=== PATIENT | male | born 1960 | race American Indian/Alaskan Native ===

== ENCOUNTER 2019-11-22 20:45 | Inpatient (IN) | payer OTHER ==
--- NOTE | 2019-11-22 21:10 | Consultation ---
History of Present Illness Consult date: 11/22/19 Chief complaint: [facility] [facility] Services Date of Service: 11/22/2019 20:29:18 Impression: Left Hemispheric Infarct MCA Distribution Infarct Comments/Sign-Out: Right sided deficit, left MCA ischemic signs on CT. NO information, unknown LKN, reports stroke "yesterday", medications unknown. No tPA due to lack of information and early ischemic signs on CT. CTA pending, if [facility] transfer for CRIS. Metrics: Last Known Well: Unknown [employer] Notification Time: 11/22/2019 20:28:54 Arrival Time: 11/22/2019 20:45:28 Stamp Time: 11/22/2019 20:29:18 Time First Login Attempt: 11/22/2019 20:31:05 Video Start Time: 11/22/2019 20:31:05 Symptoms: altered NIHSS Start Assessment Time: 11/22/2019 20:47:00 Patient is not a candidate for tPA. Patient was not deemed candidate for tPA thrombolytics because of Unknown history, time of onset, meds. Core infarct on CT. Video End Time: 11/22/2019 21:05:02 CT head was reviewed and results were: early anterior left MCA ischemic signs. ASPECT 7 Clinical Presentation is Suggestive of Large Vessel Occlusive Disease, Recommendations are as Follows CTA Head and Neck. Advanced Imaging to be Reviewed by ED Provider and CRIS. ED Physician notified of diagnostic impression and management plan on 11/22/2019 21:04:40 Our recommendations are outlined below. Recommendations: Activate Stroke Protocol Admission/Order Set Stroke/Telemetry Floor Neuro Checks Bedside Swallow Eval DVT Prophylaxis IV Fluids, Normal Saline Head of Bed 30 Degrees Euglycemia and Avoid Hyperthermia (PRN Acetaminophen) Rectal ASA Routine Consultation with Inhouse Neurology for Follow up Care Sign Out: Discussed with Emergency Department Provider History of Present Illness: Patient is a 59 year old Male. Handedness unknown. 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 Patient can not give any history, no family available. Medications unknown. Prior stroke unknown type or when. Patient states he had a stroke "yesterday". he is not a reliable historian. For EMS glucose 111, BP 110/69, 99% saturation on room air, pulse 88. Last seen normal was within 4.5 hours. There is no history of hemorrhagic complications or intracranial hemorrhage. There is no history of Recent Anticoagulants. There is no history of recent major surgery. There is no history of recent stroke. Examination: BP(EMS 110/69, 108/89), Blood Glucose(111) 1A: Level of Consciousness - Alert; keenly responsive + 0 1B: Ask Month and Age - Could Not Answer Either Question Correctly + 2 1C: Blink Eyes & Squeeze Hands - Performs 1 Task + 1 2: Test Horizontal Extraocular Movements - Normal + 0 3: Test Visual Owusu - No Visual Loss + 0 4: Test Facial Palsy (Use Grimace if Obtunded) - Minor paralysis (flat nasolabial fold, smile asymmetry) + 1 5A: Test Left Arm Motor Drift - No Drift for 10 Seconds + 0 5B: Test Right Arm Motor Drift - Drift, but doesn't hit bed + 1 6A: Test Left Leg Motor Drift - No Drift for 5 Seconds + 0 6B: Test Right Leg Motor Drift - Drift, but doesn't hit bed + 1 7: Test Limb Ataxia (FNF/Heel-Solomon) - No Ataxia + 0 8: Test Sensation - Normal; No sensory loss + 0 9: Test Language/Aphasia - Severe Aphasia: Fragmentary Expression, Inference Needed, Cannot Identify Materials + 2 10: Test Dysarthria - Mild-Moderate Dysarthria: Slurring but can be understood + 1 11: Test Extinction/Inattention - No abnormality + 0 NIHSS Score: 9 Due to the immediate potential for life-threatening deterioration due to underlying acute neurologic illness, I spent 35 minutes providing critical care. This time includes time for face to face visit via telemedicine, review of medical records, imaging studies and discussion of findings with providers, the patient and/or family. Dr Yolanda Edwards [facility] Case [id number] Medications and Allergies Allergies Allergy/AdvReac Type Severity Reaction Status Date / Time Unable to Assess Allergy Unverified 11/22/19 20:49
--- NOTE | 2019-11-22 21:24 | Emergency Department Report ---
HPI - General Time Seen by Provider: 11/22/19 20:54 - HPI HPI: Room 18 The patient is a 59-year-old male present with a chief complaint of expressive aphasia and right-sided weakness. The patient is unable to provide a history and mostly replies "yes" regardless of the question asked of him. The patient reportedly from EMS had altered mental status and right-sided weakness with bystanders but states the symptoms may have began at approximately 18: 00 however this is unable to be corroborated. ED Past Medical Hx - Family History Family history: no significant - Social History Smoking Status: Unknown if ever smoked ED Review of Systems ROS: Stated complaint: CODE STROKE Other details as noted in HPI Comment: Unobtainable due to pts medical conditions Physical Exam - Physical Exam Physical Exam: GENERAL: The patient is well-developed well-nourished male lying on stretcher not appearing to be in acute distress. [] HEENT: Normocephalic. Atraumatic. Extraocular motions are intact. Patient has moist mucous membranes. NECK: Supple. Trachea midline CHEST/LUNGS: Clear to auscultation. There is no respiratory distress noted. HEART/CARDIOVASCULAR: Regular. There is no tachycardia. There is no gallop rub or murmur. ABDOMEN: Abdomen is soft, nontender. Patient has normal bowel sounds. There is no abdominal distention. SKIN: There is no rash. There is no edema. There is no diaphoresis. NEURO: The patient is awake and alert. The patient answers "yes" to most questions regardless of what is asked of him. The patient has a right-sided facial droop but otherwise cranial nerves II through XII grossly intact. Patient exhibits weakness raising right upper extremity and right lower extremity when compared to the left. MUSCULOSKELETAL: There is no evidence of acute injury. ED Course - Consultations Consultation #1: 11/22/19 22:17 Tele-neurology paged 11/22/19 22:32 CTA discussed with telemetry neurologist. Recommends patient be transferred to a higher level care where neurology and neurosurgery is present as they are concerned this could evolve into malignant MCA syndrome Consultation #2: 11/22/19 22:32 [facility] transfer line called 11/22/19 22:56 Case discussed with [facility] physician bell clerk Dr. Travis- no beds available Consultation #3: 11/22/19 22:37 [place] transfer line called 11/22/19 23:05 Case discussed with [facility] physician -states he has reviewed the CT scan and there is no acute intervention necessary at this time. He states it is reasonable to keep the patient admitted at this hospital and administer aspirin and Plavix and obtain an MRI. He states that the swelling is in a smaller branch and unlikely to develop into malignant MCA syndrome requiring craniotomy 11/22/19 23:16 Case discussed with [facility] physician- agrees with Dr. Ortega ED Medical Decision Making - Lab Data Result diagrams: 11/22/19 21:19 11/22/19 21:19 Laboratory Tests 11/22/19 11/22/19 11/22/19 21:19 21:19 21:19 WBC 8.9 RBC 4.07 Hgb 13.3 Hct 38.7 MCV 95 H MCH 33 H MCHC 35 H RDW 13.9 Plt Count 299 Lymph % (Auto) 32.6 Mills % (Auto) 10.1 H Eos % (Auto) 0.6 Baso % (Auto) 0.7 Lymph # 2.9 Mills # 0.9 H Eos # 0.0 Baso # 0.1 Seg Neutrophils % 56.0 Seg Neutrophils # 5.0 PT 13.7 INR 1.04 APTT 25.6 Thrombin Time Sodium 134 L Potassium 4.6 Chloride 100.4 Carbon Dioxide 24 Anion Gap 14 BUN 13 Creatinine 1.2 Estimated GFR > 60 BUN/Creatinine Ratio 11 Glucose 108 H Calcium 9.0 Troponin T < 0.010 11/22/19 21:19 WBC RBC Hgb Hct MCV MCH MCHC RDW Plt Count Lymph % (Auto) Mills % (Auto) Eos % (Auto) Baso % (Auto) Lymph # Mills # Eos # Baso # Seg Neutrophils % Seg Neutrophils # PT INR APTT Thrombin Time 16.5 Sodium Potassium Chloride Carbon Dioxide Anion Gap BUN Creatinine Estimated GFR BUN/Creatinine Ratio Glucose Calcium Troponin T - EKG Data -: EKG Interpreted by In EKG shows normal: sinus rhythm Rate: normal - EKG Data When compared to previous EKG there are: previous EKG unavailable Interpretation: other (No ischemic changes seen) - Radiology Data Radiology results: report reviewed (CT head, CTA neck, CTA head), image reviewed (CT head, CTA neck, CTA head) Findings [facility] [address] [place] [address] Cat Scan Report Signed Patient: AMY DELGADILLO MR#: [id number] : 1960 Acct:[id number] Age/Sex: 59 / M ADM Date: 11/22/19 Loc: ED Attending Dr: Ordering Physician: CARLOS A ROBERTS MD Date of Service: 11/22/19 Procedure(s): CT head/brain wo con Accession Number(s): [id number] cc: CARLOS A ROBERTS MD CT head/brain wo con INDICATION / CLINICAL INFORMATION: 59 years Male; neuro deficits <6hrs or sx present upon awakening. TECHNIQUE: Routine CT head without contrast. All CT scans at this location are performed using CT dose reduction for ALARA by means of automated exposure control. COMPARISON: None. FINDINGS: BRAIN / INTRACRANIAL CONTENTS: The motion degrades image quality. However, there is slight decrease attenuation involving the left frontal lobe including the operculum as well as along the left insula indicative of developing acute infarct at. There is associated mild mass effect and sulcal effacement. There is no clear CT evidence of acute intracranial hemorrhage. The ventricular system is appropriate in size and configuration. ORBITS: No significant abnormality of visualized orbits. SINUSES / MASTOIDS: There is near complete opacification of the visualized right maxillary sinus. There is scattered opacification within the right ethmoid air cells. CRANIOCERVICAL JUNCTION: No significant abnormality. ADDITIONAL FINDINGS: None. IMPRESSION: 1. There is mild edema involving left frontal lobe and insula as detailed above indicative of evolving acute infarct. The study was specified as code stroke and called to Dr. Roberts in the ER at 8:28 PM Central standard time. Signer Name: Dillan Dimas MD Signed: 11/22/2019 9:31 PM Workstation Name: [id number] Transcribed By: MR Dictated By: Dillan Dimas MD Electronically Authenticated By: Dillan Dimas MD Signed Date/Time: 11/22/192130 DD/ 24 TD/TT: Findings [facility] [address] [place] [address] Cat Scan Report Signed Patient: AMY DELGADILLO MR#: [id number] : 1960 Acct:[id number] Age/Sex: 59 / M ADM Date: 11/22/19 Loc: ED Attending Dr: Ordering Physician: CARLOS A ROBERTS MD Date of Service: 11/22/19 Procedure(s): CT angio neck Accession Number(s): [id number] cc: CARLOS A ROBERTS MD CT angio neck INDICA TION / CLINICAL INFORMATION: 59 years Male; Altered mental status, right facial droop. TECHNIQUE: Thin cut axial images obtained through the head during IV bolus contrast administration. Sagittal, coronal, and 3 plane MIP reconstructions performed by the technologist. NASCET type criteria used evalu ate stenoses. All CT scans at this location are performed using CT dose reduction for ALARA by means of automated exposure control. COMPARISON: None available. FINDINGS: CAROTID ARTERIES: There is mild calcified plaque involving left carotid bifurcation and proximal left ICA without significant stenosis by NASCET criteria. The left carotid arteries are otherwise unremarkable. There is also mild calcified plaque involving right carotid bifurcation and proximal right ICA without significant stenosis by NASCET criteria. VERTEBRAL ARTERIES: There is calcification at the origin of the right vertebral artery with mild stenosis at. The right vertebral artery is dominant. There is developmental hypo plasia of the left vertebral artery without significant focal narrowing. ARCH: There is developmental common origin of the brachiocephalic and left common carotid arteries. There are small foci of calcification near the origin of the left subclavian artery without significant stenosis. ADDITIONAL FINDINGS: There are scattered cervical lymph nodes particularly along the jugular chains which are nonspecific and correlation would be needed at. The largest nodes approaching [address] short axis diameter. There is also prominence of the base of tongue soft tissues indicative of lymphoid hypertrophy. IMPRESSION: There is mild calcification involving the proximal internal carotid arteries bi laterally without significant stenosis by NASCET criteria. There is calcification at the origin of the right vertebral artery with mild stenosis. Signer Name: Dillan Dimas MD Signed: 11/22/2019 9:58 PM Workstation Name: [id number] Transcribed By: MR Dictated By: Dillan Dimas MD Electronically A uthenticated By: Dillan Dimas MD Signed Date/Time: 11/22/192157 DD/ 50 TD/TT: Findings [facility] [address] [place] [address] Cat Scan Report Signed Patient: AMY DELGADILLO MR#: [id number] : 1960 Acct:[id number] Age/Sex: 59 / M ADM Date: 11/22/19 Loc: ED Attending Dr: Reji lam Physician: CARLOS A ROBERTS MD Date of Service: 11/22/19 Procedure(s): CT angio head Accession Number(s): [id number] cc: CARLOS A ROBERTS MD CT angio head INDICATION / CLINICAL INFORMATION: 59 years Male; Altered mental status, right facial droop. TECHNIQUE: Thin cut axial images obtained through the head during IV bolus contrast administration. Sagittal, coronal, and 3 plane MIP reconstructions performed by the technologist. NASCET type criteria used evaluate stenoses. Automated exposure control utilized for radiation reduction purposes. COMPARISON: None available. FINDINGS: INTERNAL CAROTID ARTERIES: There is no significant focal stenosis involving the distal internal carotid arteries by NASCET criteria. VERTEBROBASILAR SYSTEM: There is developmental hypoplasia the distal left vertebral artery. There is no significant focal stenosis involving mildly hypoplastic basilar artery. CEREBRAL ARTERIES: There is relative proximal bifurcation left MCA which represents a developmental variant. However, there is significant focal stenosis of the anterior branch with notable paucity of branches at within the left frontal region. Additionally, edema was seen at within the left frontal lobe including the operculum and insular region compatible with evolving infarct at. There is no significant foc al stenosis involving anterior cerebral or right middle cerebral arteries. 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 ANEURYSM: None identified. ADDITIONAL FINDINGS: There is near complete opacification of the right maxillary sinus. The dural venous sinuses opacify with contrast. IMPRESSION: There is marked focal stenosis involving the anterior branch of the left MCA bifurcation with decreased opacification of the left frontal branches as detailed above. There is edema within the left frontal operculum and insular region which correlates with the earlier CT and compatible with evolving infarct. Signer Name: Dillan Dimas MD Signed: 11/22/2019 10:08 PM Workstation Name: [id number] Transcribed By: MR Dictated By: Dillan Dimas MD Electronically Authenticated By: Dillan Dimas MD Signed Date/Time: 11/22/192207 DD/ 57 TD/TT: - Differential Diagnosis CVA Critical care attestation.: If time is entered above; I have spent that time in minutes in the direct care of this critically ill patient, excluding procedure time. ED Disposition Clinical Impression: CVA (cerebral vascular accident) Disposition: DC-[id number] OP ADMIT IP TO THIS HOSP Is pt being admited?: Yes Does the pt Need Aspirin: Yes Condition: Fair Time of Disposition: 23:17 (Hospitalist paged (Dr Gonzalez))
[2019-11-22 21:26] LABS: Basophils # (Auto) 0.1 K/mm3 (0.0-0.1); Basophils % (Auto) 0.7 % (0.0-1.8); Eosinophils % (Auto) 0.6 % (0.0-4.3); Hematocrit 38.7 % (35.5-45.6); Hemoglobin 13.3 gm/dl (11.8-15.2); Lymphocytes # (Auto) 2.9 K/mm3 (1.2-5.4); Lymphocytes % (Auto) 32.6 % (13.4-35.0); Mean Corpuscular HGB Conc 35 % (32-34); Mean Corpuscular Volume 95 fl (84-94); Monocytes # (Auto) 0.9 K/mm3 (0.0-0.8); Monocytes % (Auto) 10.1 % (0.0-7.3); Platelet Count 299 K/mm3 (140-440); Red Blood Count 4.07 M/mm3 (3.65-5.03); Red Cell Distribution Width 13.9 % (13.2-15.2)
--- NOTE | 2019-11-22 21:36 | Cat Scan Report ---
CT head/brain wo con INDICATION / CLINICAL INFORMATION: 59 years Male; neuro deficits <6hrs or sx present upon awakening. TECHNIQUE: Routine CT head without contrast. All CT scans at this location are performed using CT dos e reduction for ALARA by means of automated exposure control. COMPARISON: None. FINDINGS: BRAIN / INTRACRANIAL CONTENTS: The motion degrades image quality. However, there is slight decrease a ttenuation involving the left frontal lobe including the operculum as well as along the left insula i ndicative of developing acute infarct at. There is associated mild mass effect and sulcal effacement. There is no clear CT evidence of acute intracranial hemorrhage. The ventricular system is appropriat e in size and configuration. ORBITS: No significant abnormality of visualized orbits. SINUSES / MASTOIDS: There is near complete opacification of the visualized right maxillary sinus. The re is scattered opacification within the right ethmoid air cells. CRANIOCERVICAL JUNCTION: No significant abnormality. ADDITIONAL FINDINGS: None. IMPRESSION: 1. There is mild edema involving left frontal lobe and insula as detailed above indicative of evolvin g acute infarct. The study was specified as code stroke and called to Dr. Peraza in the ER at 8:28 PM Central standard t amarjit. Signer Name: Dillan Dimas MD Signed: 11/22/2019 9:31 PM Workstation Name: [id number]
[2019-11-22 21:39] LABS: INR 1.04 (0.87-1.13)
[2019-11-22 21:40] LABS: Partial Thromboplastin Time 25.6 Sec. (24.2-36.6)
[2019-11-22 21:49] LABS: BUN/Creatinine Ratio 11; Blood Urea Nitrogen 13 mg/dL (9-20); Hemolysis Index 15
--- NOTE | 2019-11-22 22:02 | Cat Scan Report ---
CT angio neck INDICATION / CLINICAL INFORMATION: 59 years Male; Altered mental status, right facial droop. TECHNIQUE: Thin cut axial images obtained through the head during IV bolus contrast administration. S agittal, coronal, and 3 plane MIP reconstructions performed by the technologist. NASCET type criteria used evaluate stenoses. All CT scans at this location are performed using CT dose reduction for ALAR A by means of automated exposure control. COMPARISON: None available. FINDINGS: CAROTID ARTERIES: There is mild calcified plaque involving left carotid bifurcation and proximal left ICA without significant stenosis by NASCET criteria. The left carotid arteries are otherwise unremar kable. There is also mild calcified plaque involving right carotid bifurcation and proximal right ICA withou t significant stenosis by NASCET criteria. VERTEBRAL ARTERIES: There is calcification at the origin of the right vertebral artery with mild sten osis at. The right vertebral artery is dominant. There is developmental hypoplasia of the left verteb ral artery without significant focal narrowing. ARCH: There is developmental common origin of the brachiocephalic and left common carotid arteries. T here are small foci of calcification near the origin of the left subclavian artery without significan t stenosis. ADDITIONAL FINDINGS: There are scattered cervical lymph nodes particularly along the jugular chains w hich are nonspecific and correlation would be needed at. The largest nodes approaching [address] short axis diameter. There is also prominence of the base of tongue soft tissues indicative of lym phoid hypertrophy. IMPRESSION: There is mild calcification involving the proximal internal carotid arteries bilaterally without sign ificant stenosis by NASCET criteria. There is calcification at the origin of the right vertebral artery with mild stenosis. Signer Name: Dillan Dimas MD Signed: 11/22/2019 9:58 PM Workstation Name: [id number]
--- NOTE | 2019-11-22 22:12 | Cat Scan Report ---
CT angio head INDICATION / CLINICAL INFORMATION: 59 years Male; Altered mental status, right facial droop. TECHNIQUE: Thin cut axial images obtained through the head during IV bolus contrast administration. S agittal, coronal, and 3 plane MIP reconstructions performed by the technologist. NASCET type criteria used evaluate stenoses. Automated exposure control utilized for radiation reduction purposes. COMPARISON: None available. FINDINGS: INTERNAL CAROTID ARTERIES: There is no significant focal stenosis involving the distal internal carot id arteries by NASCET criteria. VERTEBROBASILAR SYSTEM: There is developmental hypoplasia the distal left vertebral artery. There is no significant focal stenosis involving mildly hypoplastic basilar artery. CEREBRAL ARTERIES: There is relative proximal bifurcation left MCA which represents a developmental v ariant. However, there is significant focal stenosis of the anterior branch with notable paucity of b ranches at within the left frontal region. Additionally, edema was seen at within the left frontal lo be including the operculum and insular region compatible with evolving infarct at. There is no significant focal stenosis involving anterior cerebral or right middle cerebral arteries. 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 ANEURYSM: None identified. ADDITIONAL FINDINGS: There is near complete opacification of the right maxillary sinus. The dural jareth ous sinuses opacify with contrast. IMPRESSION: There is marked focal stenosis involving the anterior branch of the left MCA bifurcation with decreas ed opacification of the left frontal branches as detailed above. There is edema within the left front al operculum and insular region which correlates with the earlier CT and compatible with evolving inf arct. Signer Name: Dillan Dimas MD Signed: 11/22/2019 10:08 PM Workstation Name: [id number]
[2019-11-22] MEDS ORDERED: ASPIRIN 325 MG TAB PO ONE (22:19)
[2019-11-22] MEDS ORDERED: CLOPIDOGREL 300 MG TAB PO ONE (23:06)
[2019-11-23] MEDS ORDERED: MORPHINE 2 MG/1 ML INJ IV PRN (01:28)
[2019-11-23] MEDS ORDERED: ONDANSETRON 4 MG/2 ML INJ IV PRN (01:28)
[2019-11-23] MEDS ORDERED: PROMETHAZINE 25 MG RECT SUPP PR PRN (01:28)
[2019-11-23] MEDS ORDERED: ACETAMINOPHEN 325 MG TAB PO PRN (01:28)
[2019-11-23] MEDS ORDERED: METOCLOPRAMIDE 10 MG TAB PO PRN (01:28)
[2019-11-23] MEDS ORDERED: MAGNESIUM HYDROXIDE (MOM) ORAL LIQD UDC PO PRN (01:28)
--- NOTE | 2019-11-23 01:44 | History and Physical Report ---
History of Present Illness Date of examination: 11/23/19 Date of admission: 11/22/19 23:29 Chief complaint: Right sided weakness History of present illness: [id number]--[place] male presenting to the emergency room today with a complaint of expressive aphasia and right-sided weakness. Patient was brought into the emergency room by EMS. He was said to have had a change in mental status and right-sided weakness witnessed by bystanders who indicated that symptoms may have started about 1800 today. Patient unable to give a very good history corresponds by nodding his head when asked questions. CT scan of the head was compatible with CVA.Tele neurologist was consulted. Initial recommendation was to transfer to another facility however final decisi on as taken by the neurologists and neurosurgeons was to monitor patient in this facility as patient does not need any urgent intervention. Past History Past Medical History: other (Unknown) Past Surgical History: Other ( unknown) Social history: other ( unknown) Family history: other ( unknown) Medications and Allergies Allergies Allergy/AdvReac Type Severity Reaction Status Date / Time Unable to Assess Allergy Verified 11/23/19 00:04 Active Meds: Active Medications Acetaminophen (Tylenol) 650 mg PO Q4H PRN PRN Reason: Pain, Mild (1-3) Atorvastatin Calcium (Lipitor) 80 mg PO ONCE ONE Stop: 11/23/19 22:53 Bisacodyl (Dulcolax) 10 mg [place] QDAY PRN PRN Reason: Constipation Magnesium Hydroxide (Milk Of Magnesia) 30 ml PO Q4H PRN PRN Reason: Constipation Sodium Chloride (Sodium Chloride Flush Syringe 10 Ml) 10 ml INJ PRN PRN PRN Reason: LINE FLUSH Review of Systems ROS unobtainable: due to mental status Exam - Constitutional Vitals: Temp Pulse Resp BP Pulse Ox 98.5 F 58 L 18 112/61 94 11/22/19 21:39 11/23/19 01:00 11/22/19 21:05 11/23/19 01:00 11/23/19 01:00 General appearance: Present: no acute distress, well-nourished - EENT Eyes: Present: PERRL, EOM intact. Absent: scleral icterus ENT: hearing intact, clear oral mucosa, dentition normal - Neck Neck: Present: supple, normal ROM - Respiratory Respiratory effort: normal Respiratory: bilateral: CTA - Cardiovascular Rhythm: regular Heart Sounds: Present: S1 & S2. Absent: gallop, systolic murmur, diastolic murmur, rub - Extremities Extremities: no ischemia, pulses intact, pulses symmetrical, No edema, Full ROM Peripheral Pulses: within normal limits - Abdominal General gastrointestinal: Present: soft, non-tender, normal bowel sounds. Absent: mass - Integumentary Integumentary: Present: clear, warm, dry. Absent: rash - Musculoskeletal Musculoskeletal: right sided weakness - Psychiatric Psychiatric: appropriate mood/affect, intact judgment & insight, memory intact, cooperative - Neurologic Neurologic: CNII-XII intact, focal deficits (Right-sided weakness), moves all extremities HEART Score - HEART Score Troponin: Troponin T < 0.010 ng/mL (0.00-0.029) 11/22/19 21:19 Results - Labs CBC & Chem 7: 11/22/19 21:19 11/22/19 21:19 Labs: Abnormal lab results 11/22/19 11/22/19 Range/Units 21:19 21:19 MCV 95 H (84-94) fl MCH 33 H (28-32) pg MCHC 35 H (32-34) % [place] % (Auto) 10.1 H (0.0-7.3) % [place] # 0.9 H (0.0-0.8) K/mm3 Sodium 134 L (137-145) mmol/L Glucose 108 H (75-100) mg/dL Assessment and Plan - Patient Problems (1) CVA (cerebral vascular accident) Current Visit: Yes Status: Acute Plan to address problem: Patient admitted and placed on daily aspirin. We will schedule for carotid Doppler and MRI of the brain. We will place a consult to neurology for further evaluation and recommendation. (2) DVT prophylaxis Current Visit: Yes Status: Acute Plan to address problem: Patient placed on subcutaneous heparin. (3) Full code status Current Visit: Yes Status: Acute
[2019-11-23] MEDS: HEPARIN 5,000 UNIT/1 ML VIAL SUB-Q SCH ×3 (08:00→23:59)
[2019-11-23] MEDS ORDERED: HEPARIN 5,000 UNIT/1 ML VIAL ONE ×2 (08:02→14:38)
--- NOTE | 2019-11-23 11:59 | Vascular Lab Report ---
"DUPLEX DOPPLER ULTRASOUND CAROTID, BILATERAL INDICATION: stroke. COMPARISON: None available. FINDINGS: RIGHT CAROTID: No significant atherosclerotic plaque. CCA velocity: 123 cm/sec. ICA peak systolic velocity: 93 cm/sec. ICA/CCA PSV Ratio: Less than 1. Right Vertebral Artery: Antegrade flow. LEFT CAROTID: No significant atherosclerotic plaque. CCA velocity: 126 cm/sec. ICA peak systolic velocity: 94 cm/sec. ICA/CCA PSV Ratio: Less than 1. Left Vertebral Artery: Antegrade flow. IMPRESSION: 1. Right Internal Carotid Artery: Less than 50% diameter stenosis. 2. Left Internal Carotid Artery: Less than 50% diameter stenosis. 3. There is mild intimal thickening in both internal carotids. Velocity criteria are extrapolated from diameter data as defined by the Society of Radiologists in Ul trasound Consensus Conference, Radiology 2003; 229;340-346. Degree of || ICA PSV || Plaque || ICA/CCA Stenosis (%) || (cm/sec) || estimate (%) || PSV Ratio - Normal...............<125..............None.................<2.0 - <50....................<125..............<50....................<2.0 - 50-69................125-230.........>50....................2.0-4.0 - >70 but <100....>230..............>50....................>4.0 - Near...................High, low, .....visible................variable occlusion or none - Total...................None.............visible;................N/A occlusion no lumen Signer Name: Deven Lopez MD Signed: 11/23/2019 11:55 AM Workstation Name: [id number]"
[2019-11-23] MEDS: ASPIRIN 300 MG RECT SUPP PR SCH (14:24)
--- NOTE | 2019-11-23 17:39 | Consultation ---
History of Present Illness Chief complaint: right sided weakness History of present illness: This is the Tele Neurology consultation. [id number]--[place] male presenting to the emergency room today with a complaint of expressive aphasia and right-sided weakness. Patient was brought into the emergency room by EMS. He was said to have had a change in mental status and right-sided weakness witnessed by bystanders who indicated that symptoms may have started about 1800 today. Patient unable to give a very good history corresponds by nodding his head when asked questions. CT scan of the head was compatible with CVA.Tele neurologist was consulted. Initial recommendation was to transfer to another facility however final decision as taken by the neurologists and neurosurgeons was to monitor patient in this facility as patient does not need any urgent intervention. Past History Past Medical History: other (Unknown) Past Surgical History: Other ( unknown) Social history: other ( unknown) Family history: other ( unknown) Medications and Allergies Allergies Allergy/AdvReac Type Severity Reaction Status Date / Time Unable to Assess Allergy Verified 11/23/19 00:04 Active Meds: Active Medications Acetaminophen (Tylenol) 650 mg PO Q4H PRN PRN Reason: Pain, Mild (1-3) Atorvastatin Calcium (Lipitor) 80 mg PO ONCE ONE Stop: 11/23/19 22:53 Bisacodyl (Dulcolax) 10 mg [place] QDAY PRN PRN Reason: Constipation Magnesium Hydroxide (Milk Of Magnesia) 30 ml PO Q4H PRN PRN Reason: Constipation Sodium Chloride (Sodium Chloride Flush Syringe 10 Ml) 10 ml INJ PRN PRN PRN Reason: LINE FLUSH Review of Systems ROS unobtainable: due to mental status Past History Past Medical History: other (Unknown) Past Surgical History: Other ( unknown) Social history: other ( unknown) Family history: other ( unknown) Medications and Allergies Allergies Allergy/AdvReac Type Severity Reaction Status Date / Time Unable to Assess Allergy Verified 11/23/19 00:04 Active Meds: Active Medications Acetaminophen (Tylenol) 650 mg PO Q4H PRN PRN Reason: Pain, Mild (1-3) Aspirin (Aspirin) 300 mg KS QDAY YELENA Last Admin: 11/23/19 14:24 Dose: Not Given Documented by: Atorvastatin Calcium (Lipitor) 40 mg PO QHS YELENA Bisacodyl (Dulcolax) 10 mg [place] QDAY PRN PRN Reason: Constipation Heparin Sodium (Porcine) (Heparin) 5,000 unit SUB-Q Q8HR [facility] Last Admin: 11/23/19 14:58 Dose: 5,000 unit Documented by: Magnesium Hydroxide (Milk Of Magnesia) 30 ml PO Q4H PRN PRN Reason: Constipation Metoclopramide HCl (Reglan) 10 mg PO Q6H PRN PRN Reason: Nausea And Vomiting Morphine Sulfate (Morphine) 2 mg IV Q4H PRN PRN Reason: Pain, Moderate (4-6) Ondansetron HCl (Zofran) 4 mg IV Q8H PRN PRN Reason: Nausea And Vomiting Promethazine HCl (Phenergan) 25 mg [place] Q6H PRN PRN Reason: Nausea And Vomiting Sodium Chloride (Sodium Chloride Flush Syringe 10 Ml) 10 ml IV BID [facility] Last Admin: 11/23/19 13:00 Dose: 10 ml Documented by: Sodium Chloride (Sodium Chloride Flush Syringe 10 Ml) 10 ml IV PRN PRN PRN Reason: LINE FLUSH Physical Examination - Vital Signs Vital Signs: Vital Signs Pulse Resp Pulse Ox 66 18 98 11/22/19 21:05 11/22/19 21:05 11/22/19 21:05 - Physical Exam Narrative exam: Neurology examination: MS- alert awake. he czn tell his name. lang- naming impaired- also repetition somewhat impaired. cn- eomi- possible right central facial paresis. m- right arm drift and also right leg drift. Laboratory Results - last 72 hr 11/22/19 11/22/19 11/22/19 21:19 21:19 21:19 WBC 8.9 RBC 4.07 Hgb 13.3 Hct 38.7 MCV 95 H MCH 33 H MCHC 35 H RDW 13.9 Plt Count 299 Lymph % (Auto) 32.6 [place] % (Auto) 10.1 H Eos % (Auto) 0.6 Baso % (Auto) 0.7 Lymph # 2.9 [place] # 0.9 H Eos # 0.0 Baso # 0.1 Seg Neutrophils % 56.0 Seg Neutrophils # 5.0 PT 13.7 INR 1.04 APTT 25.6 Thrombin Time Sodium 134 L Potassium 4.6 Chloride 100.4 Carbon Dioxide 24 Anion Gap 14 BUN 13 Creatinine 1.2 Estimated GFR > 60 BUN/Creatinine Ratio 11 Glucose 108 H Calcium 9.0 Troponin T < 0.010 11/22/19 21:19 WBC RBC Hgb Hct MCV MCH MCHC RDW Plt Count Lymph % (Auto) [place] % (Auto) Eos % (Auto) Baso % (Auto) Lymph # [place] # Eos # Baso # Seg Neutrophils % Seg Neutrophils # PT INR APTT Thrombin Time 16.5 Sodium Potassium Chloride Carbon Dioxide Anion Gap BUN Creatinine Estimated GFR BUN/Creatinine Ratio Glucose Calcium Troponin T - Constitutional General appearance: comfortable Results - Laboratory Findings CBC and BMP: 11/22/19 21:19 11/22/19 21:19 Abnormal Lab Findings: Abnormal Labs 11/22/19 11/22/19 21:19 21:19 MCV 95 H MCH 33 H MCHC 35 H [place] % (Auto) 10.1 H [place] # 0.9 H Sodium 134 L Glucose 108 H Assessment and Plan rule out left frontal stroke. unkown risk factor. cta- left mca high grade stenosis. pt. was seen by tele neuro in ED. time of onset unknown. cta- neck- unremarkable. eho- left ventricle dilated- ef- 25-30%. plan- cont. asa 325 mg q day and lipitor 80 mg q hs. 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 thanks.
--- NOTE | 2019-11-23 19:53 | Event Note ---
Date: 11/23/19 59-year-old male presented to the ED with expressive aphasia right-sided hemiparesis and mental status changes. Patient remains aphasic but alert. Can speak with a nod of head. Found to have acute CVA. CT scan initially show high-grade stenosis however repeat scan showed 50% stenosis right ICA and left ICA. Echocardiogram complete ejection fraction 25 to 30%. Patient blood pressure 117/80 with pulse of 56 allowing permissive hypertension. Patient has no evidence of failure on physical exam. Clear. Evaluate continue evaluation tomorrow physical therapy speech PT to evaluate discharge planning. Most likely will need inpatient rehab.
[2019-11-24 05:05] LABS: Basophils # (Auto) 0.1 K/mm3 (0.0-0.1); Basophils % (Auto) 1.2 % (0.0-1.8); Eosinophils # (Auto) 0.1 K/mm3 (0.0-0.4); Eosinophils % (Auto) 0.9 % (0.0-4.3); Hematocrit 41.9 % (35.5-45.6); Hemoglobin 14.5 gm/dl (11.8-15.2); Lymphocytes # (Auto) 2.8 K/mm3 (1.2-5.4); Mean Corpuscular HGB Conc 35 % (32-34); Mean Corpuscular Volume 93 fl (84-94); Monocytes # (Auto) 0.6 K/mm3 (0.0-0.8); Platelet Count 323 K/mm3 (140-440); Red Blood Count 4.52 M/mm3 (3.65-5.03); Red Cell Distribution Width 13.9 % (13.2-15.2)
[2019-11-24 05:16] LABS: INR 0.97 (0.87-1.13)
[2019-11-24 05:21] LABS: BUN/Creatinine Ratio 12; Blood Urea Nitrogen 13 mg/dL (9-20); Calcium 9.1 mg/dL (8.4-10.2); Hemolysis Index 17
[2019-11-24 06:17] LABS: Chol/HDL Ratio 4.12 %; HDL Cholesterol 40 mg/dL (40-59); LDL Cholesterol,Direct 115 mg/dL (50-130)
[2019-11-24] MEDS: HEPARIN 5,000 UNIT/1 ML VIAL SUB-Q SCH ×3 (07:00→22:40)
[2019-11-24] MEDS: ASPIRIN 300 MG RECT SUPP PR SCH (11:30)
--- NOTE | 2019-11-24 15:27 | Progress Note ---
Assessment and Plan - Patient Problems (1) CVA (cerebral vascular accident) Current Visit: Yes Status: Acute Plan to address problem: Patient with CVA. On physical exam and CT scan head. Only 50% stenosis bilateral carotids. Patient will most likely need inpatient therapy if at all possible. Will level to confirm stroke findings on MRI to determine the extent of anticoagulation at this time. Patient did have adequate bedside swallowing. I think patient can eat will get speech therapy but will allow patient a meal and see how he responds to eating. Mechanical soft. Continue physical therapy evaluation. Continue antiplatelet anti-lipid. (2) DVT prophylaxis Current Visit: Yes Status: Acute (3) Full code status Current Visit: Yes Status: Acute Subjective Date of service: 11/24/19 Principal diagnosis: Stroke Interval history: Patient was not able to get MRI. Still cannot get in touch with family. I tri ed. Case management is tried. Multiple attempts. Patient now will only answer questions yes or no. Patient does not know where he lives. Only knows his name. Does not know who he lives with does not know if he is or not. Objective - Constitutional Vitals: Vital Signs - 12hr 11/24/19 11/24/19 11/24/19 08:14 12:43 13:29 Temperature 98.1 F 98.5 F Pulse Rate 62 65 Respiratory 18 18 Rate Blood Pressure 100/64 108/64 O2 Sat by Pulse 96 98 99 Oximetry General appearance: Present: no acute distress, well-nourished, other (Able to tell me he is not weak.) - EENT Eyes: PERRL, EOM intact ENT: hearing intact, clear oral mucosa Ears: bilateral: normal - Neck Neck: supple, normal ROM - Respiratory Respiratory effort: normal Respiratory: bilateral: CTA - Breasts Breasts: normal - Cardiovascular Rhythm: regular Heart Sounds: Present: S1 & S2. Absent: gallop, rub Extremities: pulses intact, No edema, normal color, Full ROM - Gastrointestinal General gastrointestinal: Present: soft, non-tender, non-distended, normal bowel sounds - Genitourinary Male genitourinary: normal - Integumentary Integumentary: clear, warm, dry - Musculoskeletal Musculoskeletal: strength equal bilaterally, generalized weakness - Neurologic Neurologic: focal deficits, moves all extremities, other (Extremely poor cognition.) - Psychiatric Psychiatric: no appropriate mood/affect, no intact judgment & insight, no memory intact, other (Flat mood.) - Labs CBC & Chem 7: 11/24/19 04:51 11/24/19 04:51 Labs: Abnormal lab results 11/24/19 Range/Units 04:51 MCHC 35 H (32-34) % Lymph % (Auto) 44.0 H (13.4-35.0) % [place] % (Auto) 10.0 H (0.0-7.3) % HEART Score - HEART Score Troponin: Troponin T < 0.010 ng/mL (0.00-0.029) 11/22/19 21:19
[2019-11-25] MEDS: HEPARIN 5,000 UNIT/1 ML VIAL SUB-Q SCH ×3 (05:40→21:03)
[2019-11-25] MEDS: ASPIRIN 300 MG RECT SUPP PR SCH (10:09)
--- NOTE | 2019-11-25 19:07 | Progress Note ---
Assessment and Plan - Patient Problems (1) CVA (cerebral vascular accident) Current Visit: Yes Status: Acute Plan to address problem: Patient with CVA. On physical exam and CT scan head. Only 50% stenosis bilateral carotids. Patient will most likely need inpatient therapy if at all possible. Will level to confirm stroke findings on MRI to determine the extent of anticoagulation at this time. Patient is eating well. Still awaiting MRI. Case management call police to track down family. Mechanical soft. Continue physical therapy evaluation. Continue antiplatelet anti-lipid. (2) DVT prophylaxis Current Visit: Yes Status: Acute Plan to address problem: Continue current prophylaxis low gross Lovenox. (3) Full code status Current Visit: Yes Status: Acute Subjective Date of service: 11/25/19 Principal diagnosis: Stroke Interval history: Still unable to get in touch with family. MRI incomplete. Patient able to communicate today. He is eating at the bedside with advance diet. Objective - Constitutional Vitals: Vital Signs - 12hr 11/25/19 11/25/19 11/25/19 08:37 10:00 16:00 Temperature 98.7 F 99.7 F H Pulse Rate 64 74 63 Pulse Rate [ 67 From Monitor] Respiratory 18 16 16 Rate Blood Pressure 94/57 94/60 O2 Sat by Pulse 98 97 100 Oximetry General appearance: Present: no acute distress, well-nourished - EENT Eyes: PERRL, EOM intact ENT: hearing intact, clear oral mucosa Ears: bilateral: normal - Neck Neck: supple, normal ROM - Respiratory Respiratory effort: normal Respiratory: bilateral: CTA - Breasts Breasts: normal - Cardiovascular Rhythm: regular Heart Sounds: Present: S1 & S2. Absent: gallop, rub Extremities: pulses intact, No edema, normal color, Full ROM Extremity abnormal: other (Right-sided weakness aphasia has improved.) - Gastrointestinal General gastrointestinal: Present: soft, non-tender, non-distended, normal bowel sounds - Genitourinary Male genitourinary: normal - Integumentary Integumentary: clear, warm, dry - Musculoskeletal Musculoskeletal: 1, strength equal bilaterally - Neurologic Neurologic: moves all extremities - Psychiatric Psychiatric: other (Slow to respond but overall judgment intact. Flat mood. Patient does have problems with cognition.) - Labs CBC & Chem 7: 11/24/19 04:51 11/24/19 04:51 Labs: Abnormal lab results 11/24/19 11/25/19 11/25/19 Range/Units 20:20 08:49 13:21 POC Glucose 129 H 123 H 111 H (70-105) HEART Score - HEART Score Troponin: Troponin T < 0.010 ng/mL (0.00-0.029) 11/22/19 21:19
[2019-11-26] MEDS: HEPARIN 5,000 UNIT/1 ML VIAL SUB-Q SCH ×3 (05:19→22:02)
[2019-11-26] MEDS: ASPIRIN 300 MG RECT SUPP PR SCH (10:51)
--- NOTE | 2019-11-26 11:02 | Progress Note ---
Assessment and Plan Assessment and plan: Left MCA CVA. Carotid ultrasound reveals 50% stenosis bilaterally. Await MRI and MARTIN. Dilated cardiomyopathy. Echocardiogram revealed left ventricular size moderate to severely dilated. Mild to moderate concentric left ventricular hypertrophy. Global left ventricular systolic function severely decreased with EF of 25%. Consider cardiology consultation. MARTIN ordered. History Interval history: No new issues overnight. Hospitalist Physical - Constitutional Vitals: Temp Pulse Resp BP Pulse Ox 98.5 F 64 20 96/65 96 11/26/19 08:52 11/26/19 08:52 11/26/19 08:52 11/26/19 08:52 11/26/19 08:52 General appearance: Present: no acute distress, well-nourished - EENT Eyes: Present: PERRL, EOM intact ENT: hearing intact, clear oral mucosa, dentition normal - Neck Neck: Present: supple, normal ROM - Respiratory Respiratory effort: normal Respiratory: bilateral: CTA - Cardiovascular Rhythm: regular Heart Sounds: Present: S1 & S2. Absent: gallop, rub - Extremities Extremities: no ischemia, No edema, Full ROM - Abdominal General gastrointestinal: soft, non-tender, non-distended, normal bowel sounds - Integumentary Integumentary: Present: clear, warm, dry - Neurologic Neurologic: CNII-XII intact, moves all extremities HEART Score - HEART Score Troponin: Troponin T < 0.010 ng/mL (0.00-0.029) 11/22/19 21:19 Results - Labs CBC & Chem 7: 11/24/19 04:51 11/24/19 04:51 Labs: Laboratory Last Values WBC 6.3 K/mm3 (4.5-11.0) 11/24/19 04:51 RBC 4.52 M/mm3 (3.65-5.03) 11/24/19 04:51 Hgb 14.5 gm/dl (11.8-15.2) 11/24/19 04:51 Hct 41.9 % (35.5-45.6) 11/24/19 04:51 MCV 93 fl (84-94) 11/24/19 04:51 MCH 32 pg (28-32) 11/24/19 04:51 MCHC 35 % (32-34) H 11/24/19 04:51 RDW 13.9 % (13.2-15.2) 11/24/19 04:51 Plt Count 323 K/mm3 (140-440) 11/24/19 04:51 Lymph % (Auto) 44.0 % (13.4-35.0) H 11/24/19 04:51 Josephine % (Auto) 10.0 % (0.0-7.3) H 11/24/19 04:51 Eos % (Auto) 0.9 % (0.0-4.3) 11/24/19 04:51 Baso % (Auto) 1.2 % (0.0-1.8) 11/24/19 04:51 Lymph # 2.8 K/mm3 (1.2-5.4) 11/24/19 04:51 Josephine # 0.6 K/mm3 (0.0-0.8) 11/24/19 04:51 Eos # 0.1 K/mm3 (0.0-0.4) 11/24/19 04:51 Baso # 0.1 K/mm3 (0.0-0.1) 11/24/19 04:51 Seg Neutrophils % 43.9 % (40.0-70.0) 11/24/19 04:51 Seg Neutrophils # 2.8 K/mm3 (1.8-7.7) 11/24/19 04:51 PT 13.0 Sec. (12.2-14.9) 11/24/19 04:51 INR 0.97 (0.87-1.13) 11/24/19 04:51 APTT 25.6 Sec. (24.2-36.6) 11/22/19 21:19 Thrombin Time 16.5 Sec. (15.1-19.6) 11/22/19 21:19 Sodium 139 mmol/L (137-145) 11/24/19 04:51 Potassium 3.9 mmol/L (3.6-5.0) 11/24/19 04:51 Chloride 99.1 mmol/L (98-107) 11/24/19 04:51 Carbon Dioxide 26 mmol/L (22-30) 11/24/19 04:51 Anion Gap 18 mmol/L 11/24/19 04:51 BUN 13 mg/dL (9-20) 11/24/19 04:51 Creatinine 1.1 mg/dL (0.8-1.3) 11/24/19 04:51 Estimated GFR > 60 ml/min 11/24/19 04:51 BUN/Creatinine Ratio 12 % 11/24/19 04:51 Glucose 83 mg/dL (75-100) 11/24/19 04:51 POC Glucose 107 (70-105) H 11/26/19 07:49 Calcium 9.1 mg/dL (8.4-10.2) 11/24/19 04:51 Troponin T < 0.010 ng/mL (0.00-0.029) 11/22/19 21:19 Triglycerides 112 mg/dL (2-149) 11/24/19 04:51 Cholesterol 165 mg/dL (50-199) 11/24/19 04:51 LDL Cholesterol Direct 115 mg/dL (50-130) 11/24/19 04:51 HDL Cholesterol 40 mg/dL (40-59) 11/24/19 04:51 Cholesterol/HDL Ratio 4.12 % 11/24/19 04:51 - Diagnostic Impressions Diagnostic Impressions: Echocardiogram 11/23/19 01:33 Transthoracic Echocardiogram Indication: Stroke BP: 117/80 HR: 59 Conclusions *The left ventricular size is moderate to severely dilated. *Mild to moderate concentric left ventricular hypertrophy is observed. *Global left ventricular systolic function is severely decreased. *The estimated ejection fraction is 25-30%. *The left atrium is mildly dilated. *There is mild mitral regurgitation. *There is trace tricuspid regurgitation. *A patent foramen ovale is not demonstrated by agitated saline contrast. Findings Left Ventricle: The left ventricular size is moderate to severely dilated. Mild to moderate concentric left ventricular hypertrophy is observed. Global left ventricular systolic function is severely decreased. The estimated ejection fraction is 25-30%. Left Atrium: The left atrium is mildly dilated. Right Ventricle: The right ventricular cavity size is normal. Right Atrium: The right atrial cavity size is normal. A patent foramen ovale is not demonstrated by agitated saline contrast. Aortic Valve: The aortic valve is trileaflet. The aortic valve leaflets are moderately thickened. There is no evidence of aortic regurgitation. There is no evidence of aortic stenosis. Mitral Valve: The mitral valve leaflets are mildly thickened. There is mild mitral regurgitation. There is no evidence of mitral stenosis. Tricuspid Valve: There is trace tricuspid regurgitation. No pulmonary hypertension is noted. Pulmonic Valve: There is trace pulmonic regurgitation. Pericardium: There is no pericardial effusion. Aorta: There is no dilatation of the ascending aorta. There is no dilatation of the aortic root. Venous: The inferior vena cava appears normal in size. Contrast: Intravenous agitated saline contrast was used to assess intracardiac shunting. Measurements Chambers 2D Name Value Normal Range IVSd (2D) 0.84 cm (0.6 - 1.1) LVPWd (2D) 0.72 cm (0.6 - 1.1) LVIDd (2D) 5.18 cm (3.7 - 5.6) LVIDs (2D) 4.28 cm (2 - 3.8) LV FS (2D) 17.42 % - EF Teichholz (2D) 36.07 % - Ao root diameter (2D) 3 cm (2 - 3.7) Volumes/Mass Name Value Normal Range LA ESV SP 4CH (A/L) 40.41 ml - LA ESV SP 2CH (A/L) 49.7 ml - LA ESV BP (A/L) 46.36 ml - LA ESV BP (A/L) index 21.77 ml/m2 - LA ESV SP 4CH (MOD) 37.38 ml - LA ESV SP 2CH (MOD) 46.48 ml - LA ESV BP (MOD) 43.09 ml - LA ESV BP (MOD) index 20.23 ml/m2 - LV EDV SP 4CH (MOD) 165.74 ml - LV ESV SP 4CH (MOD) 106.68 ml - EF SP 4CH (MOD) 35.63 % - LV EDV SP 2CH (MOD) 175.78 ml - LV ESV SP 2CH (MOD) 119.93 ml - EF SP 2CH (MOD) 31.77 % - LV EDV BP 174.71 ml - LV ESV BP 114.64 ml - BP EF (MOD) 34.38 % - Diastolic/Systolic Function Name Value Normal Range MV E-wave Vmax 0.5 m/sec - MV deceleration time 236.5 msec - MV A-wave Vmax 0.69 m/sec - MV E:A ratio 0.72 ratio - Aortic Valve Name Value Normal Range AV Vmax 0.81 m/sec - AV VTI 15.84 cm - AV peak gradient 2.61 mmHg - AV mean gradient 1.42 mmHg - LVOT diameter 2.14 cm - LVOT Vmax 0.71 m/sec - LVOT VTI 14.04 cm - LVOT peak gradient 2 mmHg - LVOT mean gradient 1.12 mmHg - SV LVOT 50.55 ml - ISAIAS (continuity Vmax) 3.15 cm2 - ISAIAS (continuity VTI) 3.19 cm2 - Ascending Ao 2.98 cm - Mitral Valve Name Value Normal Range MV Vmax 0.6 m/sec - MV VTI 19.86 cm - MV peak gradient 1.46 mmHg - MV mean gradient 0.56 mmHg - MV PHT 58.46 msec - MR Vmax 3.91 m/sec - MVA (PHT) 3.76 cm2 - MVA (continuity VTI) 2.54 cm2 - Tricuspid Valve Name Value Normal Range TR Vmax 2.07 m/sec - TR peak gradient 17 mmHg - RAP 3 mmHg - RVSP 20 mmHg - IVC diameter 0.98 cm (1.2 - 2.3) Pulmonic Valve/Qp:Qs Name Value Normal Range PV Vmax 0.73 m/sec - PV VTI 13.32 cm - PV peak gradient 2.15 mmHg - PV mean gradient 1.2 mmHg - RVOT Vmax 0.66 m/sec - RVOT VTI 11.66 cm - RVOT peak gradient 1.77 mmHg - Mejia/IV: Voiding Method Urinal IV Catheter Type [Right INT / Saline Lock Forearm] IV Catheter Type [Left Peripheral IV Antecubital] Active Medications - Current Medications Current Medications: Generic Name Dose Route Start Last Admin Trade Name Freq PRN Reason Stop Dose Admin Acetaminophen 650 mg 11/23/19 01:28 Tylenol PO Q4H PRN Pain, Mild (1-3) Aspirin 300 mg 11/23/19 10:00 11/26/19 10:51 Aspirin LA 300 mg QDAY YELENA Administration Atorvastatin Calcium 40 mg 11/23/19 22:00 11/25/19 21:03 Lipitor PO 40 mg QHS YELENA Administration Bisacodyl 10 mg 11/23/19 01:28 Dulcolax LA QDAY PRN Constipation Heparin Sodium (Porcine) 5,000 unit 11/23/19 08:00 11/26/19 05:19 Heparin SUB-Q 5,000 unit Q8HR YELENA Administration Magnesium Hydroxide 30 ml 11/23/19 01:28 Milk Of Magnesia PO Q4H PRN Constipation Metoclopramide HCl 10 mg 11/23/19 01:28 Reglan PO Q6H PRN Nausea And Vomiting Morphine Sulfate 2 mg 11/23/19 01:28 Morphine IV Q4H PRN Pain, Moderate (4-6) Ondansetron HCl 4 mg 11/23/19 01:28 Zofran IV Q8H PRN Nausea And Vomiting Promethazine HCl 25 mg 11/23/19 01:28 Phenergan LA Q6H PRN Nausea And Vomiting Sodium Chloride 10 ml 11/23/19 10:00 11/26/19 10:51 Sodium Chloride Flush Syringe 10 Ml IV 10 ml BID YELENA Administration Sodium Chloride 10 ml 11/23/19 01:28 Sodium Chloride Flush Syringe 10 Ml IV PRN PRN LINE FLUSH Nutrition/Malnutrition Assess - Dietary Evaluation Nutrition/Malnutrition Findings: Nutrition Notes Start: 11/23/19 09:15 Freq: Status: Active Protocol: Document 11/25/19 16:11 MALIK (Rec: 11/25/19 16:17 [email or web address]) Nutrition Notes Initial or Follow up Brief Note Other Pertinent Diagnosis CVA Current Diet Mech soft with chopped meats with nectar-thick liquids Labs/Tests reviewed Pertinent Medications reviewed Height 6 ft Weight 90.7 kg [place] Body Weight (kg) 80.90 BMI 27.1 Weight Status Overweight Subjective/Other Information Diet advanced last pm. Pt not appropriate for diet education at this time. Per RN, pt is alert and oriented x 1. BP has been <140/90 since admission; BG has been <150. He consumed 75% dinner last pm. Burn Absent Trauma Absent Current % PO Good (75-100%) Minimum of two criteria No Is patient on ventilator? No Is Patient Ambulatory and/or Out of Bed No REE-([facility]-confined to bed) 0805.168 Calculation Used for Recommendations [facility] Additional Notes Pro needs 0.8-1g/k-91g/ day Fluid needs 1ml/kcal Nutrition Intervention Anticipated Discharge Needs: None identified at this time Follow-Up By: 11/30/19 Additional Comments F/U: intakes
--- NOTE | 2019-11-26 11:21 | Consultation ---
History of Present Illness Consult date: 11/26/19 Consult reason: other (Cardiomyopathy) History of present illness: This is a 59-year old M who presented with expressive aphasia, right side weak ness, admitted with acute CVA. Further workup with an echocardiogram revealed a moderate to severe left ventricular dysfunction, ejection fraction 25-30%. Bubble study is negative. Neurology ordered patient to undergo a MARTIN for rule out cardioembolic source but we were unable to obtain consent therefore was canceled. A cardiac consultation has been requested for findings of dilated cardiomyopathy on his echo. The duration of this cardiomyopathy is uncertain. Patient is alert however confusion is present and he is unable to provide prior medical history. can worker has been unable to locate next of kin. No distress noted. No reports of shortness of breath or chest pain. Right side weakness has resolved. His presenting ECG is sinus rhythm with LVH. Past History Past Medical History: other (Unknown) Past Surgical History: Other ( unknown) Social history: other ( unknown) Family history: other ( unknown) Medications and Allergies Allergies Allergy/AdvReac Type Severity Reaction Status Date / Time Unable to Assess Allergy Verified 11/23/19 00:04 Home Medications Medication Instructions Recorded Confirmed Last Taken Type Unobtainable 11/26/19 11/26/19 Unknown History Active Meds: Active Medications Acetaminophen (Tylenol) 650 mg PO Q4H PRN PRN Reason: Pain, Mild (1-3) Aspirin (Aspirin) 300 mg [place] QDAY [facility] Last Admin: 11/26/19 10:51 Dose: 300 mg Documented by: Atorvastatin Calcium (Lipitor) 40 mg PO QHS [facility] Last Admin: 11/25/19 21:03 Dose: 40 mg Documented by: Bisacodyl (Dulcolax) 10 mg [place] QDAY PRN PRN Reason: Constipation Heparin Sodium (Porcine) (Heparin) 5,000 unit SUB-Q Q8HR [facility] Last Admin: 11/26/19 05:19 Dose: 5,000 unit Documented by: Magnesium Hydroxide (Milk Of Magnesia) 30 ml PO Q4H PRN PRN Reason: Constipation Metoclopramide HCl (Reglan) 10 mg PO Q6H PRN PRN Reason: Nausea And Vomiting Morphine Sulfate (Morphine) 2 mg IV Q4H PRN PRN Reason: Pain, Moderate (4-6) Ondansetron HCl (Zofran) 4 mg IV Q8H PRN PRN Reason: Nausea And Vomiting Promethazine HCl (Phenergan) 25 mg [place] Q6H PRN PRN Reason: Nausea And Vomiting Sodium Chloride (Sodium Chloride Flush Syringe 10 Ml) 10 ml IV BID YELENA Last Admin: 11/26/19 10:51 Dose: 10 ml Documented by: Sodium Chloride (Sodium Chloride Flush Syringe 10 Ml) 10 ml IV PRN PRN PRN Reason: LINE FLUSH Physical Examination Vital Signs Pulse Resp Pulse Ox 66 18 98 11/22/19 21:05 11/22/19 21:05 11/22/19 21:05 General appearance: no acute distress HEENT: Positive: PERRL Neck: Positive: trachea midline Cardiac: Positive: Reg Rate and Rhythm Lungs: Positive: Normal Breath Sounds Results 11/24/19 04:51 11/24/19 04:51 Assessment and Plan Dilated Cardiomyopathy, uncertain duration pt unable to provide hx due to confusion Acute CVA Recommendations: Optimal medical therapy for dilated cardiomyopathy as tolerated. We will follow conservatively.
--- NOTE | 2019-11-26 15:45 | Progress Note ---
Assessment and Plan rule out left frontal stroke. unkown risk factor. cta- left mca high grade stenosis. pt. was seen by tele neuro in ED. time of onset unknown. cta- neck- unremarkable. eho- left ventricle dilated- ef- 25-30%. plan- cont. asa 325 mg q day and lipitor 80 mg q hs. 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 thanks. Subjective Principal diagnosis: Stroke Objective - Vital Signs Vital signs: Vital Signs - 12hr 11/26/19 11/26/19 08:52 10:00 Temperature 98.5 F Pulse Rate 64 Respiratory 20 16 Rate Blood Pressure 96/65 O2 Sat by Pulse 96 96 Oximetry - Lab 11/24/19 04:51 11/24/19 04:51 Most recent lab results Calcium 9.1 mg/dL (8.4-10.2) 11/24/19 04:51 Medications & Allergies - Medications Allergies/Adverse Reactions: Allergies Unable to Assess Allergy (Verified 11/23/19 00:04) . Home Medications: Home Medications Medication Instructions Recorded Confirmed Last Taken Type Unobtainable 11/26/19 11/26/19 Unknown History Active Medications: Generic Name Dose Route Start Last Admin Trade Name Freq PRN Reason Stop Dose Admin Acetaminophen 650 mg 11/23/19 01:28 Tylenol PO Q4H PRN Pain, Mild (1-3) Aspirin 300 mg 11/23/19 10:00 11/26/19 10:51 Aspirin [place] 300 mg QDAY YELENA Administration Atorvastatin Calcium 40 mg 11/23/19 22:00 11/25/19 21:03 Lipitor PO 40 mg QHS YELENA Administration Bisacodyl 10 mg 11/23/19 01:28 Dulcolax [place] QDAY PRN Constipation Carvedilol 3.125 mg 11/26/19 22:00 Coreg PO BID YELENA Heparin Sodium (Porcine) 5,000 unit 11/23/19 08:00 11/26/19 14:25 Heparin SUB-Q 5,000 unit Q8HR YELENA Administration Lisinopril 2.5 mg 11/27/19 10:00 Zestril PO QDAY YELENA Magnesium Hydroxide 30 ml 11/23/19 01:28 Milk Of Magnesia PO Q4H PRN Constipation Metoclopramide HCl 10 mg 11/23/19 01:28 Reglan PO Q6H PRN Nausea And Vomiting Morphine Sulfate 2 mg 11/23/19 01:28 Morphine IV Q4H PRN Pain, Moderate (4-6) Ondansetron HCl 4 mg 11/23/19 01:28 Zofran IV Q8H PRN Nausea And Vomiting Promethazine HCl 25 mg 11/23/19 01:28 Phenergan [place] Q6H PRN Nausea And Vomiting Sodium Chloride 10 ml 11/23/19 10:00 11/26/19 10:51 Sodium Chloride Flush Syringe 10 Ml IV 10 ml BID YELENA Administration Sodium Chloride 10 ml 11/23/19 01:28 Sodium Chloride Flush Syringe 10 Ml IV PRN PRN LINE FLUSH
--- NOTE | 2019-11-26 18:30 | Progress Note ---
Assessment and Plan rule out left frontal stroke. unkown risk factor. cta- left mca high grade stenosis. pt. was seen by tele neuro in ED. time of onset unknown. cta- neck- unremarkable. eho- left ventricle dilated- ef- 25-30%. plan- cont. asa 325 mg q day and lipitor 80 mg q hs. 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 thanks. Subjective Principal diagnosis: Stroke Interval history: alert today. better. Objective - Exam Narrative Exam: Neurology examination: MS- alert awake. he can tell his name. lang- naming impaired- also repetition much better today. cn- eomi- possible right central facial paresis. m- no right arm drift today and also right leg drift. Laboratory Results - last 72 hr 11/22/19 11/22/19 11/22/19 21:19 21:19 21:19 WBC 8.9 RBC 4.07 Hgb 13.3 Hct 38.7 MCV 95 H MCH 33 H MCHC 35 H RDW 13.9 Plt Count 299 Lymph % (Auto) 32.6 Falls % (Auto) 10.1 H Eos % (Auto) 0.6 Baso % (Auto) 0.7 Lymph # 2.9 Falls # 0.9 H Eos # 0.0 Baso # 0.1 Seg Neutrophils % 56.0 Seg Neutrophils # 5.0 PT 13.7 INR 1.04 APTT 25.6 Thrombin Time Sodium 134 L Potassium 4.6 Chloride 100.4 Carbon Dioxide 24 Anion Gap 14 BUN 13 Creatinine 1.2 Estimated GFR > 60 BUN/Creatinine Ratio 11 Glucose 108 H Calcium 9.0 Troponin T < 0.010 11/22/19 21:19 WBC RBC Hgb Hct MCV MCH MCHC RDW Plt Count Lymph % (Auto) Falls % (Auto) Eos % (Auto) Baso % (Auto) Lymph # Falls # Eos # Baso # Seg Neutrophils % Seg Neutrophils # PT INR APTT Thrombin Time 16.5 Sodium Potassium Chloride Carbon Dioxide Anion Gap BUN Creatinine Estimated GFR BUN/Creatinine Ratio Glucose Calcium Troponin T - Vital Sign Vital Signs - 12hr 11/26/19 11/26/19 11/26/19 08:52 10:00 16:02 Temperature 98.5 F 98.7 F Pulse Rate 64 63 62 Respiratory 20 16 18 Rate Blood Pressure 96/65 102/63 O2 Sat by Pulse 96 96 97 Oximetry 11/26/19 17:53 Temperature Pulse Rate Respiratory Rate Blood Pressure O2 Sat by Pulse 97 Oximetry - Laboratory Findings CBC and BMP: 11/24/19 04:51 11/24/19 04:51 Abnormal Lab Findings: Abnormal Labs 11/22/19 11/22/19 11/24/19 21:19 21:19 04:51 MCV 95 H MCH 33 H MCHC 35 H 35 H Lymph % (Auto) 44.0 H Falls % (Auto) 10.1 H 10.0 H Falls # 0.9 H Sodium 134 L Glucose 108 H POC Glucose 11/24/19 11/25/19 11/25/19 20:20 08:49 13:21 MCV MCH MCHC Lymph % (Auto) Falls % (Auto) Falls # Sodium Glucose POC Glucose 129 H 123 H 111 H 11/26/19 11/26/19 07:49 11:50 MCV MCH MCHC Lymph % (Auto) Falls % (Auto) Falls # Sodium Glucose POC Glucose 107 H 133 H
[2019-11-26] MEDS: carvediloL 3.125 MG TAB PO SCH (22:02)
[2019-11-27] MEDS: HEPARIN 5,000 UNIT/1 ML VIAL SUB-Q SCH ×3 (05:07→21:44)
[2019-11-27] MEDS: LISINOPRIL 5 MG TAB PO SCH (09:54)
[2019-11-27] MEDS: ASPIRIN 300 MG RECT SUPP PR SCH (09:55)
[2019-11-27] MEDS: carvediloL 3.125 MG TAB PO SCH ×2 (09:55→21:43)
--- NOTE | 2019-11-27 10:56 | Progress Note ---
Assessment and Plan - Patient Problems (1) Cardiomyopathy Current Visit: Yes Status: Acute Subjective Date of service: 11/27/19 Principal diagnosis: Stroke Interval history: NO C/O Objective Vital Signs Temp Pulse Pulse Resp BP BP Pulse Ox 11/27/19 09:59 97.8 F 65 18 101/67 98 11/27/19 09:55 67 101/65 11/27/19 09:54 67 101/65 11/27/19 03:56 98.3 F 65 18 96/58 98 11/26/19 22:02 66 100/63 11/26/19 22:01 61 98 11/26/19 22:00 64 66 18 97 11/26/19 17:53 97 11/26/19 16:02 98.7 F 62 18 102/63 97 - Physical Examination General: Other (CONFUSED) HEENT: Positive: PERRL Neck: Positive: trachea midline Cardiac: Positive: Reg Rate and Rhythm Lungs: Positive: clear to auscultation
--- NOTE | 2019-11-27 11:08 | Progress Note ---
Assessment and Plan Assessment and plan: Left MCA CVA. Carotid ultrasound reveals 50% stenosis bilaterally. Await MRI and MARTIN. Dilated cardiomyopathy. Echocardiogram revealed left ventricular size moderate to severely dilated. Mild to moderate concentric left ventricular hypertrophy. Global left ventricular systolic function severely decreased with EF of 25%. Cardiology following; continue Toprol-XL and low-dose lisinopril. Consider MARTIN for Friday per cardiology recommendations. History Interval history: No new issues overnight. Hospitalist Physical - Constitutional Vitals: Temp Pulse Resp BP Pulse Ox 97.8 F 65 18 101/67 98 11/27/19 09:59 11/27/19 09:59 11/27/19 09:59 11/27/19 09:59 11/27/19 09:59 General appearance: Present: no acute distress - EENT Eyes: Present: PERRL, EOM intact ENT: hearing intact, clear oral mucosa, dentition normal - Neck Neck: Present: supple, normal ROM - Respiratory Respiratory effort: normal Respiratory: bilateral: CTA - Cardiovascular Rhythm: regular Heart Sounds: Present: S1 & S2. Absent: gallop, rub - Extremities Extremities: no ischemia, No edema, Full ROM - Abdominal General gastrointestinal: soft, non-tender, non-distended, normal bowel sounds - Integumentary Integumentary: Present: clear, warm, dry - Neurologic Neurologic: CNII-XII intact, moves all extremities HEART Score - HEART Score Troponin: Troponin T < 0.010 ng/mL (0.00-0.029) 11/22/19 21:19 Results - Labs CBC & Chem 7: 11/24/19 04:51 11/24/19 04:51 Labs: Laboratory Last Values WBC 6.3 K/mm3 (4.5-11.0) 11/24/19 04:51 RBC 4.52 M/mm3 (3.65-5.03) 11/24/19 04:51 Hgb 14.5 gm/dl (11.8-15.2) 11/24/19 04:51 Hct 41.9 % (35.5-45.6) 11/24/19 04:51 MCV 93 fl (84-94) 11/24/19 04:51 MCH 32 pg (28-32) 11/24/19 04:51 MCHC 35 % (32-34) H 11/24/19 04:51 RDW 13.9 % (13.2-15.2) 11/24/19 04:51 Plt Count 323 K/mm3 (140-440) 11/24/19 04:51 Lymph % (Auto) 44.0 % (13.4-35.0) H 11/24/19 04:51 [place] % (Auto) 10.0 % (0.0-7.3) H 11/24/19 04:51 Eos % (Auto) 0.9 % (0.0-4.3) 11/24/19 04:51 Baso % (Auto) 1.2 % (0.0-1.8) 11/24/19 04:51 Lymph # 2.8 K/mm3 (1.2-5.4) 11/24/19 04:51 [place] # 0.6 K/mm3 (0.0-0.8) 11/24/19 04:51 Eos # 0.1 K/mm3 (0.0-0.4) 11/24/19 04:51 Baso # 0.1 K/mm3 (0.0-0.1) 11/24/19 04:51 Seg Neutrophils % 43.9 % (40.0-70.0) 11/24/19 04:51 Seg Neutrophils # 2.8 K/mm3 (1.8-7.7) 11/24/19 04:51 PT 13.0 Sec. (12.2-14.9) 11/24/19 04:51 INR 0.97 (0.87-1.13) 11/24/19 04:51 APTT 25.6 Sec. (24.2-36.6) 11/22/19 21:19 Thrombin Time 16.5 Sec. (15.1-19.6) 11/22/19 21:19 Sodium 139 mmol/L (137-145) 11/24/19 04:51 Potassium 3.9 mmol/L (3.6-5.0) 11/24/19 04:51 Chloride 99.1 mmol/L (98-107) 11/24/19 04:51 Carbon Dioxide 26 mmol/L (22-30) 11/24/19 04:51 Anion Gap 18 mmol/L 11/24/19 04:51 BUN 13 mg/dL (9-20) 11/24/19 04:51 Creatinine 1.1 mg/dL (0.8-1.3) 11/24/19 04:51 Estimated GFR > 60 ml/min 11/24/19 04:51 BUN/Creatinine Ratio 12 % 11/24/19 04:51 Glucose 83 mg/dL (75-100) 11/24/19 04:51 POC Glucose 98 (70-105) 11/26/19 16:25 Calcium 9.1 mg/dL (8.4-10.2) 11/24/19 04:51 Troponin T < 0.010 ng/mL (0.00-0.029) 11/22/19 21:19 Triglycerides 112 mg/dL (2-149) 11/24/19 04:51 Cholesterol 165 mg/dL (50-199) 11/24/19 04:51 LDL Cholesterol Direct 115 mg/dL (50-130) 11/24/19 04:51 HDL Cholesterol 40 mg/dL (40-59) 11/24/19 04:51 Cholesterol/HDL Ratio 4.12 % 11/24/19 04:51 - Diagnostic Impressions Diagnostic Impressions: Echocardiogram 11/23/19 01:33 Transthoracic Echocardiogram Indication: Stroke BP: 117/80 HR: 59 Conclusions *The left ventricular size is moderate to severely dilated. *Mild to moderate concentric left ventricular hypertrophy is observed. *Global left ventricular systolic function is severely decreased. *The estimated ejection fraction is 25-30%. *The left atrium is mildly dilated. *There is mild mitral regurgitation. *There is trace tricuspid regurgitation. *A patent foramen ovale is not demonstrated by agitated saline contrast. Findings Left Ventricle: The left ventricular size is moderate to severely dilated. Mild to moderate concentric left ventricular hypertrophy is observed. Global left ventricular systolic function is severely decreased. The estimated ejection fraction is 25-30%. Left Atrium: The left atrium is mildly dilated. Right Ventricle: The right ventricular cavity size is normal. Right Atrium: The right atrial cavity size is normal. A patent foramen ovale is not demonstrated by agitated saline contrast. Aortic Valve: The aortic valve is trileaflet. The aortic valve leaflets are moderately thickened. There is no evidence of aortic regurgitation. There is no evidence of aortic stenosis. Mitral Valve: The mitral valve leaflets are mildly thickened. There is mild mitral regurgitation. There is no evidence of mitral stenosis. Tricuspid Valve: There is trace tricuspid regurgitation. No pulmonary hypertension is noted. Pulmonic Valve: There is trace pulmonic regurgitation. Pericardium: There is no pericardial effusion. Aorta: There is no dilatation of the ascending aorta. There is no dilatation of the aortic root. Venous: The inferior vena cava appears normal in size. Contrast: Intravenous agitated saline contrast was used to assess intracardiac shunting. Measurements Chambers 2D Name Value Normal Range IVSd (2D) 0.84 cm (0.6 - 1.1) LVPWd (2D) 0.72 cm (0.6 - 1.1) LVIDd (2D) 5.18 cm (3.7 - 5.6) LVIDs (2D) 4.28 cm (2 - 3.8) LV FS (2D) 17.42 % - EF Teichholz (2D) 36.07 % - Ao root diameter (2D) 3 cm (2 - 3.7) Volumes/Mass Name Value Normal Range LA ESV SP 4CH (A/L) 40.41 ml - LA ESV SP 2CH (A/L) 49.7 ml - LA ESV BP (A/L) 46.36 ml - LA ESV BP (A/L) index 21.77 ml/m2 - LA ESV SP 4CH (MOD) 37.38 ml - LA ESV SP 2CH (MOD) 46.48 ml - LA ESV BP (MOD) 43.09 ml - LA ESV BP (MOD) index 20.23 ml/m2 - LV EDV SP 4CH (MOD) 165.74 ml - LV ESV SP 4CH (MOD) 106.68 ml - EF SP 4CH (MOD) 35.63 % - LV EDV SP 2CH (MOD) 175.78 ml - LV ESV SP 2CH (MOD) 119.93 ml - EF SP 2CH (MOD) 31.77 % - LV EDV BP 174.71 ml - LV ESV BP 114.64 ml - BP EF (MOD) 34.38 % - Diastolic/Systolic Function Name Value Normal Range MV E-wave Vmax 0.5 m/sec - MV deceleration time 236.5 msec - MV A-wave Vmax 0.69 m/sec - MV E:A ratio 0.72 ratio - Aortic Valve Name Value Normal Range AV Vmax 0.81 m/sec - AV VTI 15.84 cm - AV peak gradient 2.61 mmHg - AV mean gradient 1.42 mmHg - LVOT diameter 2.14 cm - LVOT Vmax 0.71 m/sec - LVOT VTI 14.04 cm - LVOT peak gradient 2 mmHg - LVOT mean gradient 1.12 mmHg - SV LVOT 50.55 ml - ISAIAS (continuity Vmax) 3.15 cm2 - ISAIAS (continuity VTI) 3.19 cm2 - Ascending Ao 2.98 cm - Mitral Valve Name Value Normal Range MV Vmax 0.6 m/sec - MV VTI 19.86 cm - MV peak gradient 1.46 mmHg - MV mean gradient 0.56 mmHg - MV PHT 58.46 msec - MR Vmax 3.91 m/sec - MVA (PHT) 3.76 cm2 - MVA (continuity VTI) 2.54 cm2 - Tricuspid Valve Name Value Normal Range TR Vmax 2.07 m/sec - TR peak gradient 17 mmHg - RAP 3 mmHg - RVSP 20 mmHg - IVC diameter 0.98 cm (1.2 - 2.3) Pulmonic Valve/Qp:Qs Name Value Normal Range PV Vmax 0.73 m/sec - PV VTI 13.32 cm - PV peak gradient 2.15 mmHg - PV mean gradient 1.2 mmHg - RVOT Vmax 0.66 m/sec - RVOT VTI 11.66 cm - RVOT peak gradient 1.77 mmHg - Mejia/IV: Voiding Method Urinal IV Catheter Type [Right INT / Saline Lock Forearm] IV Catheter Type [Left Peripheral IV Antecubital] Active Medications - Current Medications Current Medications: Generic Name Dose Route Start Last Admin Trade Name Freq PRN Reason Stop Dose Admin Acetaminophen 650 mg 11/23/19 01:28 Tylenol PO Q4H PRN Pain, Mild (1-3) Aspirin 300 mg 11/23/19 10:00 11/27/19 09:55 Aspirin SD 300 mg QDAY YELENA Administration Atorvastatin Calcium 40 mg 11/23/19 22:00 11/26/19 22:02 Lipitor PO 40 mg QHS YELENA Administration Bisacodyl 10 mg 11/23/19 01:28 Dulcolax SD QDAY PRN Constipation Carvedilol 3.125 mg 11/26/19 22:00 11/27/19 09:55 Coreg PO 3.125 mg BID YELENA Administration Heparin Sodium (Porcine) 5,000 unit 11/23/19 08:00 11/27/19 05:07 Heparin SUB-Q 5,000 unit Q8HR YELENA Administration Lisinopril 2.5 mg 11/27/19 10:00 11/27/19 09:54 Zestril PO 2.5 mg QDAY YELENA Administration Magnesium Hydroxide 30 ml 11/23/19 01:28 Milk Of Magnesia PO Q4H PRN Constipation Metoclopramide HCl 10 mg 11/23/19 01:28 Reglan PO Q6H PRN Nausea And Vomiting Morphine Sulfate 2 mg 11/23/19 01:28 Morphine IV Q4H PRN Pain, Moderate (4-6) Ondansetron HCl 4 mg 11/23/19 01:28 Zofran IV Q8H PRN Nausea And Vomiting Promethazine HCl 25 mg 11/23/19 01:28 Phenergan SD Q6H PRN Nausea And Vomiting Sodium Chloride 10 ml 11/23/19 10:00 11/27/19 09:54 Sodium Chloride Flush Syringe 10 Ml IV 10 ml BID YELENA Administration Sodium Chloride 10 ml 11/23/19 01:28 Sodium Chloride Flush Syringe 10 Ml IV PRN PRN LINE FLUSH Nutrition/Malnutrition Assess - Dietary Evaluation Nutrition/Malnutrition Findings: Nutrition Notes Start: 11/23/19 09:15 Freq: Status: Active Protocol: Document 11/25/19 16:11 [facility] (Rec: 11/25/19 16:17 [facility] [email or web address]) Nutrition Notes Initial or Follow up Brief Note Other Pertinent Diagnosis CVA Current Diet [facility] soft with chopped meats with nectar-thick liquids Labs/Tests reviewed Pertinent Medications reviewed Height 6 ft Weight 90.7 kg [place] Body Weight (kg) 80.90 BMI 27.1 Weight Status Overweight Subjective/Other Information Diet advanced last pm. Pt not appropriate for diet education at this time. Per RN, pt is alert and oriented x 1. BP has been <140/90 since admission; BG has been <150. He consumed 75% dinner last pm. Burn Absent Trauma Absent Current % PO Good (75-100%) Minimum of two criteria No Is patient on ventilator? No Is Patient Ambulatory and/or Out of Bed No REE-([facility]-confined to bed) 9572.476 Calculation Used for Recommendations [facility] Additional Notes Pro needs 0.8-1g/k-91g/ day Fluid needs 1ml/kcal Nutrition Intervention Anticipated Discharge Needs: None identified at this time Follow-Up By: 11/30/19 Additional Comments F/U: intakes
[2019-11-28] MEDS: HEPARIN 5,000 UNIT/1 ML VIAL SUB-Q SCH ×3 (05:51→21:03)
--- NOTE | 2019-11-28 09:42 | Progress Note ---
Assessment and Plan Assessment and plan: Left MCA CVA. Carotid ultrasound reveals 50% stenosis bilaterally. Await MRI and MARTIN. Dilated cardiomyopathy. Echocardiogram revealed left ventricular size moderate to severely dilated. Mild to moderate concentric left ventricular hypertrophy. Global left ventricular systolic function severely decreased with EF of 25%. Cardiology following; continue Toprol-XL and low-dose lisinopril. Consider MARTIN for Friday per cardiology recommendations. 11/28/2019. Await MRI and MARTIN. Continue Toprol and lisinopril. Awaiting placement. History Interval history: No new issues overnight. Hospitalist Physical - Constitutional Vitals: Temp Pulse Resp BP Pulse Ox 98.2 F 57 L 18 94/54 96 11/28/19 05:04 11/28/19 05:04 11/28/19 05:04 11/28/19 05:04 11/28/19 04:50 General appearance: Present: no acute distress - EENT Eyes: Present: PERRL, EOM intact ENT: hearing intact, clear oral mucosa, dentition normal - Neck Neck: Present: supple, normal ROM - Respiratory Respiratory effort: normal Respiratory: bilateral: CTA - Cardiovascular Rhythm: regular Heart Sounds: Present: S1 & S2. Absent: gallop, rub - Extremities Extremities: no ischemia, No edema, Full ROM - Abdominal General gastrointestinal: soft, non-tender, non-distended, normal bowel sounds - Integumentary Integumentary: Present: clear, warm, dry - Neurologic Neurologic: CNII-XII intact, moves all extremities HEART Score - HEART Score Troponin: Troponin T < 0.010 ng/mL (0.00-0.029) 11/22/19 21:19 Results - Labs CBC & Chem 7: 11/24/19 04:51 11/24/19 04:51 Labs: Laboratory Last Values WBC 6.3 K/mm3 (4.5-11.0) 11/24/19 04:51 RBC 4.52 M/mm3 (3.65-5.03) 11/24/19 04:51 Hgb 14.5 gm/dl (11.8-15.2) 11/24/19 04:51 Hct 41.9 % (35.5-45.6) 11/24/19 04:51 MCV 93 fl (84-94) 11/24/19 04:51 MCH 32 pg (28-32) 11/24/19 04:51 MCHC 35 % (32-34) H 11/24/19 04:51 RDW 13.9 % (13.2-15.2) 11/24/19 04:51 Plt Count 323 K/mm3 (140-440) 11/24/19 04:51 Lymph % (Auto) 44.0 % (13.4-35.0) H 11/24/19 04:51 [place] % (Auto) 10.0 % (0.0-7.3) H 11/24/19 04:51 Eos % (Auto) 0.9 % (0.0-4.3) 11/24/19 04:51 Baso % (Auto) 1.2 % (0.0-1.8) 11/24/19 04:51 Lymph # 2.8 K/mm3 (1.2-5.4) 11/24/19 04:51 [place] # 0.6 K/mm3 (0.0-0.8) 11/24/19 04:51 Eos # 0.1 K/mm3 (0.0-0.4) 11/24/19 04:51 Baso # 0.1 K/mm3 (0.0-0.1) 11/24/19 04:51 Seg Neutrophils % 43.9 % (40.0-70.0) 11/24/19 04:51 Seg Neutrophils # 2.8 K/mm3 (1.8-7.7) 11/24/19 04:51 PT 13.0 Sec. (12.2-14.9) 11/24/19 04:51 INR 0.97 (0.87-1.13) 11/24/19 04:51 APTT 25.6 Sec. (24.2-36.6) 11/22/19 21:19 Thrombin Time 16.5 Sec. (15.1-19.6) 11/22/19 21:19 Sodium 139 mmol/L (137-145) 11/24/19 04:51 Potassium 3.9 mmol/L (3.6-5.0) 11/24/19 04:51 Chloride 99.1 mmol/L (98-107) 11/24/19 04:51 Carbon Dioxide 26 mmol/L (22-30) 11/24/19 04:51 Anion Gap 18 mmol/L 11/24/19 04:51 BUN 13 mg/dL (9-20) 11/24/19 04:51 Creatinine 1.1 mg/dL (0.8-1.3) 11/24/19 04:51 Estimated GFR > 60 ml/min 11/24/19 04:51 BUN/Creatinine Ratio 12 % 11/24/19 04:51 Glucose 83 mg/dL (75-100) 11/24/19 04:51 POC Glucose 98 (70-105) 11/26/19 16:25 Calcium 9.1 mg/dL (8.4-10.2) 11/24/19 04:51 Troponin T < 0.010 ng/mL (0.00-0.029) 11/22/19 21:19 Triglycerides 112 mg/dL (2-149) 11/24/19 04:51 Cholesterol 165 mg/dL (50-199) 11/24/19 04:51 LDL Cholesterol Direct 115 mg/dL (50-130) 11/24/19 04:51 HDL Cholesterol 40 mg/dL (40-59) 11/24/19 04:51 Cholesterol/HDL Ratio 4.12 % 11/24/19 04:51 - Diagnostic Impressions Diagnostic Impressions: Echocardiogram 11/23/19 01:33 Transthoracic Echocardiogram Indication: Stroke BP: 117/80 HR: 59 Conclusions *The left ventricular size is moderate to severely dilated. *Mild to moderate concentric left ventricular hypertrophy is observed. *Global left ventricular systolic function is severely decreased. *The estimated ejection fraction is 25-30%. *The left atrium is mildly dilated. *There is mild mitral regurgitation. *There is trace tricuspid regurgitation. *A patent foramen ovale is not demonstrated by agitated saline contrast. Findings Left Ventricle: The left ventricular size is moderate to severely dilated. Mild to moderate concentric left ventricular hypertrophy is observed. Global left ventricular systolic function is severely decreased. The estimated ejection fraction is 25-30%. Left Atrium: The left atrium is mildly dilated. Right Ventricle: The right ventricular cavity size is normal. Right Atrium: The right atrial cavity size is normal. A patent foramen ovale is not demonstrated by agitated saline contrast. Aortic Valve: The aortic valve is trileaflet. The aortic valve leaflets are moderately thickened. There is no evidence of aortic regurgitation. There is no evidence of aortic stenosis. Mitral Valve: The mitral valve leaflets are mildly thickened. There is mild mitral regurgitation. There is no evidence of mitral stenosis. Tricuspid Valve: There is trace tricuspid regurgitation. No pulmonary hypertension is noted. Pulmonic Valve: There is trace pulmonic regurgitation. Pericardium: There is no pericardial effusion. Aorta: There is no dilatation of the ascending aorta. There is no dilatation of the aortic root. Venous: The inferior vena cava appears normal in size. Contrast: Intravenous agitated saline contrast was used to assess intracardiac shunting. Measurements Chambers 2D Name Value Normal Range IVSd (2D) 0.84 cm (0.6 - 1.1) LVPWd (2D) 0.72 cm (0.6 - 1.1) LVIDd (2D) 5.18 cm (3.7 - 5.6) LVIDs (2D) 4.28 cm (2 - 3.8) LV FS (2D) 17.42 % - EF Teichholz (2D) 36.07 % - Ao root diameter (2D) 3 cm (2 - 3.7) Volumes/Mass Name Value Normal Range LA ESV SP 4CH (A/L) 40.41 ml - LA ESV SP 2CH (A/L) 49.7 ml - LA ESV BP (A/L) 46.36 ml - LA ESV BP (A/L) index 21.77 ml/m2 - LA ESV SP 4CH (MOD) 37.38 ml - LA ESV SP 2CH (MOD) 46.48 ml - LA ESV BP (MOD) 43.09 ml - LA ESV BP (MOD) index 20.23 ml/m2 - LV EDV SP 4CH (MOD) 165.74 ml - LV ESV SP 4CH (MOD) 106.68 ml - EF SP 4CH (MOD) 35.63 % - LV EDV SP 2CH (MOD) 175.78 ml - LV ESV SP 2CH (MOD) 119.93 ml - EF SP 2CH (MOD) 31.77 % - LV EDV BP 174.71 ml - LV ESV BP 114.64 ml - BP EF (MOD) 34.38 % - Diastolic/Systolic Function Name Value Normal Range MV E-wave Vmax 0.5 m/sec - MV deceleration time 236.5 msec - MV A-wave Vmax 0.69 m/sec - MV E:A ratio 0.72 ratio - Aortic Valve Name Value Normal Range AV Vmax 0.81 m/sec - AV VTI 15.84 cm - AV peak gradient 2.61 mmHg - AV mean gradient 1.42 mmHg - LVOT diameter 2.14 cm - LVOT Vmax 0.71 m/sec - LVOT VTI 14.04 cm - LVOT peak gradient 2 mmHg - LVOT mean gradient 1.12 mmHg - SV LVOT 50.55 ml - ISAIAS (continuity Vmax) 3.15 cm2 - ISAIAS (continuity VTI) 3.19 cm2 - Ascending Ao 2.98 cm - Mitral Valve Name Value Normal Range MV Vmax 0.6 m/sec - MV VTI 19.86 cm - MV peak gradient 1.46 mmHg - MV mean gradient 0.56 mmHg - MV PHT 58.46 msec - MR Vmax 3.91 m/sec - MVA (PHT) 3.76 cm2 - MVA (continuity VTI) 2.54 cm2 - Tricuspid Valve Name Value Normal Range TR Vmax 2.07 m/sec - TR peak gradient 17 mmHg - RAP 3 mmHg - RVSP 20 mmHg - IVC diameter 0.98 cm (1.2 - 2.3) Pulmonic Valve/Qp:Qs Name Value Normal Range PV Vmax 0.73 m/sec - PV VTI 13.32 cm - PV peak gradient 2.15 mmHg - PV mean gradient 1.2 mmHg - RVOT Vmax 0.66 m/sec - RVOT VTI 11.66 cm - RVOT peak gradient 1.77 mmHg - Mejia/IV: Voiding Method Urinal IV Catheter Type [Right INT / Saline Lock Forearm] IV Catheter Type [Left Peripheral IV Antecubital] Active Medications - Current Medications Current Medications: Generic Name Dose Route Start Last Admin Trade Name Freq PRN Reason Stop Dose Admin Acetaminophen 650 mg 11/23/19 01:28 Tylenol PO Q4H PRN Pain, Mild (1-3) Aspirin 300 mg 11/23/19 10:00 11/27/19 09:[address] 300 mg QDAY YELENA Administration Atorvastatin Calcium 40 mg 11/23/19 22:00 11/27/19 21:43 Lipitor PO 40 mg QHS YELENA Administration Bisacodyl 10 mg 11/23/19 01:[address] QDAY PRN Constipation Carvedilol 3.125 mg 11/26/19 22:00 11/27/19 21:43 Coreg PO 3.125 mg BID YELENA Administration Heparin Sodium (Porcine) 5,000 unit 11/23/19 08:00 11/28/19 05:51 Heparin SUB-Q 5,000 unit Q8HR YELENA Administration Lisinopril 2.5 mg 11/27/19 10:00 11/27/19 09:54 Zestril PO 2.5 mg QDAY YELENA Administration Magnesium Hydroxide 30 ml 11/23/19 01:28 Milk Of Magnesia PO Q4H PRN Constipation Metoclopramide HCl 10 mg 11/23/19 01:28 Reglan PO Q6H PRN Nausea And Vomiting Morphine Sulfate 2 mg 11/23/19 01:28 Morphine IV Q4H PRN Pain, Moderate (4-6) Ondansetron HCl 4 mg 11/23/19 01:28 Zofran IV Q8H PRN Nausea And Vomiting Promethazine HCl 25 mg 11/23/19 01:[address] Q6H PRN Nausea And Vomiting Sodium Chloride 10 ml 11/23/19 10:00 11/27/19 21:44 Sodium Chloride Flush Syringe 10 Ml IV 10 ml BID YELENA Administration Sodium Chloride 10 ml 11/23/19 01:28 Sodium Chloride Flush Syringe 10 Ml IV PRN PRN LINE FLUSH Nutrition/Malnutrition Assess - Dietary Evaluation Nutrition/Malnutrition Findings: Nutrition Notes Start: 11/23/19 09:15 Freq: Status: Active Protocol: Document 11/25/19 16:11 [facility] (Rec: 11/25/19 16:17 [facility] [id number] [email or web address]) Nutrition Notes Initial or Follow up Brief Note Other Pertinent Diagnosis CVA Current Diet [facility] soft with chopped meats with nectar-thick liquids Labs/Tests reviewed Pertinent Medications reviewed Height 6 ft Weight 90.7 kg [place] Body Weight (kg) 80.90 BMI 27.1 Weight Status Overweight Subjective/Other Information Diet advanced last pm. Pt not appropriate for diet education at this time. Per RN, pt is alert and oriented x 1. BP has been <140/90 since admission; BG has been <150. He consumed 75% dinner last pm. Burn Absent Trauma Absent Current % PO Good (75-100%) Minimum of two criteria No Is patient on ventilator? No Is Patient Ambulatory and/or Out of Bed No REE-([facility]-confined to bed) 9013.166 Calculation Used for Recommendations [facility] Additional Notes Pro needs 0.8-1g/k-91g/ day Fluid needs 1ml/kcal Nutrition Intervention Anticipated Discharge Needs: None identified at this time Follow-Up By: 11/30/19 Additional Comments F/U: intakes
[2019-11-28] MEDS: carvediloL 3.125 MG TAB PO SCH ×2 (10:28→21:03)
[2019-11-28] MEDS: ASPIRIN 300 MG RECT SUPP PR SCH (10:28)
[2019-11-28] MEDS: LISINOPRIL 5 MG TAB PO SCH (10:29)
--- NOTE | 2019-11-28 10:46 | Progress Note ---
Assessment and Plan - Patient Problems (1) Cardiomyopathy Current Visit: Yes Status: Acute Subjective Date of service: 11/28/19 Principal diagnosis: Stroke Interval history: NO C/O Objective Vital Signs Temp Pulse Pulse Resp BP BP Pulse Ox 11/28/19 10:29 63 90/49 11/28/19 10:28 63 90/49 11/28/19 05:04 98.2 F 57 L 18 94/54 11/28/19 04:50 59 L 96 11/28/19 00:07 63 20 88/51 97 11/27/19 22:00 63 70 20 98 11/27/19 21:43 66 103/62 11/27/19 20:00 99.0 F 64 20 103/62 98 - Physical Examination General: Other (CONFUSED) HEENT: Positive: PERRL Neck: Positive: trachea midline Extremities: Present: edema (NO)
[2019-11-29] MEDS: HEPARIN 5,000 UNIT/1 ML VIAL SUB-Q SCH ×3 (04:59→21:35)
[2019-11-29] MEDS: LISINOPRIL 5 MG TAB PO SCH (09:43)
[2019-11-29] MEDS: carvediloL 3.125 MG TAB PO SCH ×2 (09:43→21:34)
[2019-11-29] MEDS: ASPIRIN 300 MG RECT SUPP PR SCH (09:44)
--- NOTE | 2019-11-29 09:50 | Progress Note ---
Assessment and Plan Assessment and plan: Left MCA CVA. Carotid ultrasound reveals 50% stenosis bilaterally. Await MRI and MARTIN. Dilated cardiomyopathy. Echocardiogram revealed left ventricular size moderate to severely dilated. Mild to moderate concentric left ventricular hypertrophy. Global left ventricular systolic function severely decreased with EF of 25%. Cardiology following; continue Toprol-XL and low-dose lisinopril. Consider MARTIN for Friday per cardiology recommendations. 11/28/2019. Await MRI and MARTIN. Continue Toprol and lisinopril. Awaiting placement. 11/29/2019. Await MRI and MARTIN. Will discuss with case management obtaining consent for MRI. Apparently, patient was unable to give consent when attempted on Friday. MARTIN per cardiology recommendations. Placement per PT recommendations. History Interval history: No new issues overnight. Hospitalist Physical - Constitutional Vitals: Temp Pulse Resp BP Pulse Ox 98.5 F 63 17 99/65 99 11/29/19 08:06 11/29/19 09:43 11/29/19 08:06 11/29/19 09:43 11/29/19 08:06 General appearance: Present: no acute distress - EENT Eyes: Present: PERRL, EOM intact ENT: hearing intact, clear oral mucosa, dentition normal - Neck Neck: Present: supple, normal ROM - Respiratory Respiratory effort: normal Respiratory: bilateral: CTA - Cardiovascular Rhythm: regular Heart Sounds: Present: S1 & S2. Absent: gallop, rub - Extremities Extremities: no ischemia, No edema, Full ROM - Abdominal General gastrointestinal: soft, non-tender, non-distended, normal bowel sounds - Integumentary Integumentary: Present: clear, warm, dry - Neurologic Neurologic: CNII-XII intact, moves all extremities HEART Score - HEART Score Troponin: Troponin T < 0.010 ng/mL (0.00-0.029) 11/22/19 21:19 Results - Labs CBC & Chem 7: 11/24/19 04:51 11/24/19 04:51 Labs: Laboratory Last Values WBC 6.3 K/mm3 (4.5-11.0) 11/24/19 04:51 RBC 4.52 M/mm3 (3.65-5.03) 11/24/19 04:51 Hgb 14.5 gm/dl (11.8-15.2) 11/24/19 04:51 Hct 41.9 % (35.5-45.6) 11/24/19 04:51 MCV 93 fl (84-94) 11/24/19 04:51 MCH 32 pg (28-32) 11/24/19 04:51 MCHC 35 % (32-34) H 11/24/19 04:51 RDW 13.9 % (13.2-15.2) 11/24/19 04:51 Plt Count 323 K/mm3 (140-440) 11/24/19 04:51 Lymph % (Auto) 44.0 % (13.4-35.0) H 11/24/19 04:51 [place] % (Auto) 10.0 % (0.0-7.3) H 11/24/19 04:51 Eos % (Auto) 0.9 % (0.0-4.3) 11/24/19 04:51 Baso % (Auto) 1.2 % (0.0-1.8) 11/24/19 04:51 Lymph # 2.8 K/mm3 (1.2-5.4) 11/24/19 04:51 [place] # 0.6 K/mm3 (0.0-0.8) 11/24/19 04:51 Eos # 0.1 K/mm3 (0.0-0.4) 11/24/19 04:51 Baso # 0.1 K/mm3 (0.0-0.1) 11/24/19 04:51 Seg Neutrophils % 43.9 % (40.0-70.0) 11/24/19 04:51 Seg Neutrophils # 2.8 K/mm3 (1.8-7.7) 11/24/19 04:51 PT 13.0 Sec. (12.2-14.9) 11/24/19 04:51 INR 0.97 (0.87-1.13) 11/24/19 04:51 APTT 25.6 Sec. (24.2-36.6) 11/22/19 21:19 Thrombin Time 16.5 Sec. (15.1-19.6) 11/22/19 21:19 Sodium 139 mmol/L (137-145) 11/24/19 04:51 Potassium 3.9 mmol/L (3.6-5.0) 11/24/19 04:51 Chloride 99.1 mmol/L (98-107) 11/24/19 04:51 Carbon Dioxide 26 mmol/L (22-30) 11/24/19 04:51 Anion Gap 18 mmol/L 11/24/19 04:51 BUN 13 mg/dL (9-20) 11/24/19 04:51 Creatinine 1.1 mg/dL (0.8-1.3) 11/24/19 04:51 Estimated GFR > 60 ml/min 11/24/19 04:51 BUN/Creatinine Ratio 12 % 11/24/19 04:51 Glucose 83 mg/dL (75-100) 11/24/19 04:51 POC Glucose 98 (70-105) 11/26/19 16:25 Calcium 9.1 mg/dL (8.4-10.2) 11/24/19 04:51 Troponin T < 0.010 ng/mL (0.00-0.029) 11/22/19 21:19 Triglycerides 112 mg/dL (2-149) 11/24/19 04:51 Cholesterol 165 mg/dL (50-199) 11/24/19 04:51 LDL Cholesterol Direct 115 mg/dL (50-130) 11/24/19 04:51 HDL Cholesterol 40 mg/dL (40-59) 11/24/19 04:51 Cholesterol/HDL Ratio 4.12 % 11/24/19 04:51 - Diagnostic Impressions Diagnostic Impressions: Echocardiogram 11/23/19 01:33 Transthoracic Echocardiogram Indication: Stroke BP: 117/80 HR: 59 Conclusions *The left ventricular size is moderate to severely dilated. *Mild to moderate concentric left ventricular hypertrophy is observed. *Global left ventricular systolic function is severely decreased. *The estimated ejection fraction is 25-30%. *The left atrium is mildly dilated. *There is mild mitral regurgitation. *There is trace tricuspid regurgitation. *A patent foramen ovale is not demonstrated by agitated saline contrast. Findings Left Ventricle: The left ventricular size is moderate to severely dilated. Mild to moderate concentric left ventricular hypertrophy is observed. Global left ventricular systolic function is severely decreased. The estimated ejection fraction is 25-30%. Left Atrium: The left atrium is mildly dilated. Right Ventricle: The right ventricular cavity size is normal. Right Atrium: The right atrial cavity size is normal. A patent foramen ovale is not demonstrated by agitated saline contrast. Aortic Valve: The aortic valve is trileaflet. The aortic valve leaflets are moderately thickened. There is no evidence of aortic regurgitation. There is no evidence of aortic stenosis. Mitral Valve: The mitral valve leaflets are mildly thickened. There is mild mitral regurgitation. There is no evidence of mitral stenosis. Tricuspid Valve: There is trace tricuspid regurgitation. No pulmonary hypertension is noted. Pulmonic Valve: There is trace pulmonic regurgitation. Pericardium: There is no pericardial effusion. Aorta: There is no dilatation of the ascending aorta. There is no dilatation of the aortic root. Venous: The inferior vena cava appears normal in size. Contrast: Intravenous agitated saline contrast was used to assess intracardiac shunting. Measurements Chambers 2D Name Value Normal Range IVSd (2D) 0.84 cm (0.6 - 1.1) LVPWd (2D) 0.72 cm (0.6 - 1.1) LVIDd (2D) 5.18 cm (3.7 - 5.6) LVIDs (2D) 4.28 cm (2 - 3.8) LV FS (2D) 17.42 % - EF Teichholz (2D) 36.07 % - Ao root diameter (2D) 3 cm (2 - 3.7) Volumes/Mass Name Value Normal Range LA ESV SP 4CH (A/L) 40.41 ml - LA ESV SP 2CH (A/L) 49.7 ml - LA ESV BP (A/L) 46.36 ml - LA ESV BP (A/L) index 21.77 ml/m2 - LA ESV SP 4CH (MOD) 37.38 ml - LA ESV SP 2CH (MOD) 46.48 ml - LA ESV BP (MOD) 43.09 ml - LA ESV BP (MOD) index 20.23 ml/m2 - LV EDV SP 4CH (MOD) 165.74 ml - LV ESV SP 4CH (MOD) 106.68 ml - EF SP 4CH (MOD) 35.63 % - LV EDV SP 2CH (MOD) 175.78 ml - LV ESV SP 2CH (MOD) 119.93 ml - EF SP 2CH (MOD) 31.77 % - LV EDV BP 174.71 ml - LV ESV BP 114.64 ml - BP EF (MOD) 34.38 % - Diastolic/Systolic Function Name Value Normal Range MV E-wave Vmax 0.5 m/sec - MV deceleration time 236.5 msec - MV A-wave Vmax 0.69 m/sec - MV E:A ratio 0.72 ratio - Aortic Valve Name Value Normal Range AV Vmax 0.81 m/sec - AV VTI 15.84 cm - AV peak gradient 2.61 mmHg - AV mean gradient 1.42 mmHg - LVOT diameter 2.14 cm - LVOT Vmax 0.71 m/sec - LVOT VTI 14.04 cm - LVOT peak gradient 2 mmHg - LVOT mean gradient 1.12 mmHg - SV LVOT 50.55 ml - ISAIAS (continuity Vmax) 3.15 cm2 - ISAIAS (continuity VTI) 3.19 cm2 - Ascending Ao 2.98 cm - Mitral Valve Name Value Normal Range MV Vmax 0.6 m/sec - MV VTI 19.86 cm - MV peak gradient 1.46 mmHg - MV mean gradient 0.56 mmHg - MV PHT 58.46 msec - MR Vmax 3.91 m/sec - MVA (PHT) 3.76 cm2 - MVA (continuity VTI) 2.54 cm2 - Tricuspid Valve Name Value Normal Range TR Vmax 2.07 m/sec - TR peak gradient 17 mmHg - RAP 3 mmHg - RVSP 20 mmHg - IVC diameter 0.98 cm (1.2 - 2.3) Pulmonic Valve/Qp:Qs Name Value Normal Range PV Vmax 0.73 m/sec - PV VTI 13.32 cm - PV peak gradient 2.15 mmHg - PV mean gradient 1.2 mmHg - RVOT Vmax 0.66 m/sec - RVOT VTI 11.66 cm - RVOT peak gradient 1.77 mmHg - Mejia/IV: Voiding Method Urinal IV Catheter Type [Right INT / Saline Lock Forearm] IV Catheter Type [Left Peripheral IV Antecubital] Active Medications - Current Medications Current Medications: Generic Name Dose Route Start Last Admin Trade Name Freq PRN Reason Stop Dose Admin Acetaminophen 650 mg 11/23/19 01:28 Tylenol PO Q4H PRN Pain, Mild (1-3) Aspirin 300 mg 11/23/19 10:00 11/29/19 09:44 Aspirin NM 300 mg QDAY YELENA Administration Atorvastatin Calcium 40 mg 11/23/19 22:00 11/28/19 21:03 Lipitor PO 40 mg QHS YELENA Administration Bisacodyl 10 mg 11/23/19 01:28 Dulcolax NM QDAY PRN Constipation Carvedilol 3.125 mg 11/26/19 22:00 11/29/19 09:43 Coreg PO Not Given BID [facility] Heparin Sodium (Porcine) 5,000 unit 11/23/19 08:00 11/29/19 04:59 Heparin SUB-Q 5,000 unit Q8HR YELENA Administration Lisinopril 2.5 mg 11/27/19 10:00 11/29/19 09:43 Zestril PO Not Given QDAY YELENA Magnesium Hydroxide 30 ml 11/23/19 01:28 Milk Of Magnesia PO Q4H PRN Constipation Metoclopramide HCl 10 mg 11/23/19 01:28 Reglan PO Q6H PRN Nausea And Vomiting Morphine Sulfate 2 mg 11/23/19 01:28 Morphine IV Q4H PRN Pain, Moderate (4-6) Ondansetron HCl 4 mg 11/23/19 01:28 Zofran IV Q8H PRN Nausea And Vomiting Promethazine HCl 25 mg 11/23/19 01:28 Phenergan NM Q6H PRN Nausea And Vomiting Sodium Chloride 10 ml 11/23/19 10:00 11/29/19 09:42 Sodium Chloride Flush Syringe 10 Ml IV 10 ml BID YELENA Administration Sodium Chloride 10 ml 11/23/19 01:28 Sodium Chloride Flush Syringe 10 Ml IV PRN PRN LINE FLUSH Nutrition/Malnutrition Assess - Dietary Evaluation Nutrition/Malnutrition Findings: Nutrition Notes Start: 11/23/19 09:15 Freq: Status: Active Protocol: Document 11/25/19 16:11 [facility] (Rec: 11/25/19 16:17 [facility] [id number]) Nutrition Notes Initial or Follow up Brief Note Other Pertinent Diagnosis CVA Current Diet Mech soft with chopped meats with nectar-thick liquids Labs/Tests reviewed Pertinent Medications reviewed Height 6 ft Weight 90.7 kg [place] Body Weight (kg) 80.90 BMI 27.1 Weight Status Overweight Subjective/Other Information Diet advanced last pm. Pt not appropriate for diet education at this time. Per RN, pt is alert and oriented x 1. BP has been <140/90 since admission; BG has been <150. He consumed 75% dinner last pm. Burn Absent Trauma Absent Current % PO Good (75-100%) Minimum of two criteria No Is patient on ventilator? No Is Patient Ambulatory and/or Out of Bed No REE-([facility]-confined to bed) 9.324 Calculation Used for Recommendations [facility] Additional Notes Pro needs 0.8-1g/k-91g/ day Fluid needs 1ml/kcal Nutrition Intervention Anticipated Discharge Needs: None identified at this time Follow-Up By: 11/30/19 Additional Comments F/U: intakes
--- NOTE | 2019-11-29 10:59 | Progress Note ---
Assessment and Plan Dilated Cardiomyopathy, uncertain duration Echo: LVEF 25-30%. Bubble study is negative. pt unable to provide hx due to confusion Acute CVA unable to obtain consent for MARTIN Aletered Mental status Recommendations: Optimal medical therapy for dilated cardiomyopathy as tolerated. Conservative cardiac management. Subjective Date of service: 11/29/19 Principal diagnosis: Stroke Interval history: Patient is resting in bed comfortably. Alert with confusion. Unable to obtain consent for MARTIN. Objective Vital Signs Temp Pulse Resp BP Pulse Ox 11/29/19 09:43 63 99/65 11/29/19 08:06 98.5 F 65 17 93/58 99 11/29/19 04:00 56 L 11/29/19 03:45 98.3 F 55 L 16 99/63 98 11/28/19 23:08 98.5 F 78 16 103/56 95 11/28/19 19:21 99.5 F 68 18 113/75 98 11/28/19 16:42 70 101/64 97 11/28/19 12:00 65 - Physical Examination General: Other (CONFUSED) HEENT: Positive: PERRL Neck: Positive: trachea midline Extremities: Present: edema (NO)
--- NOTE | 2019-11-29 17:31 | Progress Note ---
Assessment and Plan rule out left frontal stroke. unkown risk factor. cta- left mca high grade stenosis. pt. was seen by tele neuro in ED. time of onset unknown. cta- neck- unremarkable. eho- left ventricle dilated- ef- 25-30%. plan- cont. asa 325 mg q day and lipitor 80 mg q hs. 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 MRI brain still not done. -mental health evaluation for cognition and decision abilties. permissive hypertension for now. thanks. Subjective Principal diagnosis: Stroke Interval history: alert today. better. Objective - Exam Narrative Exam: Neurology examination: MS- alert awake. he can tell his name. lang- naming impaired- also repetition much better today. cn- eomi- possible right central facial paresis. m- no right arm drift today and also right leg drift. Laboratory Results - last 72 hr 11/22/19 11/22/19 11/22/19 21:19 21:19 21:19 WBC 8.9 RBC 4.07 Hgb 13.3 Hct 38.7 MCV 95 H MCH 33 H MCHC 35 H RDW 13.9 Plt Count 299 Lymph % (Auto) 32.6 [place] % (Auto) 10.1 H Eos % (Auto) 0.6 Baso % (Auto) 0.7 Lymph # 2.9 Lewis # 0.9 H Eos # 0.0 Baso # 0.1 Seg Neutrophils % 56.0 Seg Neutrophils # 5.0 PT 13.7 INR 1.04 APTT 25.6 Thrombin Time Sodium 134 L Potassium 4.6 Chloride 100.4 Carbon Dioxide 24 Anion Gap 14 BUN 13 Creatinine 1.2 Estimated GFR > 60 BUN/Creatinine Ratio 11 Glucose 108 H Calcium 9.0 Troponin T < 0.010 11/22/19 21:19 WBC RBC Hgb Hct MCV MCH MCHC RDW Plt Count Lymph % (Auto) [place] % (Auto) Eos % (Auto) Baso % (Auto) Lymph # Lewis # Eos # Baso # Seg Neutrophils % Seg Neutrophils # PT INR APTT Thrombin Time 16.5 Sodium Potassium Chloride Carbon Dioxide Anion Gap BUN Creatinine Estimated GFR BUN/Creatinine Ratio Glucose Calcium Troponin T - Vital Sign Vital Signs - 12hr 11/29/19 11/29/19 11/29/19 08:06 09:43 10:00 Temperature 98.5 F Pulse Rate 65 63 60 Respiratory 17 Rate Blood Pressure 93/58 99/65 O2 Sat by Pulse 99 Oximetry 11/29/19 11/29/19 11:43 15:50 Temperature 98.3 F 99.0 F Pulse Rate 65 58 L Respiratory 17 17 Rate Blood Pressure 95/56 92/53 O2 Sat by Pulse 97 96 Oximetry - Laboratory Findings CBC and BMP: 11/30/19 05:42 11/30/19 05:42 Abnormal Lab Findings: Abnormal Labs 11/22/19 11/22/19 11/24/19 21:19 21:19 04:51 MCV 95 H MCH 33 H MCHC 35 H 35 H Lymph % (Auto) 44.0 H Lewis % (Auto) 10.1 H 10.0 H Lewis # 0.9 H Sodium 134 L Glucose 108 H POC Glucose 11/24/19 11/25/19 11/25/19 20:20 08:49 13:21 MCV MCH MCHC Lymph % (Auto) [place] % (Auto) Lewis # Sodium Glucose POC Glucose 129 H 123 H 111 H 11/26/19 11/26/19 07:49 11:50 MCV MCH MCHC Lymph % (Auto) Lewis % (Auto) Lewis # Sodium Glucose POC Glucose 107 H 133 H
[2019-11-30] MEDS: HEPARIN 5,000 UNIT/1 ML VIAL SUB-Q SCH ×3 (05:28→21:38)
[2019-11-30 06:08] LABS: Basophils # (Auto) 0.1 K/mm3 (0.0-0.1); Basophils % (Auto) 0.9 % (0.0-1.8); Eosinophils # (Auto) 0.1 K/mm3 (0.0-0.4); Eosinophils % (Auto) 1.3 % (0.0-4.3); Hematocrit 45.3 % (35.5-45.6); Hemoglobin 15.2 gm/dl (11.8-15.2); Lymphocytes % (Auto) 49.2 % (13.4-35.0); Mean Corpuscular HGB Conc 34 % (32-34); Mean Corpuscular Volume 94 fl (84-94); Monocytes # (Auto) 0.6 K/mm3 (0.0-0.8); Monocytes % (Auto) 9.7 % (0.0-7.3); Platelet Count 287 K/mm3 (140-440); Red Blood Count 4.81 M/mm3 (3.65-5.03); Red Cell Distribution Width 13.6 % (13.2-15.2)
[2019-11-30 06:50] LABS: BUN/Creatinine Ratio 9; Blood Urea Nitrogen 9 mg/dL (9-20); Calcium 9.6 mg/dL (8.4-10.2); Hemolysis Index 13
[2019-11-30] MEDS: ASPIRIN 300 MG RECT SUPP PR SCH (09:30)
[2019-11-30] MEDS: SPIRONOLACTONE 25 MG TAB PO SCH (09:43)
[2019-11-30] MEDS: LISINOPRIL 5 MG TAB PO SCH (09:43)
--- NOTE | 2019-11-30 09:43 | Progress Note ---
Assessment and Plan Dilated Cardiomyopathy, uncertain duration Echo: LVEF 25-30%. Bubble study is negative. pt unable to provide hx due to confusion Acute CVA unable to obtain consent for MARTIN Aletered Mental status Recommendations: Continue optimal medical therapy for dilated cardiomyopathy as tolerated. As outpatient, he may benefit from a 30-day event monitor for paroxysmal atrial tachyarrhythmias. Outpatient work-up with myocardial perfusion imaging for any ischemic basis of underlying left ventricular dysfunction. Subjective Date of service: 11/30/19 Principal diagnosis: Stroke Interval history: Stable sinus rhythm on telemetry. No cardiac events reported. Objective Vital Signs Temp Pulse Resp BP BP Pulse Ox 11/30/19 07:40 98.4 F 60 20 95/55 100 11/30/19 04:58 98.2 F 61 14 107/60 100 11/29/19 23:07 98.4 F 65 18 105/68 97 11/29/19 20:00 69 11/29/19 19:08 98.6 F 69 18 105/63 96 11/29/19 15:50 99.0 F 58 L 17 92/53 96 11/29/19 11:43 98.3 F 65 17 95/56 97 11/29/19 10:00 60 11/29/19 09:43 63 99/65 - Physical Examination General: No Apparent Distress, Other (CONFUSED) HEENT: Positive: PERRL Neck: Positive: trachea midline Cardiac: Positive: Reg Rate and Rhythm Extremities: Absent: edema - Labs and Meds CBC 11/30/19 Range/Units 05:42 WBC 6.2 (4.5-11.0) K/mm3 RBC 4.81 (3.65-5.03) M/mm3 Hgb 15.2 (11.8-15.2) gm/dl Hct 45.3 (35.5-45.6) % Plt Count 287 (140-440) K/mm3 Lymph # 3.0 (1.2-5.4) K/mm3 [place] # 0.6 (0.0-0.8) K/mm3 Eos # 0.1 (0.0-0.4) K/mm3 Baso # 0.1 (0.0-0.1) K/mm3 Comprehensive Metabolic Panel 11/30/19 Range/Units 05:42 Sodium 137 (137-145) mmol/L Potassium 4.4 (3.6-5.0) mmol/L Chloride 98.4 (98-107) mmol/L Carbon Dioxide 28 (22-30) mmol/L BUN 9 (9-20) mg/dL Creatinine 1.0 (0.8-1.3) mg/dL Glucose 110 H (75-100) mg/dL Calcium 9.6 (8.4-10.2) mg/dL
[2019-11-30] MEDS: carvediloL 3.125 MG TAB PO SCH ×2 (09:44→21:38)
--- NOTE | 2019-11-30 11:44 | Consultation ---
History of Present Illness - Reason for Consult Consult date: 11/30/19 Reason for consult: MHE Requesting physician: ROBB PRAKASH - Chief Complaint Chief complaint: right sided weakness - History of Present Psychiatric Illness Per ED Provider: The patient is a 59-year-old male present with a chief complaint of expressive aphasia and right-sided weakness. The patient is unable to provide a history and mostly replies "yes" regardless of the question asked of him. The patient reportedly from EMS had altered mental status and right- sided weakness with bystanders but states the symptoms may have began at approximately 18: 00 however this is unable to be corroborated. PSYCH HPI - Determination of mental capacity. Patient is a 59 year old Male who was recommended for evaluation to determine Capability and cognition. Per reviewed of patients notes, he was found to have a MCA stenosis. Today pt reports he is good, and fine. Thinks he is in the hospital for mental health issues and he should have been treated with Ibuprofen for his symptoms and the providers dont know his problems. Pt unaware of his diagnosis even though nurses and doctors have repeatedly updated him. PAST PSYCHIATRIC HISTORY Diagnoses: unknown Suicide attempts or Self-harm behavior: unknown Prior psychiatric hospitalizations: unknown Substance Abuse history: unknown Previous psychiatric medications tried: unknown Outpatient treatment: unknown PAST MEDICAL HISTORY: CVA Family Psychiatric History: None reported or documented SOCIAL HISTORY Marital Status: unknown Living Arrangements: unknown Employment Status: unknown Access to guns/weapons: unknown Education: unknown History of Abuse: unknown Legal History: unknown REVIEW OF SYSTEMS ROS cannot be reliably obtained from the patient due to her confusion and somnolence. RECOMMENDATIONS Patient scored 7 on the SLUMS EXAM, which falls in very poor cognitive/Memory function' Using the [facility] Aid to Capacity Evaluation, Pt is not mentally capable to give consent for treatment. Pls review physical copies of exam results in chart. MEDICATIONS: Risks, benefits and alternatives of medications discussed with the patient, questions answered and consent obtained from patient. PSYCHOTHERAPY: Supportive psychotherapy provided MEDICAL: Per primary team DELIRIUM PRECAUTIONS: Please re-orient patient frequently, keep lights on during the day, and minimize benzodiazepines and opiates as these medications could worsen patient's confusion. 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 Please contact with any questions and/or concerns. Medications and Allergies Allergies Allergy/AdvReac Type Severity Reaction Status Date / Time Unable to Assess Allergy Verified 11/23/19 00:04 Home Medications Medication Instructions Recorded Confirmed Last Taken Type Unobtainable 11/26/19 11/26/19 Unknown History Active Meds: Active Medications Acetaminophen (Tylenol) 650 mg PO Q4H PRN PRN Reason: Pain, Mild (1-3) Aspirin (Aspirin) 300 mg [place] QDAY [facility] Last Admin: 11/30/19 09:30 Dose: Not Given Documented by: Atorvastatin Calcium (Lipitor) 40 mg PO QHS [facility] Last Admin: 11/29/19 21:35 Dose: 40 mg Documented by: Bisacodyl (Dulcolax) 10 mg VT QDAY PRN PRN Reason: Constipation Carvedilol (Coreg) 3.125 mg PO BID [facility] Last Admin: 11/30/19 09:44 Dose: 3.125 mg Documented by: Heparin Sodium (Porcine) (Heparin) 5,000 unit SUB-Q Q8HR [facility] Last Admin: 11/30/19 05:28 Dose: 5,000 unit Documented by: Lisinopril (Zestril) 2.5 mg PO QDAY [facility] Last Admin: 11/30/19 09:43 Dose: 2.5 mg Documented by: Magnesium Hydroxide (Milk Of Magnesia) 30 ml PO Q4H PRN PRN Reason: Constipation Metoclopramide HCl (Reglan) 10 mg PO Q6H PRN PRN Reason: Nausea And Vomiting Morphine Sulfate (Morphine) 2 mg IV Q4H PRN PRN Reason: Pain, Moderate (4-6) Ondansetron HCl (Zofran) 4 mg IV Q8H PRN PRN Reason: Nausea And Vomiting Promethazine HCl (Phenergan) 25 mg [place] Q6H PRN PRN Reason: Nausea And Vomiting Sodium Chloride (Sodium Chloride Flush Syringe 10 Ml) 10 ml IV BID [facility] Last Admin: 11/30/19 09:44 Dose: 10 ml Documented by: Sodium Chloride (Sodium Chloride Flush Syringe 10 Ml) 10 ml IV PRN PRN PRN Reason: LINE FLUSH Spironolactone (Aldactone) 25 mg PO QDAY [facility] Last Admin: 11/30/19 09:43 Dose: 25 mg Documented by: Mental Status Exam - Vital signs Last Vital Signs Temp 98.4 F 11/30/19 07:40 Pulse 60 11/30/19 07:40 Resp 20 11/30/19 07:40 BP 95/55 11/30/19 07:40 Pulse Ox 100 11/30/19 07:40 Results Result Diagrams: 11/30/19 05:42 11/30/19 05:42 Abnormal lab results 11/30/19 11/30/19 Range/Units 05:42 05:42 Lymph % (Auto) 49.2 H (13.4-35.0) % [place] % (Auto) 9.7 H (0.0-7.3) % Seg Neutrophils % 38.9 L (40.0-70.0) % Glucose 110 H (75-100) mg/dL All other labs normal.
--- NOTE | 2019-11-30 15:31 | Progress Note ---
Assessment and Plan rule out left frontal stroke. unkown risk factor. cta- left mca high grade stenosis. pt. was seen by tele neuro in ED. time of onset unknown. cta- neck- unremarkable. eho- left ventricle dilated- ef- 25-30%. plan- cont. asa 325 mg q day and lipitor 80 mg q hs. 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 MRI brain still not done. -mental health evaluation deemed that patient cannot take decisions. permissive hypertension for now. thanks. Subjective Principal diagnosis: Stroke Interval history: TELE NEUROLOGY CONSULT. alert today. better than yesterday. Objective - Exam Narrative Exam: Neurology examination: MS- more alert awake. he can tell his name. lang- naming impaired- also repetition much better today. cn- eomi- possible right central facial paresis. m- no right arm drift today and also right leg drift. Laboratory Results - last 72 hr 11/22/19 11/22/19 11/22/19 21:19 21:19 21:19 WBC 8.9 RBC 4.07 Hgb 13.3 Hct 38.7 MCV 95 H MCH 33 H MCHC 35 H RDW 13.9 Plt Count 299 Lymph % (Auto) 32.6 [place] % (Auto) 10.1 H Eos % (Auto) 0.6 Baso % (Auto) 0.7 Lymph # 2.9 [place] # 0.9 H Eos # 0.0 Baso # 0.1 Seg Neutrophils % 56.0 Seg Neutrophils # 5.0 PT 13.7 INR 1.04 APTT 25.6 Thrombin Time Sodium 134 L Potassium 4.6 Chloride 100.4 Carbon Dioxide 24 Anion Gap 14 BUN 13 Creatinine 1.2 Estimated GFR > 60 BUN/Creatinine Ratio 11 Glucose 108 H Calcium 9.0 Troponin T < 0.010 11/22/19 21:19 WBC RBC Hgb Hct MCV MCH MCHC RDW Plt Count Lymph % (Auto) [place] % (Auto) Eos % (Auto) Baso % (Auto) Lymph # [place] # Eos # Baso # Seg Neutrophils % Seg Neutrophils # PT INR APTT Thrombin Time 16.5 Sodium Potassium Chloride Carbon Dioxide Anion Gap BUN Creatinine Estimated GFR BUN/Creatinine Ratio Glucose Calcium Troponin T - Vital Sign Vital Signs - 12hr 11/30/19 11/30/19 11/30/19 04:58 07:40 10:00 Temperature 98.2 F 98.4 F Pulse Rate 61 60 70 Respiratory 14 20 Rate Blood Pressure 95/55 Blood Pressure 107/60 [Right] O2 Sat by Pulse 100 100 Oximetry 11/30/19 11:51 Temperature 98.0 F Pulse Rate 61 Respiratory 20 Rate Blood Pressure 83/40 Blood Pressure [Right] O2 Sat by Pulse 96 Oximetry - Laboratory Findings CBC and BMP: 11/30/19 05:42 11/30/19 05:42 Abnormal Lab Findings: Abnormal Labs 11/22/19 11/22/19 11/24/19 21:19 21:19 04:51 MCV 95 H MCH 33 H MCHC 35 H 35 H Lymph % (Auto) 44.0 H [place] % (Auto) 10.1 H 10.0 H [place] # 0.9 H Seg Neutrophils % Sodium 134 L Glucose 108 H POC Glucose 11/24/19 11/25/19 11/25/19 20:20 08:49 13:21 MCV MCH MCHC Lymph % (Auto) [place] % (Auto) [place] # Seg Neutrophils % Sodium Glucose POC Glucose 129 H 123 H 111 H 11/26/19 11/26/19 11/30/19 07:49 11:50 05:42 MCV MCH MCHC Lymph % (Auto) 49.2 H [place] % (Auto) 9.7 H [place] # Seg Neutrophils % 38.9 L Sodium Glucose POC Glucose 107 H 133 H 11/30/19 05:42 MCV MCH MCHC Lymph % (Auto) [place] % (Auto) [place] # Seg Neutrophils % Sodium Glucose 110 H POC Glucose
--- NOTE | 2019-11-30 18:45 | Progress Note ---
Assessment and Plan Assessment and plan: Hospiital course [id number]--Mexican male presenting to the emergency room today with a complaint of expressive aphasia and right-sided weakness. Patient was brought into the emergency room by EMS. He was said to have had a change in mental status and right-sided weakness witnessed by bystanders who indicated that symptoms may have started about 1800 today. Patient unable to give a very good history corresponds by nodding his head when asked questions. CT scan of the head was compatible with CVA.Tele neurologist was consulted. Initial recommendation was to transfer to another facility however final decision as taken by the neurologists and neurosurgeons was to monitor patient in this facility as patient does not need any urgent intervention. 11/28/2019. Await MRI and MRATIN. Continue Toprol and lisinopril. Awaiting placement. 11/29/2019. Await MRI and MARTIN. Will discuss with case management obtaining consent for MRI. Apparently, patient was unable to give consent when attempted on Friday. MARTIN per cardiology recommendations. Placement per PT recommendations. 11/29. Needs MARTIN. Mental health to evaluate. Tried some numbers he gave me today but no response. He may need a 2PC if he has no capacity. Assessment and Plan Left MCA CVA. Carotid ultrasound reveals 50% stenosis bilaterally. Await MRI and MARTIN. Dilated cardiomyopathy. Echocardiogram revealed left ventricular size moderate to severely dilated. Mild to moderate concentric left ventricular hypertrophy. Global left ventricular systolic function severely decreased with EF of 25%. Cardiology following; continue Toprol-XL and low-dose lisinopril.. History Interval history: See assessment and plan Hospitalist Physical - Constitutional Vitals: Temp Pulse Resp BP Pulse Ox 98.0 F 62 20 89/53 99 11/30/19 11:51 11/30/19 15:24 11/30/19 11:51 11/30/19 15:24 11/30/19 15:24 General appearance: Present: no acute distress - EENT Eyes: Present: PERRL - Neck Neck: Present: supple - Cardiovascular Rhythm: regular Heart Sounds: Present: S1 & S2 - Psychiatric Psychiatric: appropriate mood/affect - Neurologic Neurologic: CNII-XII intact, other (He is alert but confused) HEART Score - HEART Score Troponin: Troponin T < 0.010 ng/mL (0.00-0.029) 11/22/19 21:19 Results - Labs CBC & Chem 7: 11/30/19 05:42 11/30/19 05:42 Labs: Laboratory Last Values WBC 6.2 K/mm3 (4.5-11.0) 11/30/19 05:42 RBC 4.81 M/mm3 (3.65-5.03) 11/30/19 05:42 Hgb 15.2 gm/dl (11.8-15.2) 11/30/19 05:42 Hct 45.3 % (35.5-45.6) 11/30/19 05:42 MCV 94 fl (84-94) 11/30/19 05:42 MCH 32 pg (28-32) 11/30/19 05:42 MCHC 34 % (32-34) 11/30/19 05:42 RDW 13.6 % (13.2-15.2) 11/30/19 05:42 Plt Count 287 K/mm3 (140-440) 11/30/19 05:42 Lymph % (Auto) 49.2 % (13.4-35.0) H 11/30/19 05:42 [place] % (Auto) 9.7 % (0.0-7.3) H 11/30/19 05:42 Eos % (Auto) 1.3 % (0.0-4.3) 11/30/19 05:42 Baso % (Auto) 0.9 % (0.0-1.8) 11/30/19 05:42 Lymph # 3.0 K/mm3 (1.2-5.4) 11/30/19 05:42 [place] # 0.6 K/mm3 (0.0-0.8) 11/30/19 05:42 Eos # 0.1 K/mm3 (0.0-0.4) 11/30/19 05:42 Baso # 0.1 K/mm3 (0.0-0.1) 11/30/19 05:42 Seg Neutrophils % 38.9 % (40.0-70.0) L 11/30/19 05:42 Seg Neutrophils # 2.4 K/mm3 (1.8-7.7) 11/30/19 05:42 PT 13.0 Sec. (12.2-14.9) 11/24/19 04:51 INR 0.97 (0.87-1.13) 11/24/19 04:51 APTT 25.6 Sec. (24.2-36.6) 11/22/19 21:19 Thrombin Time 16.5 Sec. (15.1-19.6) 11/22/19 21:19 Sodium 137 mmol/L (137-145) 11/30/19 05:42 Potassium 4.4 mmol/L (3.6-5.0) 11/30/19 05:42 Chloride 98.4 mmol/L (98-107) 11/30/19 05:42 Carbon Dioxide 28 mmol/L (22-30) 11/30/19 05:42 Anion Gap 15 mmol/L 11/30/19 05:42 BUN 9 mg/dL (9-20) 11/30/19 05:42 Creatinine 1.0 mg/dL (0.8-1.3) 11/30/19 05:42 Estimated GFR > 60 ml/min 11/30/19 05:42 BUN/Creatinine Ratio 9 % 11/30/19 05:42 Glucose 110 mg/dL (75-100) H 11/30/19 05:42 POC Glucose 92 (70-105) 11/30/19 17:28 Calcium 9.6 mg/dL (8.4-10.2) 11/30/19 05:42 Troponin T < 0.010 ng/mL (0.00-0.029) 11/22/19 21:19 Triglycerides 112 mg/dL (2-149) 11/24/19 04:51 Cholesterol 165 mg/dL (50-199) 11/24/19 04:51 LDL Cholesterol Direct 115 mg/dL (50-130) 11/24/19 04:51 HDL Cholesterol 40 mg/dL (40-59) 11/24/19 04:51 Cholesterol/HDL Ratio 4.12 % 11/24/19 04:51 - Diagnostic Impressions Diagnostic Impressions: Echocardiogram 11/23/19 01:33 Transthoracic Echocardiogram Indication: Stroke BP: 117/80 HR: 59 Conclusions *The left ventricular size is moderate to severely dilated. *Mild to moderate concentric left ventricular hypertrophy is observed. *Global left ventricular systolic function is severely decreased. *The estimated ejection fraction is 25-30%. *The left atrium is mildly dilated. *There is mild mitral regurgitation. *There is trace tricuspid regurgitation. *A patent foramen ovale is not demonstrated by agitated saline contrast. Findings Left Ventricle: The left ventricular size is moderate to severely dilated. Mild to moderate concentric left ventricular hypertrophy is observed. Global left ventricular systolic function is severely decreased. The estimated ejection fraction is 25-30%. Left Atrium: The left atrium is mildly dilated. Right Ventricle: The right ventricular cavity size is normal. Right Atrium: The right atrial cavity size is normal. A patent foramen ovale is not demonstrated by agitated saline contrast. Aortic Valve: The aortic valve is trileaflet. The aortic valve leaflets are moderately thickened. There is no evidence of aortic regurgitation. There is no evidence of aortic stenosis. Mitral Valve: The mitral valve leaflets are mildly thickened. There is mild mitral regurgitation. There is no evidence of mitral stenosis. Tricuspid Valve: There is trace tricuspid regurgitation. No pulmonary hypertension is noted. Pulmonic Valve: There is trace pulmonic regurgitation. Pericardium: There is no pericardial effusion. Aorta: There is no dilatation of the ascending aorta. There is no dilatation of the aortic root. Venous: The inferior vena cava appears normal in size. Contrast: Intravenous agitated saline contrast was used to assess intracardiac shunting. Measurements Chambers 2D Name Value Normal Range IVSd (2D) 0.84 cm (0.6 - 1.1) LVPWd (2D) 0.72 cm (0.6 - 1.1) LVIDd (2D) 5.18 cm (3.7 - 5.6) LVIDs (2D) 4.28 cm (2 - 3.8) LV FS (2D) 17.42 % - EF Teichholz (2D) 36.07 % - Ao root diameter (2D) 3 cm (2 - 3.7) Volumes/Mass Name Value Normal Range LA ESV SP 4CH (A/L) 40.41 ml - LA ESV SP 2CH (A/L) 49.7 ml - LA ESV BP (A/L) 46.36 ml - LA ESV BP (A/L) index 21.77 ml/m2 - LA ESV SP 4CH (MOD) 37.38 ml - LA ESV SP 2CH (MOD) 46.48 ml - LA ESV BP (MOD) 43.09 ml - LA ESV BP (MOD) index 20.23 ml/m2 - LV EDV SP 4CH (MOD) 165.74 ml - LV ESV SP 4CH (MOD) 106.68 ml - EF SP 4CH (MOD) 35.63 % - LV EDV SP 2CH (MOD) 175.78 ml - LV ESV SP 2CH (MOD) 119.93 ml - EF SP 2CH (MOD) 31.77 % - LV EDV BP 174.71 ml - LV ESV BP 114.64 ml - BP EF (MOD) 34.38 % - Diastolic/Systolic Function Name Value Normal Range MV E-wave Vmax 0.5 m/sec - MV deceleration time 236.5 msec - MV A-wave Vmax 0.69 m/sec - MV E:A ratio 0.72 ratio - Aortic Valve Name Value Normal Range AV Vmax 0.81 m/sec - AV VTI 15.84 cm - AV peak gradient 2.61 mmHg - AV mean gradient 1.42 mmHg - LVOT diameter 2.14 cm - LVOT Vmax 0.71 m/sec - LVOT VTI 14.04 cm - LVOT peak gradient 2 mmHg - LVOT mean gradient 1.12 mmHg - SV LVOT 50.55 ml - ISAIAS (continuity Vmax) 3.15 cm2 - ISAIAS (continuity VTI) 3.19 cm2 - Ascending Ao 2.98 cm - Mitral Valve Name Value Normal Range MV Vmax 0.6 m/sec - MV VTI 19.86 cm - MV peak gradient 1.46 mmHg - MV mean gradient 0.56 mmHg - MV PHT 58.46 msec - MR Vmax 3.91 m/sec - MVA (PHT) 3.76 cm2 - MVA (continuity VTI) 2.54 cm2 - Tricuspid Valve Name Value Normal Range TR Vmax 2.07 m/sec - TR peak gradient 17 mmHg - RAP 3 mmHg - RVSP 20 mmHg - IVC diameter 0.98 cm (1.2 - 2.3) Pulmonic Valve/Qp:Qs Name Value Normal Range PV Vmax 0.73 m/sec - PV VTI 13.32 cm - PV peak gradient 2.15 mmHg - PV mean gradient 1.2 mmHg - RVOT Vmax 0.66 m/sec - RVOT VTI 11.66 cm - RVOT peak gradient 1.77 mmHg - Mejia/IV: Voiding Method External Female Catheter IV Catheter Type [Right INT / Saline Lock Forearm] IV Catheter Type [Left Peripheral IV Antecubital] Active Medications - Current Medications Current Medications: Generic Name Dose Route Start Last Admin Trade Name Freq PRN Reason Stop Dose Admin Acetaminophen 650 mg 11/23/19 01:28 Tylenol PO Q4H PRN Pain, Mild (1-3) Aspirin 300 mg 11/23/19 10:00 11/30/19 09:30 Aspirin MD Not Given QDAY [facility] Atorvastatin Calcium 40 mg 11/23/19 22:00 11/29/19 21:35 Lipitor PO 40 mg QHS [facility] Administration Bisacodyl 10 mg 11/23/19 01:28 Dulcolax MD QDAY PRN Constipation Carvedilol 3.125 mg 11/26/19 22:00 11/30/19 09:44 Coreg PO 3.125 mg BID [facility] Administration Heparin Sodium (Porcine) 5,000 unit 11/23/19 08:00 11/30/19 13:13 Heparin SUB-Q 5,000 unit Q8HR [facility] Administration Lisinopril 2.5 mg 11/27/19 10:00 11/30/19 09:43 Zestril PO 2.5 mg QDAY [facility] Administration Magnesium Hydroxide 30 ml 11/23/19 01:28 Milk Of Magnesia PO Q4H PRN Constipation Metoclopramide HCl 10 mg 11/23/19 01:28 Reglan PO Q6H PRN Nausea And Vomiting Morphine Sulfate 2 mg 11/23/19 01:28 Morphine IV Q4H PRN Pain, Moderate (4-6) Ondansetron HCl 4 mg 11/23/19 01:28 Zofran IV Q8H PRN Nausea And Vomiting Promethazine HCl 25 mg 11/23/19 01:28 Phenergan MD Q6H PRN Nausea And Vomiting Sodium Chloride 10 ml 11/23/19 10:00 11/30/19 09:44 Sodium Chloride Flush Syringe 10 Ml IV 10 ml BID YELENA Administration Sodium Chloride 10 ml 11/23/19 01:28 Sodium Chloride Flush Syringe 10 Ml IV PRN PRN LINE FLUSH Spironolactone 25 mg 11/30/19 10:00 11/30/19 09:43 Aldactone PO 25 mg QDAY [facility] Administration Nutrition/Malnutrition Assess - Dietary Evaluation Nutrition/Malnutrition Findings: Nutrition Notes Start: 11/23/19 09:15 Freq: Status: Active Protocol: Document 11/30/19 13:46 LM (Rec: 11/30/19 14:05 LM [email or web address]) Nutrition Notes Initial or Follow up Assessment Other Pertinent Diagnosis CVA Current Diet [facility] soft with chopped meats with nectar-thick liquids Labs/Tests reviewed Pertinent Medications reviewed Height 6 ft Weight 76.2 kg [place] Body Weight (kg) 80.90 BMI 22.8 Weight change and time frame wt change noted. Pt appeared to be current wt Weight Status Appropriate Subjective/Other Information Pt was somewhat confused and did not make sense at times. Was able to make out that pt wants more vegetables and would like ONS. Pt did not eat breakfast. Burn Absent Trauma Absent Current % PO Poor (25-49%) Minimum of two criteria No physical signs of malnutrition #1 Nutrition Diagnosis Inadequate oral intake Etiology CVA As Evidenced by Signs and Symptoms pt not eaing breakfast Is Patient Ambulatory and/or Out of Bed No REE-([facility] [place]-confined to bed) [phone] Calculation Used for Recommendations [facility] Additional Notes Pro needs 0.8-1g/k-76g/ day Fluid needs 1ml/kcal Nutrition Intervention Change Diet Order: continue Add Supplement/Snack (indicate name/kcal Ensure Enlive vanilla BID /protein ) CHILLED Provides kCal: 700 Provides Protein (gm) 40 Goal #1 Meet at least 75% of energy and protein needs Anticipated Discharge Needs: unable to determine at this time Follow-Up By: 12/02/19 Additional Comments F/U for PO/ONS intakes
[2019-12-01] MEDS: HEPARIN 5,000 UNIT/1 ML VIAL SUB-Q SCH ×3 (06:11→22:07)
--- NOTE | 2019-12-01 10:38 | Progress Note ---
Assessment and Plan Dilated Cardiomyopathy, uncertain duration Echo: LVEF 25-30%. Bubble study is negative. pt unable to provide hx due to confusion there are no tachyarrhythmias seen on telemetry thus far. Acute CVA unable to obtain consent for MARTIN [place] Mental status Recommendations: Continue optimal medical therapy for dilated cardiomyopathy as tolerated. As outpatient, he may benefit from a 30-day event monitor for paroxysmal atrial tachyarrhythmias. Outpatient work-up with myocardial perfusion imaging for any ischemic basis of underlying left ventricular dysfunction. Subjective Date of service: 12/01/19 Principal diagnosis: Stroke Interval history: Patient is resting in bed and appears comfortable. Stable sinus rhythm on telemetry. No arrhythmias seen on telemetry monitoring overnight. Objective Vital Signs Temp Pulse Resp BP Pulse Ox 12/01/19 03:39 98.5 F 63 18 81/55 99 11/30/19 23:07 98.5 F 63 16 88/55 98 11/30/19 20:00 64 11/30/19 19:26 99.0 F 64 16 108/56 95 11/30/19 15:24 62 89/53 99 11/30/19 11:51 98.0 F 61 20 83/40 96 - Physical Examination General: No Apparent Distress, Other (CONFUSED) HEENT: Positive: PERRL Neck: Positive: trachea midline Cardiac: Positive: Reg Rate and Rhythm Extremities: Absent: edema
[2019-12-01] MEDS: carvediloL 3.125 MG TAB PO SCH ×2 (11:09→22:07)
[2019-12-01] MEDS: SPIRONOLACTONE 25 MG TAB PO SCH (11:09)
[2019-12-01] MEDS: LISINOPRIL 5 MG TAB PO SCH (11:21)
[2019-12-01] MEDS: ASPIRIN 300 MG RECT SUPP PR SCH (13:25)
--- NOTE | 2019-12-01 17:18 | Progress Note ---
Assessment and Plan Assessment and plan: Hospital course [id number]--Vin[place] male presenting to the emergency room today with a complaint of expressive aphasia and right-sided weakness. Patient was brought into the emergency room by EMS. He was said to have had a change in mental status and right-sided weakness witnessed by bystanders who indicated that symptoms may have started about 1800 today. Patient unable to give a very good history corresponds by nodding his head when asked questions. CT scan of the head was compatible with CVA.Tele neurologist was consulted. Initial recommendation was to transfer to another facility however final decision as taken by the neurologists and neurosurgeons was to monitor patient in this facility as patient does not need any urgent intervention. 11/28/2019. Await MRI and MARTIN. Continue Toprol and lisinopril. Awaiting placement. 11/29/2019. Await MRI and MARTIN. Will discuss with case management obtaining consent for MRI. Apparently, patient was unable to give consent when attempted on Friday. MARTIN per cardiology recommendations. Placement per PT recommendations. 11/29. Needs MARTIN. Mental health to evaluate. Tried some numbers he gave me today but no response. He may need a 2PC if he has no capacity. 11/30. Discussed with cardiology - his TTE was clear and did not show any clot so there is no need for a MARTIN. WIll update neurology. Still not able to get MRI brain as no family member has been contacted. Assessment and Plan Left MCA CVA. Carotid ultrasound reveals 50% stenosis bilaterally. MRI brain ordered but not able to fill the form due his mental status. No family has been reached as he is not able to produce contact numbers. Will continue antiplatelet therapy and statins. Discussed with cardiology - no MARTIN indicated as TTE showed no clot. Dilated cardiomyopathy. Echocardiogram revealed left ventricular size moderate to severely dilated. Mild to moderate concentric left ventricular hypertrophy. Global left ventricular systolic function severely decreased with EF of 25%. Cardiology following; continue Toprol-XL and low-dose lisinopril.. History Interval history: See assessment and plan Hospitalist Physical - Constitutional Vitals: Temp Pulse Resp BP Pulse Ox 98.1 F 64 20 102/64 97 12/01/19 11:06 12/01/19 11:09 12/01/19 11:06 12/01/19 11:09 12/01/19 11:06 General appearance: Present: no acute distress - EENT Eyes: Present: PERRL - Neck Neck: Present: supple - Respiratory Respiratory effort: normal Respiratory: bilateral: CTA - Cardiovascular Rhythm: regular Heart Sounds: Present: S1 & S2 - Extremities Extremities: No edema - Abdominal General gastrointestinal: soft, non-tender, non-distended HEART Score - HEART Score Troponin: Troponin T < 0.010 ng/mL (0.00-0.029) 11/22/19 21:19 Results - Labs CBC & Chem 7: 11/30/19 05:42 11/30/19 05:42 Labs: Laboratory Last Values WBC 6.2 K/mm3 (4.5-11.0) 11/30/19 05:42 RBC 4.81 M/mm3 (3.65-5.03) 11/30/19 05:42 Hgb 15.2 gm/dl (11.8-15.2) 11/30/19 05:42 Hct 45.3 % (35.5-45.6) 11/30/19 05:42 MCV 94 fl (84-94) 11/30/19 05:42 MCH 32 pg (28-32) 11/30/19 05:42 MCHC 34 % (32-34) 11/30/19 05:42 RDW 13.6 % (13.2-15.2) 11/30/19 05:42 Plt Count 287 K/mm3 (140-440) 11/30/19 05:42 Lymph % (Auto) 49.2 % (13.4-35.0) H 11/30/19 05:42 [place] % (Auto) 9.7 % (0.0-7.3) H 11/30/19 05:42 Eos % (Auto) 1.3 % (0.0-4.3) 11/30/19 05:42 Baso % (Auto) 0.9 % (0.0-1.8) 11/30/19 05:42 Lymph # 3.0 K/mm3 (1.2-5.4) 11/30/19 05:42 [place] # 0.6 K/mm3 (0.0-0.8) 11/30/19 05:42 Eos # 0.1 K/mm3 (0.0-0.4) 11/30/19 05:42 Baso # 0.1 K/mm3 (0.0-0.1) 11/30/19 05:42 Seg Neutrophils % 38.9 % (40.0-70.0) L 11/30/19 05:42 Seg Neutrophils # 2.4 K/mm3 (1.8-7.7) 11/30/19 05:42 PT 13.0 Sec. (12.2-14.9) 11/24/19 04:51 INR 0.97 (0.87-1.13) 11/24/19 04:51 APTT 25.6 Sec. (24.2-36.6) 11/22/19 21:19 Thrombin Time 16.5 Sec. (15.1-19.6) 11/22/19 21:19 Sodium 137 mmol/L (137-145) 11/30/19 05:42 Potassium 4.4 mmol/L (3.6-5.0) 11/30/19 05:42 Chloride 98.4 mmol/L (98-107) 11/30/19 05:42 Carbon Dioxide 28 mmol/L (22-30) 11/30/19 05:42 Anion Gap 15 mmol/L 11/30/19 05:42 BUN 9 mg/dL (9-20) 11/30/19 05:42 Creatinine 1.0 mg/dL (0.8-1.3) 11/30/19 05:42 Estimated GFR > 60 ml/min 11/30/19 05:42 BUN/Creatinine Ratio 9 % 11/30/19 05:42 Glucose 110 mg/dL (75-100) H 11/30/19 05:42 POC Glucose 92 (70-105) 11/30/19 17:28 Calcium 9.6 mg/dL (8.4-10.2) 11/30/19 05:42 Troponin T < 0.010 ng/mL (0.00-0.029) 11/22/19 21:19 Triglycerides 112 mg/dL (2-149) 11/24/19 04:51 Cholesterol 165 mg/dL (50-199) 11/24/19 04:51 LDL Cholesterol Direct 115 mg/dL (50-130) 11/24/19 04:51 HDL Cholesterol 40 mg/dL (40-59) 11/24/19 04:51 Cholesterol/HDL Ratio 4.12 % 11/24/19 04:51 - Diagnostic Impressions Diagnostic Impressions: Echocardiogram 11/23/19 01:33 Transthoracic Echocardiogram Indication: Stroke BP: 117/80 HR: 59 Conclusions *The left ventricular size is moderate to severely dilated. *Mild to moderate concentric left ventricular hypertrophy is observed. *Global left ventricular systolic function is severely decreased. *The estimated ejection fraction is 25-30%. *The left atrium is mildly dilated. *There is mild mitral regurgitation. *There is trace tricuspid regurgitation. *A patent foramen ovale is not demonstrated by agitated saline contrast. Findings Left Ventricle: The left ventricular size is moderate to severely dilated. Mild to moderate concentric left ventricular hypertrophy is observed. Global left ventricular systolic function is severely decreased. The estimated ejection fraction is 25-30%. Left Atrium: The left atrium is mildly dilated. Right Ventricle: The right ventricular cavity size is normal. Right Atrium: The right atrial cavity size is normal. A patent foramen ovale is not demonstrated by agitated saline contrast. Aortic Valve: The aortic valve is trileaflet. The aortic valve leaflets are moderately thickened. There is no evidence of aortic regurgitation. There is no evidence of aortic stenosis. Mitral Valve: The mitral valve leaflets are mildly thickened. There is mild mitral regurgitation. There is no evidence of mitral stenosis. Tricuspid Valve: There is trace tricuspid regurgitation. No pulmonary hypertension is noted. Pulmonic Valve: There is trace pulmonic regurgitation. Pericardium: There is no pericardial effusion. Aorta: There is no dilatation of the ascending aorta. There is no dilatation of the aortic root. Venous: The inferior vena cava appears normal in size. Contrast: Intravenous agitated saline contrast was used to assess intracardiac shunting. Measurements Chambers 2D Name Value Normal Range IVSd (2D) 0.84 cm (0.6 - 1.1) LVPWd (2D) 0.72 cm (0.6 - 1.1) LVIDd (2D) 5.18 cm (3.7 - 5.6) LVIDs (2D) 4.28 cm (2 - 3.8) LV FS (2D) 17.42 % - EF Teichholz (2D) 36.07 % - Ao root diameter (2D) 3 cm (2 - 3.7) Volumes/Mass Name Value Normal Range LA ESV SP 4CH (A/L) 40.41 ml - LA ESV SP 2CH (A/L) 49.7 ml - LA ESV BP (A/L) 46.36 ml - LA ESV BP (A/L) index 21.77 ml/m2 - LA ESV SP 4CH (MOD) 37.38 ml - LA ESV SP 2CH (MOD) 46.48 ml - LA ESV BP (MOD) 43.09 ml - LA ESV BP (MOD) index 20.23 ml/m2 - LV EDV SP 4CH (MOD) 165.74 ml - LV ESV SP 4CH (MOD) 106.68 ml - EF SP 4CH (MOD) 35.63 % - LV EDV SP 2CH (MOD) 175.78 ml - LV ESV SP 2CH (MOD) 119.93 ml - EF SP 2CH (MOD) 31.77 % - LV EDV BP 174.71 ml - LV ESV BP 114.64 ml - BP EF (MOD) 34.38 % - Diastolic/Systolic Function Name Value Normal Range MV E-wave Vmax 0.5 m/sec - MV deceleration time 236.5 msec - MV A-wave Vmax 0.69 m/sec - MV E:A ratio 0.72 ratio - Aortic Valve Name Value Normal Range AV Vmax 0.81 m/sec - AV VTI 15.84 cm - AV peak gradient 2.61 mmHg - AV mean gradient 1.42 mmHg - LVOT diameter 2.14 cm - LVOT Vmax 0.71 m/sec - LVOT VTI 14.04 cm - LVOT peak gradient 2 mmHg - LVOT mean gradient 1.12 mmHg - SV LVOT 50.55 ml - ISAIAS (continuity Vmax) 3.15 cm2 - ISAIAS (continuity VTI) 3.19 cm2 - Ascending Ao 2.98 cm - Mitral Valve Name Value Normal Range MV Vmax 0.6 m/sec - MV VTI 19.86 cm - MV peak gradient 1.46 mmHg - MV mean gradient 0.56 mmHg - MV PHT 58.46 msec - MR Vmax 3.91 m/sec - MVA (PHT) 3.76 cm2 - MVA (continuity VTI) 2.54 cm2 - Tricuspid Valve Name Value Normal Range TR Vmax 2.07 m/sec - TR peak gradient 17 mmHg - RAP 3 mmHg - RVSP 20 mmHg - IVC diameter 0.98 cm (1.2 - 2.3) Pulmonic Valve/Qp:Qs Name Value Normal Range PV Vmax 0.73 m/sec - PV VTI 13.32 cm - PV peak gradient 2.15 mmHg - PV mean gradient 1.2 mmHg - RVOT Vmax 0.66 m/sec - RVOT VTI 11.66 cm - RVOT peak gradient 1.77 mmHg - Mejia/IV: Voiding Method Urinal IV Catheter Type [Right INT / Saline Lock Forearm] IV Catheter Type [Left Peripheral IV Antecubital] Active Medications - Current Medications Current Medications: Generic Name Dose Route Start Last Admin Trade Name Freq PRN Reason Stop Dose Admin Acetaminophen 650 mg 11/23/19 01:28 Tylenol PO Q4H PRN Pain, Mild (1-3) Aspirin 300 mg 11/23/19 10:00 12/01/19 13:25 Aspirin DE 300 mg QDAY YELENA Administration Atorvastatin Calcium 40 mg 11/23/19 22:00 11/30/19 21:38 Lipitor PO 40 mg QHS YELENA Administration Bisacodyl 10 mg 11/23/19 01:28 Dulcolax DE QDAY PRN Constipation Carvedilol 3.125 mg 11/26/19 22:00 12/01/19 11:09 Coreg PO 3.125 mg BID YELENA Administration Heparin Sodium (Porcine) 5,000 unit 11/23/19 08:00 12/01/19 13:25 Heparin SUB-Q 5,000 unit Q8HR YELENA Administration Lisinopril 2.5 mg 11/27/19 10:00 12/01/19 11:21 Zestril PO Not Given QDAY YELENA Magnesium Hydroxide 30 ml 11/23/19 01:28 Milk Of Magnesia PO Q4H PRN Constipation Metoclopramide HCl 10 mg 11/23/19 01:28 Reglan PO Q6H PRN Nausea And Vomiting Morphine Sulfate 2 mg 11/23/19 01:28 Morphine IV Q4H PRN Pain, Moderate (4-6) Ondansetron HCl 4 mg 11/23/19 01:28 Zofran IV Q8H PRN Nausea And Vomiting Promethazine HCl 25 mg 11/23/19 01:28 Phenergan DE Q6H PRN Nausea And Vomiting Sodium Chloride 10 ml 11/23/19 10:00 12/01/19 11:09 Sodium Chloride Flush Syringe 10 Ml IV 10 ml BID YELENA Administration Sodium Chloride 10 ml 11/23/19 01:28 Sodium Chloride Flush Syringe 10 Ml IV PRN PRN LINE FLUSH Spironolactone 25 mg 11/30/19 10:00 12/01/19 11:09 Aldactone PO 25 mg QDAY YELENA Administration Nutrition/Malnutrition Assess - Dietary Evaluation Nutrition/Malnutrition Findings: Nutrition Notes Start: 11/23/19 0 9:15 Freq: Status: Active Protocol: Document 11/30/19 13:46 LM (Rec: 11/30/19 14:05 LM [id number]) Nutrition Notes Initial or Follow up Assessment Other Pertinent Diagnosis CVA Current Diet [facility] soft with chopped meats with nectar-thick liquids Labs/Tests reviewed Pertinent Medications reviewed Height 6 ft Weight 76.2 kg [place] Body Weight (kg) 80.90 BMI 22.8 Weight change and time frame wt change noted. Pt appeared to be current wt Weight Status Appropriate Subjective/Other Information Pt was somewhat confused and did not make sense at times. Was able to make out that pt wants more vegetables and would like ONS. Pt did not eat breakfast. Burn Absent Trauma Absent Current % PO Poor (25-49%) Minimum of two criteria No physical signs of malnutrition #1 Nutrition Diagnosis Inadequate oral intake Etiology CVA As Evidenced by Signs and Symptoms pt not eaing breakfast Is Patient Ambulatory and/or Out of Bed No [place] [place]45.286 Calculation Used for Recommendations [facility] Additional Notes Pro needs 0.8-1g/k-76g/ day Fluid needs 1ml/kcal Nutrition Intervention Change Diet Order: continue Add Supplement/Snack (indicate name/kcal Ensure Enlive vanilla BID /protein ) CHILLED Provides kCal: 700 Provides Protein (gm) 40 Goal #1 Meet at least 75% of energy and protein needs Anticipated Discharge Needs: unable to determine at this time Follow-Up By: 12/02/19 Additional Comments F/U for PO/ONS intakes
[2019-12-02] MEDS: HEPARIN 5,000 UNIT/1 ML VIAL SUB-Q SCH ×3 (06:03→21:54)
--- NOTE | 2019-12-02 09:38 | Progress Note ---
Assessment and Plan Dilated Cardiomyopathy, uncertain duration Echo: LVEF 25-30%. Bubble study is negative. pt unable to provide hx due to confusion there are no tachyarrhythmias seen on telemetry thus far. Acute CVA Recommendations: Continue optimal medical therapy for dilated cardiomyopathy as tolerated. As outpatient, he may benefit from a 30-day event monitor for paroxysmal atrial tachyarrhythmias. Outpatient work-up with myocardial perfusion imaging for any ischemic basis of underlying left ventricular dysfunction. Subjective Date of service: 12/02/19 Principal diagnosis: Stroke Interval history: No interval cardiac changes. Objective Vital Signs Temp Pulse Pulse Resp BP Pulse Ox 12/01/19 23:45 98.0 F 69 18 93/51 97 12/01/19 22:55 60 12/01/19 22:07 61 127/70 12/01/19 22:00 61 18 100 12/01/19 20:38 98.0 F 61 18 127/70 100 12/01/19 20:08 65 12/01/19 15:35 98.0 F 66 20 93/55 100 12/01/19 11:09 64 102/64 12/01/19 11:06 98.1 F 64 20 102/64 97 12/01/19 10:00 58 L 18 - Physical Examination General: No Apparent Distress HEENT: Positive: PERRL Neck: Positive: trachea midline Cardiac: Positive: Reg Rate and Rhythm Extremities: Absent: edema
[2019-12-02] MEDS: carvediloL 3.125 MG TAB PO SCH ×2 (11:10→21:55)
[2019-12-02] MEDS: ASPIRIN 300 MG RECT SUPP PR SCH (11:10)
[2019-12-02] MEDS: SPIRONOLACTONE 25 MG TAB PO SCH (11:10)
[2019-12-02] MEDS: LISINOPRIL 5 MG TAB PO SCH (11:11)
--- NOTE | 2019-12-02 14:32 | Cat Scan Report ---
CT head/brain wo con INDICATION / CLINICAL INFORMATION: 59 years Male; CVA. TECHNIQUE: Routine CT head without contrast. All CT scans at this location are performed using CT dos e reduction for ALARA by means of automated exposure control. COMPARISON: The study is compared to the previous CT of 11/22/2019. FINDINGS: There is continued relative decreased attenuation involving the left frontal lobe including the operculum as well as the left insula compatible with evolving infarct at. There is now mild incr eased attenuation along the cortex at within the left frontal region compatible with developing satish ar necrosis. There is mild degree of mass effect and sulcal effacement and this region. The ventricular system appears unchanged in size and configuration. There is otherwise mild cerebral white matter disease most consistent with microvascular angiopathy at. ORBITS: No significant abnormality of visualized orbits. SINUSES / MASTOIDS: There is moderate mucosal thickening within the visualized right maxillary sinus with decreasing opacification from the prior study. A 1.5 cm retention cyst is seen within the visual ized left maxillary sinus. CRANIOCERVICAL JUNCTION: No significant abnormality. ADDITIONAL FINDINGS: None. IMPRESSION: 1. There are expected interval evolutionary changes of the infarct involving left frontal lobe and in sula from 11/22/2019 as detailed above. Signer Name: Dillan Dimas MD Signed: 12/02/2019 2:27 PM Workstation Name: [id number]
--- NOTE | 2019-12-02 18:25 | Progress Note ---
Assessment and Plan Assessment and plan: Hospital course [id number]--[place] male presenting to the emergency room today with a complaint of expressive aphasia and right-sided weakness. Patient was brought into the emergency room by EMS. He was said to have had a change in mental status and right-sided weakness witnessed by bystanders who indicated that symptoms may have started about 1800 today. Patient unable to give a very good history corresponds by nodding his head when asked questions. CT scan of the head was compatible with CVA.Tele neurologist was consulted. Initial recommendation was to transfer to another facility however final decision as taken by the neurologists and neurosurgeons was to monitor patient in this facility as patient does not need any urgent intervention. 11/28/2019. Await MRI and MARTIN. Continue Toprol and lisinopril. Awaiting placement. 11/29/2019. Await MRI and MARTIN. Will discuss with case management obtaining consent for MRI. Apparently, patient was unable to give consent when attempted on Friday. MARTIN per cardiology recommendations. Placement per PT recommendations. 11/29. Needs MARTIN. Mental health to evaluate. Tried some numbers he gave me today but no response. He may need a 2PC if he has no capacity. 11/30. Discussed with cardiology - his TTE was clear and did not show any clot so there is no need for a MARTIN. WIll update neurology. Still not able to get MRI brain as no family member has been contacted. 12/01. Neurology following. Added plavix 75 mg daily. He will be on aspirin 81 mg daily as well. Since we are not able to get an MRI brain, will order a repeat CT head. Assessment and Plan Left MCA CVA Carotid ultrasound reveals 50% stenosis bilaterally. MRI brain ordered but not able to fill the form due his mental status. No family has been reached as he is not able to produce contact numbers. Discussed with neurology, will get a repeat CT head. Advised adding plavix 75 mg daily and switch aspirin to 81 mg daily. Continue statins. Discussed with cardiology - no MARTIN indicated as TTE showed no clot. Dilated cardiomyopathy. Echocardiogram revealed left ventricular size moderate to severely dilated. Mild to moderate concentric left ventricular hypertrophy. Global left ventricular systolic function severely decreased with EF of 25%. Cardiology following; continue Toprol-XL and low-dose lisinopril.. History Interval history: See assessment and plan Hospitalist Physical - Constitutional Vitals: Temp Pulse Resp BP Pulse Ox 97.8 F 63 20 111/77 100 12/02/19 12:17 12/02/19 12:17 12/02/19 12:17 12/02/19 12:17 12/02/19 12:17 General appearance: Present: no acute distress - EENT Eyes: Present: PERRL - Neck Neck: Present: supple - Respiratory Respiratory: bilateral: CTA - Cardiovascular Heart Sounds: Present: S1 & S2 - Abdominal General gastrointestinal: soft, non-tender, non-distended - Neurologic Neurologic: CNII-XII intact HEART Score - HEART Score Troponin: Troponin T < 0.010 ng/mL (0.00-0.029) 11/22/19 21:19 Results - Labs CBC & Chem 7: 11/30/19 05:42 11/30/19 05:42 Labs: Laboratory Last Values WBC 6.2 K/mm3 (4.5-11.0) 11/30/19 05:42 RBC 4.81 M/mm3 (3.65-5.03) 11/30/19 05:42 Hgb 15.2 gm/dl (11.8-15.2) 11/30/19 05:42 Hct 45.3 % (35.5-45.6) 11/30/19 05:42 MCV 94 fl (84-94) 11/30/19 05:42 MCH 32 pg (28-32) 11/30/19 05:42 MCHC 34 % (32-34) 11/30/19 05:42 RDW 13.6 % (13.2-15.2) 11/30/19 05:42 Plt Count 287 K/mm3 (140-440) 11/30/19 05:42 Lymph % (Auto) 49.2 % (13.4-35.0) H 11/30/19 05:42 [place] % (Auto) 9.7 % (0.0-7.3) H 11/30/19 05:42 Eos % (Auto) 1.3 % (0.0-4.3) 11/30/19 05:42 Baso % (Auto) 0.9 % (0.0-1.8) 11/30/19 05:42 Lymph # 3.0 K/mm3 (1.2-5.4) 11/30/19 05:42 [place] # 0.6 K/mm3 (0.0-0.8) 11/30/19 05:42 Eos # 0.1 K/mm3 (0.0-0.4) 11/30/19 05:42 Baso # 0.1 K/mm3 (0.0-0.1) 11/30/19 05:42 Seg Neutrophils % 38.9 % (40.0-70.0) L 11/30/19 05:42 Seg Neutrophils # 2.4 K/mm3 (1.8-7.7) 11/30/19 05:42 PT 13.0 Sec. (12.2-14.9) 11/24/19 04:51 INR 0.97 (0.87-1.13) 11/24/19 04:51 APTT 25.6 Sec. (24.2-36.6) 11/22/19 21:19 Thrombin Time 16.5 Sec. (15.1-19.6) 11/22/19 21:19 Sodium 137 mmol/L (137-145) 11/30/19 05:42 Potassium 4.4 mmol/L (3.6-5.0) 11/30/19 05:42 Chloride 98.4 mmol/L (98-107) 11/30/19 05:42 Carbon Dioxide 28 mmol/L (22-30) 11/30/19 05:42 Anion Gap 15 mmol/L 11/30/19 05:42 BUN 9 mg/dL (9-20) 11/30/19 05:42 Creatinine 1.0 mg/dL (0.8-1.3) 11/30/19 05:42 Estimated GFR > 60 ml/min 11/30/19 05:42 BUN/Creatinine Ratio 9 % 11/30/19 05:42 Glucose 110 mg/dL (75-100) H 11/30/19 05:42 POC Glucose 92 (70-105) 11/30/19 17:28 Calcium 9.6 mg/dL (8.4-10.2) 11/30/19 05:42 Troponin T < 0.010 ng/mL (0.00-0.029) 11/22/19 21:19 Triglycerides 112 mg/dL (2-149) 11/24/19 04:51 Cholesterol 165 mg/dL (50-199) 11/24/19 04:51 LDL Cholesterol Direct 115 mg/dL (50-130) 11/24/19 04:51 HDL Cholesterol 40 mg/dL (40-59) 11/24/19 04:51 Cholesterol/HDL Ratio 4.12 % 11/24/19 04:51 - Diagnostic Impressions Diagnostic Impressions: Echocardiogram 11/23/19 01:33 Transthoracic Echocardiogram Indication: Stroke BP: 117/80 HR: 59 Conclusions *The left ventricular size is moderate to severely dilated. *Mild to moderate concentric left ventricular hypertrophy is observed. *Global left ventricular systolic function is severely decreased. *The estimated ejection fraction is 25-30%. *The left atrium is mildly dilated. *There is mild mitral regurgitation. *There is trace tricuspid regurgitation. *A patent foramen ovale is not demonstrated by agitated saline contrast. Findings Left Ventricle: The left ventricular size is moderate to severely dilated. Mild to moderate concentric left ventricular hypertrophy is observed. Global left ventricular systolic function is severely decreased. The estimated ejection fraction is 25-30%. Left Atrium: The left atrium is mildly dilated. Right Ventricle: The right ventricular cavity size is normal. Right Atrium: The right atrial cavity size is normal. A patent foramen ovale is not demonstrated by agitated saline contrast. Aortic Valve: The aortic valve is trileaflet. The aortic valve leaflets are moderately thickened. There is no evidence of aortic regurgitation. There is no evidence of aortic stenosis. Mitral Valve: The mitral valve leaflets are mildly thickened. There is mild mitral regurgitation. There is no evidence of mitral stenosis. Tricuspid Valve: There is trace tricuspid regurgitation. No pulmonary hypertension is noted. Pulmonic Valve: There is trace pulmonic regurgitation. Pericardium: There is no pericardial effusion. Aorta: There is no dilatation of the ascending aorta. There is no dilatation of the aortic root. Venous: The inferior vena cava appears normal in size. Contrast: Intravenous agitated saline contrast was used to assess intracardiac shunting. Measurements Chambers 2D Name Value Normal Range IVSd (2D) 0.84 cm (0.6 - 1.1) LVPWd (2D) 0.72 cm (0.6 - 1.1) LVIDd (2D) 5.18 cm (3.7 - 5.6) LVIDs (2D) 4.28 cm (2 - 3.8) LV FS (2D) 17.42 % - EF Teichholz (2D) 36.07 % - Ao root diameter (2D) 3 cm (2 - 3.7) Volumes/Mass Name Value Normal Range LA ESV SP 4CH (A/L) 40.41 ml - LA ESV SP 2CH (A/L) 49.7 ml - LA ESV BP (A/L) 46.36 ml - LA ESV BP (A/L) index 21.77 ml/m2 - LA ESV SP 4CH (MOD) 37.38 ml - LA ESV SP 2CH (MOD) 46.48 ml - LA ESV BP (MOD) 43.09 ml - LA ESV BP (MOD) index 20.23 ml/m2 - LV EDV SP 4CH (MOD) 165.74 ml - LV ESV SP 4CH (MOD) 106.68 ml - EF SP 4CH (MOD) 35.63 % - LV EDV SP 2CH (MOD) 175.78 ml - LV ESV SP 2CH (MOD) 119.93 ml - EF SP 2CH (MOD) 31.77 % - LV EDV BP 174.71 ml - LV ESV BP 114.64 ml - BP EF (MOD) 34.38 % - Diastolic/Systolic Function Name Value Normal Range MV E-wave Vmax 0.5 m/sec - MV deceleration time 236.5 msec - MV A-wave Vmax 0.69 m/sec - MV E:A ratio 0.72 ratio - Aortic Valve Name Value Normal Range AV Vmax 0.81 m/sec - AV VTI 15.84 cm - AV peak gradient 2.61 mmHg - AV mean gradient 1.42 mmHg - LVOT diameter 2.14 cm - LVOT Vmax 0.71 m/sec - LVOT VTI 14.04 cm - LVOT peak gradient 2 mmHg - LVOT mean gradient 1.12 mmHg - SV LVOT 50.55 ml - ISAIAS (continuity Vmax) 3.15 cm2 - ISAIAS (continuity VTI) 3.19 cm2 - Ascending Ao 2.98 cm - Mitral Valve Name Value Normal Range MV Vmax 0.6 m/sec - MV VTI 19.86 cm - MV peak gradient 1.46 mmHg - MV mean gradient 0.56 mmHg - MV PHT 58.46 msec - MR Vmax 3.91 m/sec - MVA (PHT) 3.76 cm2 - MVA (continuity VTI) 2.54 cm2 - Tricuspid Valve Name Value Normal Range TR Vmax 2.07 m/sec - TR peak gradient 17 mmHg - RAP 3 mmHg - RVSP 20 mmHg - IVC diameter 0.98 cm (1.2 - 2.3) Pulmonic Valve/Qp:Qs Name Value Normal Range PV Vmax 0.73 m/sec - PV VTI 13.32 cm - PV peak gradient 2.15 mmHg - PV mean gradient 1.2 mmHg - RVOT Vmax 0.66 m/sec - RVOT VTI 11.66 cm - RVOT peak gradient 1.77 mmHg - Mejia/IV: Voiding Method Urinal IV Catheter Type [Right INT / Saline Lock Forearm] IV Catheter Type [Left Peripheral IV Antecubital] Active Medications - Current Medications Current Medications: Generic Name Dose Route Start Last Admin Trade Name Freq PRN Reason Stop Dose Admin Acetaminophen 650 mg 11/23/19 01:28 Tylenol PO Q4H PRN Pain, Mild (1-3) Aspirin 300 mg 11/23/19 10:00 12/02/19 11:10 Aspirin NE 300 mg QDAY YELENA Administration Atorvastatin Calcium 40 mg 11/23/19 22:00 12/01/19 22:07 Lipitor PO 40 mg QHS YELENA Administration Bisacodyl 10 mg 11/23/19 01:28 Dulcolax NE QDAY PRN Constipation Carvedilol 3.125 mg 11/26/19 22:00 12/02/19 11:10 Coreg PO 3.125 mg BID YELENA Administration Heparin Sodium (Porcine) 5,000 unit 11/23/19 08:00 12/02/19 13:40 Heparin SUB-Q 5,000 unit Q8HR YELENA Administration Lisinopril 2.5 mg 11/27/19 10:00 12/02/19 11:11 Zestril PO 2.5 mg QDAY YELENA Administration Magnesium Hydroxide 30 ml 11/23/19 01:28 Milk Of Magnesia PO Q4H PRN Constipation Metoclopramide HCl 10 mg 11/23/19 01:28 Reglan PO Q6H PRN Nausea And Vomiting Morphine Sulfate 2 mg 11/23/19 01:28 Morphine IV Q4H PRN Pain, Moderate (4-6) Ondansetron HCl 4 mg 11/23/19 01:28 Zofran IV Q8H PRN Nausea And Vomiting Promethazine HCl 25 mg 11/23/19 01:28 Phenergan NE Q6H PRN Nausea And Vomiting Sodium Chloride 10 ml 11/23/19 10:00 12/02/19 11:11 Sodium Chloride Flush Syringe 10 Ml IV 10 ml BID YELENA Administration Sodium Chloride 10 ml 11/23/19 01:28 Sodium Chloride Flush Syringe 10 Ml IV PRN PRN LINE FLUSH Spironolactone 25 mg 11/30/19 10:00 12/02/19 11:10 Aldactone PO 25 mg QDAY YELENA Administration Nutrition/Malnutrition Assess - Dietary Evaluation Nutrition/Malnutrition Findings: Nutrition Notes Start: 11/23/19 09:15 Freq: Status: Active Protocol: Document 12/02/19 14:03 MALIK (Rec: 12/02/19 14:07 MALIK [email or web address]) Nutrition Notes Initial or Follow up Reassessment Current Diagnosis Stroke Other Pertinent Diagnosis Dilated cardiomyopathy Current Diet Cardiac mech soft Labs/Tests no current available Pertinent Medications reviewed Height 6 ft Weight 77.1 kg [place] Body Weight (kg) 80.90 BMI 23.0 Weight Status Appropriate Subjective/Other Information Spoke to pt via phone at 12:59 . He says he is tolerating PO intake; denies need for ONS at this time. He consumed 67% of meals yesterday. Burn Absent Trauma Absent Current % PO Fair (50-74%) #1 Nutrition Diagnosis Inadequate oral intake As Evidenced by Signs and Symptoms pt consuming >50% of meals Diagnosis Progress(for reassessment Improved documentation) Is patient on ventilator? No Is Patient Ambulatory and/or Out of Bed No REE-(Harlan-St. Jeor-confined to bed) 1959.444 Calculation Used for Recommendations Harlan-St Jeor Additional Notes Pro needs 0.8-1g/k-77g/ day Fluid needs 1ml/kcal Nutrition Intervention Change Diet Order: Continue current diet order Goal #1 PO intakes to meet at least 75 % energy and pro needs Follow-Up By: 12/07/19 Additional Comments F/U: intakes, wt
[2019-12-02] MEDS ORDERED: CLOPIDOGREL 75 MG TAB PO SCH (19:00)
[2019-12-03] MEDS: HEPARIN 5,000 UNIT/1 ML VIAL SUB-Q SCH ×3 (05:39→22:21)
[2019-12-03] MEDS ORDERED: REGADENOSON 0.4 MG/5 ML INJ IV ONE (08:22)
[2019-12-03] MEDS ORDERED: ASPIRIN EC 81 MG TAB PO SCH (10:00)
--- NOTE | 2019-12-03 10:37 | Progress Note ---
Assessment and Plan - Patient Problems (1) Dilated cardiomyopathy Current Visit: Yes Status: Acute Plan to address problem: Patient was admitted with a suspected CVA. Further evaluation here with an echocardiogram showed a dilated cardiomyopathy, chronicity and etiology both uncertain. Today, we have performed a Lexiscan thallium stress test, results are pending. As outpatient, we will plan a 30-day event monitor to evaluate for occult atrial tachyarrhythmias. Subjective Date of service: 12/03/19 Principal diagnosis: Stroke Interval history: Patient is comfortable, no acute distress, he underwent a Lexiscan thallium stress test today, results are pending. Objective Vital Signs Temp Pulse Resp BP BP Pulse Ox 12/03/19 04:54 97.4 F L 58 L 18 96/56 95 12/03/19 00:08 98.0 F 63 18 94/47 99 12/03/19 00:00 63 12/02/19 21:55 86/53 12/02/19 20:59 99.1 F 61 20 86/53 96 12/02/19 18:48 58 L 12/02/19 12:17 97.8 F 63 20 111/77 100 12/02/19 11:11 63 122/69 12/02/19 11:10 63 122/69 - Physical Examination General: No Apparent Distress HEENT: Positive: PERRL Neck: Positive: trachea midline Cardiac: Positive: Reg Rate and Rhythm Lungs: Positive: Decreased Breath Sounds Neuro: Positive: Grossly Intact Abdomen: Positive: Soft Skin: Positive: Clear Extremities: Absent: edema
[2019-12-03] MEDS: carvediloL 3.125 MG TAB PO SCH ×2 (11:00→22:18)
[2019-12-03] MEDS: CLOPIDOGREL 75 MG TAB PO SCH (11:00)
[2019-12-03] MEDS: SPIRONOLACTONE 25 MG TAB PO SCH (11:00)
[2019-12-03] MEDS: LISINOPRIL 5 MG TAB PO SCH (11:00)
[2019-12-03] MEDS: ASPIRIN EC 81 MG TAB PO SCH (11:01)
[2019-12-03] MEDS: ASPIRIN 300 MG RECT SUPP PR SCH (11:01)
--- NOTE | 2019-12-03 14:13 | Progress Note ---
Assessment and Plan Assessment and plan: Hospital course [id number]--[place] male presenting to the emergency room today with a complaint of expressive aphasia and right-sided weakness. Patient was brought into the emergency room by EMS. He was said to have had a change in mental status and right-sided weakness witnessed by bystanders who indicated that symptoms may have started about 1800 today. Patient unable to give a very good history corresponds by nodding his head when asked questions. CT scan of the head was compatible with CVA.Tele neurologist was consulted. Initial recommendation was to transfer to another facility however final decision as taken by the neurologists and neurosurgeons was to monitor patient in this facility as patient does not need any urgent intervention. 11/28/2019. Await MRI and MARTIN. Continue Toprol and lisinopril. Awaiting placement. 11/29/2019. Await MRI and MARTIN. Will discuss with case management obtaining consent for MRI. Apparently, patient was unable to give consent when attempted on Friday. MARTIN per cardiology recommendations. Placement per PT recommendations. 11/29. Needs MARTIN. Mental health to evaluate. Tried some numbers he gave me today but no response. He may need a 2PC if he has no capacity. 11/30. Discussed with cardiology - his TTE was clear and did not show any clot so there is no need for a MARTIN. WIll update neurology. Still not able to get MRI brain as no family member has been contacted. 12/01. Neurology following. Added plavix 75 mg daily. He will be on aspirin 81 mg daily as well. Since we are not able to get an MRI brain, will order a repeat CT head. 12/02. CT head 12/01 shows evolving infarct. Cardiology performed a stress test today. Results still pending. Assessment and Plan Left MCA CVA Carotid ultrasound reveals 50% stenosis bilaterally. MRI brain ordered but not able to fill the form due his mental status. No family has been reached as he is not able to produce contact numbers. Discussed with neurology, will get a repeat CT head. Advised adding plavix 75 mg daily and switch aspirin to 81 mg daily. Continue statins. Discussed with cardiology - no MARTIN indicated as TTE showed no clot. Dilated cardiomyopathy. Echocardiogram revealed left ventricular size moderate to severely dilated. Mild to moderate concentric left ventricular hypertrophy. Global left ventricular systolic function severely decreased with EF of 25%. Ca rdiology following; continue Toprol-XL and low-dose lisinopril. Stress test performed today Disposition - He will need placement but there is no family member contacted yet as he does not recall. CM/SW on the case. History Interval history: See assessment and plan Hospitalist Physical - Constitutional Vitals: Temp Pulse Resp BP Pulse Ox 99.0 F 61 18 112/72 100 12/03/19 10:57 12/03/19 10:58 12/03/19 10:57 12/03/19 10:57 12/03/19 10:58 General appearance: Present: no acute distress - EENT Eyes: Present: PERRL - Neck Neck: Present: supple, normal ROM - Respiratory Respiratory: bilateral: CTA - Abdominal General gastrointestinal: soft, non-tender, non-distended - Psychiatric Psychiatric: appropriate mood/affect - Neurologic Neurologic: CNII-XII intact HEART Score - HEART Score Troponin: Troponin T < 0.010 ng/mL (0.00-0.029) 11/22/19 21:19 Results - Labs CBC & Chem 7: 11/30/19 05:42 11/30/19 05:42 Labs: Laboratory Last Values WBC 6.2 K/mm3 (4.5-11.0) 11/30/19 05:42 RBC 4.81 M/mm3 (3.65-5.03) 11/30/19 05:42 Hgb 15.2 gm/dl (11.8-15.2) 11/30/19 05:42 Hct 45.3 % (35.5-45.6) 11/30/19 05:42 MCV 94 fl (84-94) 11/30/19 05:42 MCH 32 pg (28-32) 11/30/19 05:42 MCHC 34 % (32-34) 11/30/19 05:42 RDW 13.6 % (13.2-15.2) 11/30/19 05:42 Plt Count 287 K/mm3 (140-440) 11/30/19 05:42 Lymph % (Auto) 49.2 % (13.4-35.0) H 11/30/19 05:42 [place] % (Auto) 9.7 % (0.0-7.3) H 11/30/19 05:42 Eos % (Auto) 1.3 % (0.0-4.3) 11/30/19 05:42 Baso % (Auto) 0.9 % (0.0-1.8) 11/30/19 05:42 Lymph # 3.0 K/mm3 (1.2-5.4) 11/30/19 05:42 [place] # 0.6 K/mm3 (0.0-0.8) 11/30/19 05:42 Eos # 0.1 K/mm3 (0.0-0.4) 11/30/19 05:42 Baso # 0.1 K/mm3 (0.0-0.1) 11/30/19 05:42 Seg Neutrophils % 38.9 % (40.0-70.0) L 11/30/19 05:42 Seg Neutrophils # 2.4 K/mm3 (1.8-7.7) 11/30/19 05:42 PT 13.0 Sec. (12.2-14.9) 11/24/19 04:51 INR 0.97 (0.87-1.13) 11/24/19 04:51 APTT 25.6 Sec. (24.2-36.6) 11/22/19 21:19 Thrombin Time 16.5 Sec. (15.1-19.6) 11/22/19 21:19 Sodium 137 mmol/L (137-145) 11/30/19 05:42 Potassium 4.4 mmol/L (3.6-5.0) 11/30/19 05:42 Chloride 98.4 mmol/L (98-107) 11/30/19 05:42 Carbon Dioxide 28 mmol/L (22-30) 11/30/19 05:42 Anion Gap 15 mmol/L 11/30/19 05:42 BUN 9 mg/dL (9-20) 11/30/19 05:42 Creatinine 1.0 mg/dL (0.8-1.3) 11/30/19 05:42 Estimated GFR > 60 ml/min 11/30/19 05:42 BUN/Creatinine Ratio 9 % 11/30/19 05:42 Glucose 110 mg/dL (75-100) H 11/30/19 05:42 POC Glucose 92 (70-105) 11/30/19 17:28 Calcium 9.6 mg/dL (8.4-10.2) 11/30/19 05:42 Troponin T < 0.010 ng/mL (0.00-0.029) 11/22/19 21:19 Triglycerides 112 mg/dL (2-149) 11/24/19 04:51 Cholesterol 165 mg/dL (50-199) 11/24/19 04:51 LDL Cholesterol Direct 115 mg/dL (50-130) 11/24/19 04:51 HDL Cholesterol 40 mg/dL (40-59) 11/24/19 04:51 Cholesterol/HDL Ratio 4.12 % 11/24/19 04:51 - Diagnostic Impressions Diagnostic Impressions: Echocardiogram 11/23/19 01:33 Transthoracic Echocardiogram Indication: Stroke BP: 117/80 HR: 59 Conclusions *The left ventricular size is moderate to severely dilated. *Mild to moderate concentric left ventricular hypertrophy is observed. *Global left ventricular systolic function is severely decreased. *The estimated ejection fraction is 25-30%. *The left atrium is mildly dilated. *There is mild mitral regurgitation. *There is trace tricuspid regurgitation. *A patent foramen ovale is not demonstrated by agitated saline contrast. Findings Left Ventricle: The left ventricular size is moderate to severely dilated. Mild to moderate concentric left ventricular hypertrophy is observed. Global left ventricular systolic function is severely decreased. The estimated ejection fraction is 25-30%. Left Atrium: The left atrium is mildly dilated. Right Ventricle: The right ventricular cavity size is normal. Right Atrium: The right atrial cavity size is normal. A patent foramen ovale is not demonstrated by agitated saline contrast. Aortic Valve: The aortic valve is trileaflet. The aortic valve leaflets are moderately thickened. There is no evidence of aortic regurgitation. There is no evidence of aortic stenosis. Mitral Valve: The mitral valve leaflets are mildly thickened. There is mild mitral regurgitation. There is no evidence of mitral stenosis. Tricuspid Valve: There is trace tricuspid regurgitation. No pulmonary hypertension is noted. Pulmonic Valve: There is trace pulmonic regurgitation. Pericardium: There is no pericardial effusion. Aorta: There is no dilatation of the ascending aorta. There is no dilatation of the aortic root. Venous: The inferior vena cava appears normal in size. Contrast: Intravenous agitated saline contrast was used to assess intracardiac shunting. Measurements Chambers 2D Name Value Normal Range IVSd (2D) 0.84 cm (0.6 - 1.1) LVPWd (2D) 0.72 cm (0.6 - 1.1) LVIDd (2D) 5.18 cm (3.7 - 5.6) LVIDs (2D) 4.28 cm (2 - 3.8) LV FS (2D) 17.42 % - EF Teichholz (2D) 36.07 % - Ao root diameter (2D) 3 cm (2 - 3.7) Volumes/Mass Name Value Normal Range LA ESV SP 4CH (A/L) 40.41 ml - LA ESV SP 2CH (A/L) 49.7 ml - LA ESV BP (A/L) 46.36 ml - LA ESV BP (A/L) index 21.77 ml/m2 - LA ESV SP 4CH (MOD) 37.38 ml - LA ESV SP 2CH (MOD) 46.48 ml - LA ESV BP (MOD) 43.09 ml - LA ESV BP (MOD) index 20.23 ml/m2 - LV EDV SP 4CH (MOD) 165.74 ml - LV ESV SP 4CH (MOD) 106.68 ml - EF SP 4CH (MOD) 35.63 % - LV EDV SP 2CH (MOD) 175.78 ml - LV ESV SP 2CH (MOD) 119.93 ml - EF SP 2CH (MOD) 31.77 % - LV EDV BP 174.71 ml - LV ESV BP 114.64 ml - BP EF (MOD) 34.38 % - Diastolic/Systolic Function Name Value Normal Range MV E-wave Vmax 0.5 m/sec - MV deceleration time 236.5 msec - MV A-wave Vmax 0.69 m/sec - MV E:A ratio 0.72 ratio - Aortic Valve Name Value Normal Range AV Vmax 0.81 m/sec - AV VTI 15.84 cm - AV peak gradient 2.61 mmHg - AV mean gradient 1.42 mmHg - LVOT diameter 2.14 cm - LVOT Vmax 0.71 m/sec - LVOT VTI 14.04 cm - LVOT peak gradient 2 mmHg - LVOT mean gradient 1.12 mmHg - SV LVOT 50.55 ml - ISAIAS (continuity Vmax) 3.15 cm2 - ISAIAS (continuity VTI) 3.19 cm2 - Ascending Ao 2.98 cm - Mitral Valve Name Value Normal Range MV Vmax 0.6 m/sec - MV VTI 19.86 cm - MV peak gradient 1.46 mmHg - MV mean gradient 0.56 mmHg - MV PHT 58.46 msec - MR Vmax 3.91 m/sec - MVA (PHT) 3.76 cm2 - MVA (continuity VTI) 2.54 cm2 - Tricuspid Valve Name Value Normal Range TR Vmax 2.07 m/sec - TR peak gradient 17 mmHg - RAP 3 mmHg - RVSP 20 mmHg - IVC diameter 0.98 cm (1.2 - 2.3) Pulmonic Valve/Qp:Qs Name Value Normal Range PV Vmax 0.73 m/sec - PV VTI 13.32 cm - PV peak gradient 2.15 mmHg - PV mean gradient 1.2 mmHg - RVOT Vmax 0.66 m/sec - RVOT VTI 11.66 cm - RVOT peak gradient 1.77 mmHg - Mejia/IV: Voiding Method Urinal IV Catheter Type [Right INT / Saline Lock Forearm] IV Catheter Type [Left Peripheral IV Antecubital] Active Medications - Current Medications Current Medications: Generic Name Dose Route Start Last Admin Trade Name Freq PRN Reason Stop Dose Admin Acetaminophen 650 mg 11/23/19 01:28 12/03/19 11:06 Tylenol PO 650 mg Q4H PRN Administration Pain, Mild (1-3) Aspirin 81 mg 12/03/19 10:00 12/03/19 11:01 Halfprin Ec PO 81 mg QDAY YELENA Administration Atorvastatin Calcium 40 mg 11/23/19 22:00 12/02/19 21:55 Lipitor PO 40 mg QHS YELENA Administration Bisacodyl 10 mg 11/23/19 01:28 Dulcolax OH QDAY PRN Constipation Carvedilol 3.125 mg 11/26/19 22:00 12/03/19 11:00 Coreg PO 3.125 mg BID YELENA Administration Clopidogrel Bisulfate 75 mg 12/03/19 10:00 12/03/19 11:00 Plavix PO 75 mg QDAY YELENA Administration Heparin Sodium (Porcine) 5,000 unit 11/23/19 08:00 12/03/19 13:27 Heparin SUB-Q 5,000 unit Q8HR YELENA Administration Lisinopril 2.5 mg 11/27/19 10:00 12/03/19 11:00 Zestril PO 2.5 mg QDAY YELENA Administration Magnesium Hydroxide 30 ml 11/23/19 01:28 Milk Of Magnesia PO Q4H PRN Constipation Metoclopramide HCl 10 mg 11/23/19 01:28 Reglan PO Q6H PRN Nausea And Vomiting Morphine Sulfate 2 mg 11/23/19 01:28 Morphine IV Q4H PRN Pain, Moderate (4-6) Ondansetron HCl 4 mg 11/23/19 01:28 Zofran IV Q8H PRN Nausea And Vomiting Promethazine HCl 25 mg 11/23/19 01:28 Phenergan [place] Q6H PRN Nausea And Vomiting Sodium Chloride 10 ml 11/23/19 10:00 12/03/19 11:01 Sodium Chloride Flush Syringe 10 Ml IV 10 ml BID YELENA Administration Sodium Chloride 10 ml 11/23/19 01:28 Sodium Chloride Flush Syringe 10 Ml IV PRN PRN LINE FLUSH Spironolactone 25 mg 11/30/19 10:00 12/03/19 11:00 Aldactone PO 25 mg QDAY YELENA Administration Nutrition/Malnutrition Assess - Dietary Evaluation Nutrition/Malnutrition Findings: Nutrition Notes Start: 11/23/19 09:15 Freq: Status: Active Protocol: Document 12/02/19 14:03 MALIK (Rec: 12/02/19 14:07 MALIK [email or web address]) Nutrition Notes Initial or Follow up Reassessment Current Diagnosis Stroke Other Pertinent Diagnosis Dilated cardiomyopathy Current Diet Cardiac mech soft Labs/Tests no current available Pertinent Medications reviewed Height 6 ft Weight 77.1 kg [place] Body Weight (kg) 80.90 BMI 23.0 Weight Status Appropriate Subjective/Other Information Spoke to pt via phone at 12:59 . He says he is tolerating PO intake; denies need for ONS at this time. He consumed 67% of meals yesterday. Burn Absent Trauma Absent Current % PO Fair (50-74%) #1 Nutrition Diagnosis Inadequate oral intake As Evidenced by Signs and Symptoms pt consuming >50% of meals Diagnosis Progress(for reassessment Improved documentation) Is patient on ventilator? No Is Patient Ambulatory and/or Out of Bed No REE-([facility]-confined to bed) 1959.444 Calculation [facility] for Recommendations [facility] Additional Notes Pro needs 0.8-1g/k-77g/ day Fluid needs 1ml/kcal Nutrition Intervention Change Diet Order: Continue current diet order Goal #1 PO intakes to meet at least 75 % energy and pro needs Follow-Up By: 12/07/19 Additional Comments F/U: intakes, wt
--- NOTE | 2019-12-03 14:50 | Treadmill Report ---
THALLIUM STRESS TEST LEFT VENTRICLE: Left ventricle is moderately dilated. The perfusion scan demonstrates a large, fixed inferior and posterolateral wall defect. On the resting study, there is no reversibility. Gated analysis demonstrates moderately severe left ventricular systolic dysfunction with ejection fraction 34%. CONCLUSION: Evidence of dilated ischemic cardiomyopathy, previous large infarct in the inferior and posterolateral [place]. There is no significant [place]roy-infarct ischemia demonstrated. Clinical correlation is recommended. JOB# [id number] CA/NTS
--- NOTE | 2019-12-03 17:45 | Progress Note ---
Assessment and Plan rule out left frontal stroke. unkown risk factor. cta- left mca high grade stenosis. pt. was seen by tele neuro in ED. time of onset unknown. cta- neck- unremarkable. eho- left ventricle dilated- ef- 25-30%. ct brain- 12/01- reported by radiology- showing left frontal stroke. i reviewed the images of ct brain-- i could not appreciate ischemia in [facility] PACS. plan- cont. asa 325 mg q day and lipitor 80 mg q hs. -crow. -loop front desk monitor. MRI brain still need to be done. -mental health evaluation deemed that patient cannot take decisions. normotensiive now. thanks. Subjective Principal diagnosis: Stroke Interval history: TELE NEUROLOGY CONSULT. alert today. better than yesterday. Objective - Exam Narrative Exam: Neurology examination: MS- more alert awake. he can tell his name. lang- naming impaired- also repetition much better today. cn- eomi- possible right central facial paresis. m- no right arm drift today and also right leg drift. Laboratory Results - last 72 hr 11/22/19 11/22/19 11/22/19 21:19 21:19 21:19 WBC 8.9 RBC 4.07 Hgb 13.3 Hct 38.7 MCV 95 H MCH 33 H MCHC 35 H RDW 13.9 Plt Count 299 Lymph % (Auto) 32.6 [place] % (Auto) 10.1 H Eos % (Auto) 0.6 Baso % (Auto) 0.7 Lymph # 2.9 [place] # 0.9 H Eos # 0.0 Baso # 0.1 Seg Neutrophils % 56.0 Seg Neutrophils # 5.0 PT 13.7 INR 1.04 APTT 25.6 Thrombin Time Sodium 134 L Potassium 4.6 Chloride 100.4 Carbon Dioxide 24 Anion Gap 14 BUN 13 Creatinine 1.2 Estimated GFR > 60 BUN/Creatinine Ratio 11 Glucose 108 H Calcium 9.0 Troponin T < 0.010 11/22/19 21:19 WBC RBC Hgb Hct MCV MCH MCHC RDW Plt Count Lymph % (Auto) [place] % (Auto) Eos % (Auto) Baso % (Auto) Lymph # [place] # Eos # Baso # Seg Neutrophils % Seg Neutrophils # PT INR APTT Thrombin Time 16.5 Sodium Potassium Chloride Carbon Dioxide Anion Gap BUN Creatinine Estimated GFR BUN/Creatinine Ratio Glucose Calcium Troponin T - Vital Sign Vital Signs - 12hr 12/03/19 12/03/19 12/03/19 08:57 09:05 09:45 Temperature Pulse Rate Respiratory Rate Blood Pressure 98/64 91/62 95/62 O2 Sat by Pulse Oximetry 12/03/19 12/03/19 12/03/19 09:46 09:47 10:57 Temperature 99.0 F Pulse Rate Respiratory 18 Rate Blood Pressure 89/55 104/66 112/72 O2 Sat by Pulse Oximetry 12/03/19 12/03/19 10:58 16:31 Temperature 98.1 F Pulse Rate 61 60 Respiratory 18 Rate Blood Pressure 99/61 O2 Sat by Pulse 100 95 Oximetry - Laboratory Findings CBC and BMP: 11/30/19 05:42 11/30/19 05:42 Abnormal Lab Findings: Abnormal Labs 11/22/19 11/22/19 11/24/19 21:19 21:19 04:51 MCV 95 H MCH 33 H MCHC 35 H 35 H Lymph % (Auto) 44.0 H [place] % (Auto) 10.1 H 10.0 H [place] # 0.9 H Seg Neutrophils % Sodium 134 L Glucose 108 H POC Glucose 11/24/19 11/25/19 11/25/19 20:20 08:49 13:21 MCV MCH MCHC Lymph % (Auto) [place] % (Auto) [place] # Seg Neutrophils % Sodium Glucose POC Glucose 129 H 123 H 111 H 11/26/19 11/26/19 11/30/19 07:49 11:50 05:42 MCV MCH MCHC Lymph % (Auto) 49.2 H [place] % (Auto) 9.7 H [place] # Seg Neutrophils % 38.9 L Sodium Glucose POC Glucose 107 H 133 H 11/30/19 05:42 MCV MCH MCHC Lymph % (Auto) [place] % (Auto) [place] # Seg Neutrophils % Sodium Glucose 110 H POC Glucose
[2019-12-04] MEDS: HEPARIN 5,000 UNIT/1 ML VIAL SUB-Q SCH ×3 (06:35→21:45)
--- NOTE | 2019-12-04 10:13 | Progress Note ---
Assessment and Plan Assessment and plan: Hospital course [id number]--Citizen Of [place] male presenting to the emergency room today with a complaint of expressive aphasia and right-sided weakness. Patient was brought into the emergency room by EMS. He was said to have had a change in mental status and right-sided weakness witnessed by bystanders who indicated that symptoms may have started about 1800 today. Patient unable to give a very good history corresponds by nodding his head when asked questions. CT scan of the head was compatible with CVA.Tele neurologist was consulted. Initial recommendation was to transfer to another facility however final decision as taken by the neurologists and neurosurgeons was to monitor patient in this facility as patient does not need any urgent intervention. 11/28/2019. Await MRI and MARTIN. Continue Toprol and lisinopril. Awaiting placement. 11/29/2019. Await MRI and MARTIN. Will discuss with case management obtaining consent for MRI. Apparently, patient was unable to give consent when attempted on Friday. MARTIN per cardiology recommendations. Placement per PT recommendations. 11/29. Needs MARTIN. Mental health to evaluate. Tried some numbers he gave me today but no response. He may need a 2PC if he has no capacity. 11/30. Discussed with cardiology - his TTE was clear and did not show any clot so there is no need for a MARTIN. WIll update neurology. Still not able to get MRI brain as no family member has been contacted. 12/01. Neurology following. Added plavix 75 mg daily. He will be on aspirin 81 mg daily as well. Since we are not able to get an MRI brain, will order a repeat CT head. 12/02. CT head 12/01 shows evolving infarct. Cardiology performed a stress test today. Results still pending. 12/03. Has no complaints today. Cardiology following. Assessment and Plan Left MCA CVA Carotid ultrasound reveals 50% stenosis bilaterally. MRI brain ordered but not able to fill the form due his mental status. No family has been reached as he is not able to produce contact numbers. Discussed with neurology. Repeat CT head shows infarct Advised adding plavix 75 mg daily and switch aspirin to 81 mg daily. Continue statins. Discussed with cardiology - no MARTIN indicated as TTE showed no clot. Dilated cardiomyopathy. Echocardiogram revealed left ventricular size moderate to severely dilated. Mild to moderate concentric left ventricular hypertrophy. Global left ventricular systolic function severely decreased with EF of 25%. Cardiology following; continue Toprol-XL and low-dose lisinopril. Stress test performed 12/02. Results pending Disposition - He will need placement but there is no family member contacted yet as he does not recall. CM/SW on the case. History Interval history: See assessment and plan Hospitalist Physical - Constitutional Vitals: Temp Pulse Resp BP Pulse Ox 98.7 F 76 18 90/52 97 12/04/19 09:19 12/04/19 09:19 12/04/19 09:19 12/04/19 09:19 12/04/19 09:19 General appearance: Present: no acute distress - EENT Eyes: Present: PERRL - Neck Neck: Present: supple - Respiratory Respiratory effort: normal Respiratory: bilateral: CTA - Cardiovascular Rhythm: regular Heart Sounds: Present: S1 & S2 - Extremities Extremities: no ischemia, No edema - Abdominal General gastrointestinal: soft, non-tender, non-distended - Neurologic Neurologic: CNII-XII intact HEART Score - HEART Score Troponin: Troponin T < 0.010 ng/mL (0.00-0.029) 11/22/19 21:19 Results - Labs CBC & Chem 7: 11/30/19 05:42 11/30/19 05:42 Labs: Laboratory Last Values WBC 6.2 K/mm3 (4.5-11.0) 11/30/19 05:42 RBC 4.81 M/mm3 (3.65-5.03) 11/30/19 05:42 Hgb 15.2 gm/dl (11.8-15.2) 11/30/19 05:42 Hct 45.3 % (35.5-45.6) 11/30/19 05:42 MCV 94 fl (84-94) 11/30/19 05:42 MCH 32 pg (28-32) 11/30/19 05:42 MCHC 34 % (32-34) 11/30/19 05:42 RDW 13.6 % (13.2-15.2) 11/30/19 05:42 Plt Count 287 K/mm3 (140-440) 11/30/19 05:42 Lymph % (Auto) 49.2 % (13.4-35.0) H 11/30/19 05:42 [place] % (Auto) 9.7 % (0.0-7.3) H 11/30/19 05:42 Eos % (Auto) 1.3 % (0.0-4.3) 11/30/19 05:42 Baso % (Auto) 0.9 % (0.0-1.8) 11/30/19 05:42 Lymph # 3.0 K/mm3 (1.2-5.4) 11/30/19 05:42 [place] # 0.6 K/mm3 (0.0-0.8) 11/30/19 05:42 Eos # 0.1 K/mm3 (0.0-0.4) 11/30/19 05:42 Baso # 0.1 K/mm3 (0.0-0.1) 11/30/19 05:42 Seg Neutrophils % 38.9 % (40.0-70.0) L 11/30/19 05:42 Seg Neutrophils # 2.4 K/mm3 (1.8-7.7) 11/30/19 05:42 PT 13.0 Sec. (12.2-14.9) 11/24/19 04:51 INR 0.97 (0.87-1.13) 11/24/19 04:51 APTT 25.6 Sec. (24.2-36.6) 11/22/19 21:19 Thrombin Time 16.5 Sec. (15.1-19.6) 11/22/19 21:19 Sodium 137 mmol/L (137-145) 11/30/19 05:42 Potassium 4.4 mmol/L (3.6-5.0) 11/30/19 05:42 Chloride 98.4 mmol/L (98-107) 11/30/19 05:42 Carbon Dioxide 28 mmol/L (22-30) 11/30/19 05:42 Anion Gap 15 mmol/L 11/30/19 05:42 BUN 9 mg/dL (9-20) 11/30/19 05:42 Creatinine 1.0 mg/dL (0.8-1.3) 11/30/19 05:42 Estimated GFR > 60 ml/min 11/30/19 05:42 BUN/Creatinine Ratio 9 % 11/30/19 05:42 Glucose 110 mg/dL (75-100) H 11/30/19 05:42 POC Glucose 92 (70-105) 11/30/19 17:28 Calcium 9.6 mg/dL (8.4-10.2) 11/30/19 05:42 Troponin T < 0.010 ng/mL (0.00-0.029) 11/22/19 21:19 Triglycerides 112 mg/dL (2-149) 11/24/19 04:51 Cholesterol 165 mg/dL (50-199) 11/24/19 04:51 LDL Cholesterol Direct 115 mg/dL (50-130) 11/24/19 04:51 HDL Cholesterol 40 mg/dL (40-59) 11/24/19 04:51 Cholesterol/HDL Ratio 4.12 % 11/24/19 04:51 - Diagnostic Impressions Diagnostic Impressions: Echocardiogram 11/23/19 01:33 Transthoracic Echocardiogram Indication: Stroke BP: 117/80 HR: 59 Conclusions *The left ventricular size is moderate to severely dilated. *Mild to moderate concentric left ventricular hypertrophy is observed. *Global left ventricular systolic function is severely decreased. *The estimated ejection fraction is 25-30%. *The left atrium is mildly dilated. *There is mild mitral regurgitation. *There is trace tricuspid regurgitation. *A patent foramen ovale is not demonstrated by agitated saline contrast. Findings Left Ventricle: The left ventricular size is moderate to severely dilated. Mild to moderate concentric left ventricular hypertrophy is observed. Global left ventricular systolic function is severely decreased. The estimated ejection fraction is 25-30%. Left Atrium: The left atrium is mildly dilated. Right Ventricle: The right ventricular cavity size is normal. Right Atrium: The right atrial cavity size is normal. A patent foramen ovale is not demonstrated by agitated saline contrast. Aortic Valve: The aortic valve is trileaflet. The aortic valve leaflets are moderately thickened. There is no evidence of aortic regurgitation. There is no evidence of aortic stenosis. Mitral Valve: The mitral valve leaflets are mildly thickened. There is mild mitral regurgitation. There is no evidence of mitral stenosis. Tricuspid Valve: There is trace tricuspid regurgitation. No pulmonary hypertension is noted. Pulmonic Valve: There is trace pulmonic regurgitation. Pericardium: There is no pericardial effusion. Aorta: There is no dilatation of the ascending aorta. There is no dilatation of the aortic root. Venous: The inferior vena cava appears normal in size. Contrast: Intravenous agitated saline contrast was used to assess intracardiac shunting. Measurements Chambers 2D Name Value Normal Range IVSd (2D) 0.84 cm (0.6 - 1.1) LVPWd (2D) 0.72 cm (0.6 - 1.1) LVIDd (2D) 5.18 cm (3.7 - 5.6) LVIDs (2D) 4.28 cm (2 - 3.8) LV FS (2D) 17.42 % - EF Teichholz (2D) 36.07 % - Ao root diameter (2D) 3 cm (2 - 3.7) Volumes/Mass Name Value Normal Range LA ESV SP 4CH (A/L) 40.41 ml - LA ESV SP 2CH (A/L) 49.7 ml - LA ESV BP (A/L) 46.36 ml - LA ESV BP (A/L) index 21.77 ml/m2 - LA ESV SP 4CH (MOD) 37.38 ml - LA ESV SP 2CH (MOD) 46.48 ml - LA ESV BP (MOD) 43.09 ml - LA ESV BP (MOD) index 20.23 ml/m2 - LV EDV SP 4CH (MOD) 165.74 ml - LV ESV SP 4CH (MOD) 106.68 ml - EF SP 4CH (MOD) 35.63 % - LV EDV SP 2CH (MOD) 175.78 ml - LV ESV SP 2CH (MOD) 119.93 ml - EF SP 2CH (MOD) 31.77 % - LV EDV BP 174.71 ml - LV ESV BP 114.64 ml - BP EF (MOD) 34.38 % - Diastolic/Systolic Function Name Value Normal Range MV E-wave Vmax 0.5 m/sec - MV deceleration time 236.5 msec - MV A-wave Vmax 0.69 m/sec - MV E:A ratio 0.72 ratio - Aortic Valve Name Value Normal Range AV Vmax 0.81 m/sec - AV VTI 15.84 cm - AV peak gradient 2.61 mmHg - AV mean gradient 1.42 mmHg - LVOT diameter 2.14 cm - LVOT Vmax 0.71 m/sec - LVOT VTI 14.04 cm - LVOT peak gradient 2 mmHg - LVOT mean gradient 1.12 mmHg - SV LVOT 50.55 ml - ISAIAS (continuity Vmax) 3.15 cm2 - ISAIAS (continuity VTI) 3.19 cm2 - Ascending Ao 2.98 cm - Mitral Valve Name Value Normal Range MV Vmax 0.6 m/sec - MV VTI 19.86 cm - MV peak gradient 1.46 mmHg - MV mean gradient 0.56 mmHg - MV PHT 58.46 msec - MR Vmax 3.91 m/sec - MVA (PHT) 3.76 cm2 - MVA (continuity VTI) 2.54 cm2 - Tricuspid Valve Name Value Normal Range TR Vmax 2.07 m/sec - TR peak gradient 17 mmHg - RAP 3 mmHg - RVSP 20 mmHg - IVC diameter 0.98 cm (1.2 - 2.3) Pulmonic Valve/Qp:Qs Name Value Normal Range PV Vmax 0.73 m/sec - PV VTI 13.32 cm - PV peak gradient 2.15 mmHg - PV mean gradient 1.2 mmHg - RVOT Vmax 0.66 m/sec - RVOT VTI 11.66 cm - RVOT peak gradient 1.77 mmHg - Mejia/IV: Voiding Method Toilet IV Catheter Type [Right INT / Saline Lock Forearm] IV Catheter Type [Left Peripheral IV Antecubital] Active Medications - Current Medications Current Medications: Generic Name Dose Route Start Last Admin Trade Name Freq PRN Reason Stop Dose Admin Acetaminophen 650 mg 11/23/19 01:28 12/03/19 11:06 Tylenol PO 650 mg Q4H PRN Administration Pain, Mild (1-3) Aspirin 81 mg 12/03/19 10:00 12/03/19 11:01 Halfprin Ec PO 81 mg QDAY YELENA Administration Atorvastatin Calcium 40 mg 11/23/19 22:00 12/03/19 22:18 Lipitor PO 40 mg QHS YELENA Administration Bisacodyl 10 mg 11/23/19 01:28 Dulcolax IA QDAY PRN Constipation Carvedilol 3.125 mg 11/26/19 22:00 12/03/19 22:18 Coreg PO 3.125 mg BID YELENA Administration Clopidogrel Bisulfate 75 mg 12/03/19 10:00 12/03/19 11:00 Plavix PO 75 mg QDAY YELENA Administration Heparin Sodium (Porcine) 5,000 unit 11/23/19 08:00 12/04/19 06:35 Heparin SUB-Q 5,000 unit Q8HR YELENA Administration Lisinopril 2.5 mg 11/27/19 10:00 12/03/19 11:00 Zestril PO 2.5 mg QDAY YELENA Administration Magnesium Hydroxide 30 ml 11/23/19 01:28 Milk Of Magnesia PO Q4H PRN Constipation Metoclopramide HCl 10 mg 11/23/19 01:28 Reglan PO Q6H PRN Nausea And Vomiting Morphine Sulfate 2 mg 11/23/19 01:28 Morphine IV Q4H PRN Pain, Moderate (4-6) Ondansetron HCl 4 mg 11/23/19 01:28 Zofran IV Q8H PRN Nausea And Vomiting Promethazine HCl 25 mg 11/23/19 01:28 Phenergan IA Q6H PRN Nausea And Vomiting Sodium Chloride 10 ml 11/23/19 10:00 12/03/19 22:21 Sodium Chloride Flush Syringe 10 Ml IV 10 ml BID YELENA Administration Sodium Chloride 10 ml 11/23/19 01:28 Sodium Chloride Flush Syringe 10 Ml IV PRN PRN LINE FLUSH Spironolactone 25 mg 11/30/19 10:00 12/03/19 11:00 Aldactone PO 25 mg QDAY YELENA Administration Nutrition/Malnutrition Assess - Dietary Evaluation Nutrition/Malnutrition Findings: Nutrition Notes Start: 11/23/19 09:15 Freq: Status: Active Protocol: Document 12/02/19 14:03 MALIK (Rec: 12/02/19 14:07 MALIK [email or web address] [email or web address]) Nutrition Notes Initial or Follow up Reassessment Current Diagnosis Stroke Other Pertinent Diagnosis Dilated cardiomyopathy Current Diet Cardiac [facility] soft Labs/Tests no current available Pertinent Medications reviewed Height 6 ft Weight 77.1 kg [place] Body Weight (kg) 80.90 BMI 23.0 Weight Status Appropriate Subjective/Other Information Spoke to pt via phone at 12:59 . He says he is tolerating PO intake; denies need for ONS at this time. He consumed 67% of meals yesterday. Burn Absent Trauma Absent Current % PO Fair (50-74%) #1 Nutrition Diagnosis Inadequate oral intake As Evidenced by Signs and Symptoms pt consuming >50% of meals Diagnosis Progress(for reassessment Improved documentation) Is patient on ventilator? No Is Patient Ambulatory and/or Out of Bed No REE-(Rains-St. Jeor-confined to bed) 9.444 Calculation [facility]ations [facility] or Additional Notes Pro needs 0.8-1g/k-77g/ day Fluid needs 1ml/kcal Nutrition Intervention Change Diet Order: Continue current diet order Goal #1 PO intakes to meet at least 75 % energy and pro needs Follow-Up By: 12/07/19 Additional Comments F/U: intakes, wt
--- NOTE | 2019-12-04 10:26 | Progress Note ---
Assessment and Plan Dilated Cardiomyopathy, uncertain duration and newly diagnosed Presumed ischemic as MPI consistent with large prior infarct with no signif icant ischemia Echo: LVEF 25-30%. Bubble study is negative. pt unable to provide hx due to confusion No significant arrhythmias seen on telemetry thus far. Acute CVA (reason for presentation) Recommend: Continue current GDMT for newly diagnosed cardiomyopathy Outpatient event monitoring/ILR implant and f/u with cardiology Subjective Date of service: 12/04/19 Principal diagnosis: Stroke Interval history: No acute events Objective Vital Signs Temp Pulse Resp BP Pulse Ox 12/04/19 09:19 98.7 F 76 18 90/52 97 12/04/19 03:33 98.0 F 81 18 102/66 99 12/04/19 00:25 98.0 F 77 18 95/53 97 12/03/19 22:18 65 100/62 12/03/19 19:49 67 12/03/19 19:21 99.6 F 59 L 18 100/62 98 12/03/19 16:31 98.1 F 60 18 99/61 95 12/03/19 10:58 61 100 12/03/19 10:57 99.0 F 18 112/72 - Physical Examination General: No Apparent Distress HEENT: Positive: PERRL Neck: Positive: trachea midline Cardiac: Positive: Reg Rate and Rhythm Lungs: Positive: clear to auscultation Abdomen: Positive: Soft Skin: Positive: Clear Extremities: Absent: edema
[2019-12-04] MEDS: SPIRONOLACTONE 25 MG TAB PO SCH (10:50)
[2019-12-04] MEDS: carvediloL 3.125 MG TAB PO SCH ×2 (10:50→21:44)
[2019-12-04] MEDS: ASPIRIN EC 81 MG TAB PO SCH (10:50)
[2019-12-04] MEDS: CLOPIDOGREL 75 MG TAB PO SCH (10:50)
[2019-12-04] MEDS: LISINOPRIL 5 MG TAB PO SCH (10:50)
[2019-12-05] MEDS: HEPARIN 5,000 UNIT/1 ML VIAL SUB-Q SCH ×3 (05:10→21:22)
--- NOTE | 2019-12-05 10:09 | Progress Note ---
Assessment and Plan Dilated Cardiomyopathy, uncertain duration and newly diagnosed Presumed ischemic as MPI consistent with large prior infarct with no signif icant ischemia Echo: LVEF 25-30%. Bubble study is negative. pt unable to provide hx due to confusion No significant arrhythmias seen on telemetry thus far. Acute CVA (reason for presentation) Recommend: Continue current GDMT for newly diagnosed cardiomyopathy Outpatient event monitoring/ILR implant and f/u with cardiology Subjective Date of service: 12/05/19 Principal diagnosis: Stroke Interval history: No acute events Objective Vital Signs Temp Pulse Resp BP BP Pulse Ox 12/05/19 04:26 98.7 F 54 L 20 102/48 98 12/05/19 00:43 98.4 F 71 20 76/51 97 12/04/19 22:00 60 20 12/04/19 19:36 97.9 F 64 20 111/67 99 12/04/19 17:17 98.0 F 85 18 115/77 96 12/04/19 17:01 97.8 F 88 18 124/64 98 12/04/19 16:38 97.8 F 86 16 95/46 12/04/19 16:35 94.8 F L 65 18 95/46 99 12/04/19 14:00 74 12/04/19 13:28 98.5 F 74 18 85/42 98 - Physical Examination General: No Apparent Distress HEENT: Positive: PERRL Neck: Positive: trachea midline Cardiac: Positive: Reg Rate and Rhythm Lungs: Positive: clear to auscultation Neuro: Positive: Grossly Intact Abdomen: Positive: Soft Skin: Positive: Clear Extremities: Absent: edema
[2019-12-05] MEDS: CLOPIDOGREL 75 MG TAB PO SCH (10:36)
[2019-12-05] MEDS: carvediloL 3.125 MG TAB PO SCH ×2 (10:36→21:22)
[2019-12-05] MEDS: ASPIRIN EC 81 MG TAB PO SCH (10:36)
[2019-12-05] MEDS: LISINOPRIL 5 MG TAB PO SCH (10:36)
[2019-12-05] MEDS: SPIRONOLACTONE 25 MG TAB PO SCH (10:36)
[2019-12-06] MEDS: HEPARIN 5,000 UNIT/1 ML VIAL SUB-Q SCH ×3 (06:16→21:59)
--- NOTE | 2019-12-06 07:54 | Progress Note ---
Assessment and Plan Assessment and plan: Hospital course [id number]--[place] male presenting to the emergency room today with a complaint of expressive aphasia and right-sided weakness. Patient was brought into the emergency room by EMS. He was said to have had a change in mental status and right-sided weakness witnessed by bystanders who indicated that symptoms may have started about 1800 today. Patient unable to give a very good history corresponds by nodding his head when asked questions. CT scan of the head was compatible with CVA.Tele neurologist was consulted. Initial recommendation was to transfer to another facility however final decision as taken by the neurologists and neurosurgeons was to monitor patient in this facility as patient does not need any urgent intervention. 11/28/2019. Await MRI and MARTIN. Continue Toprol and lisinopril. Awaiting placement. 11/29/2019. Await MRI and MARTIN. Will discuss with case management obtaining consent for MRI. Apparently, patient was unable to give consent when attempted on Friday. MARTIN per cardiology recommendations. Placement per PT recommendations. 11/29. Needs MARTIN. Mental health to evaluate. Tried some numbers he gave me today but no response. He may need a 2PC if he has no capacity. 11/30. Discussed with cardiology - his TTE was clear and did not show any clot so there is no need for a MARTIN. WIll update neurology. Still not able to get MRI brain as no family member has been contacted. 12/01. Neurology following. Added plavix 75 mg daily. He will be on aspirin 81 mg daily as well. Since we are not able to get an MRI brain, will order a repeat CT head. 12/02. CT head 12/01 shows evolving infarct. Cardiology performed a stress test today. Results still pending. 12/03. Has no complaints today. Cardiology following. 12/04. No change in condition. DC planning Assessment and Plan Left MCA CVA Carotid ultrasound reveals 50% stenosis bilaterally. MRI brain ordered but not able to fill the form due his mental status. No family has been reached as he is not able to produce contact numbers. Discussed with neurology. Repeat CT head shows infarct Advised adding plavix 75 mg daily and switch aspirin to 81 mg daily. Continue statins. Discussed with cardiology - no MARTIN indicated as TTE showed no clot. Dilated cardiomyopathy. Echocardiogram revealed left ventricular size moderate to severely dilated. Mild to moderate concentric left ventricular hypertrophy. Global left ventricular systolic function severely decreased with EF of 25%. Cardiology following; continue Toprol-XL and low-dose lisinopril. Stress test performed 12/02- no reversible ischemia Disposition - He will need placement but there is no family member contacted yet as he does not recall. CM/GEOVANNY on the case. History Interval history: See assessment and plan Hospitalist Physical - Constitutional Vitals: Temp Pulse Resp BP Pulse Ox 98.5 F 63 18 102/57 97 12/06/19 03:56 12/06/19 03:56 12/06/19 03:56 12/06/19 03:56 12/06/19 03:56 General appearance: Present: no acute distress - Respiratory Respiratory effort: normal Respiratory: bilateral: CTA - Cardiovascular Rhythm: regular Heart Sounds: Present: S1 & S2 - Extremities Extremities: No edema - Abdominal General gastrointestinal: soft, non-tender, normal bowel sounds - Neurologic Neurologic: CNII-XII intact HEART Score - HEART Score Troponin: Troponin T < 0.010 ng/mL (0.00-0.029) 11/22/19 21:19 Results - Labs CBC & Chem 7: 11/30/19 05:42 11/30/19 05:42 Labs: Laboratory Last Values WBC 6.2 K/mm3 (4.5-11.0) 11/30/19 05:42 RBC 4.81 M/mm3 (3.65-5.03) 11/30/19 05:42 Hgb 15.2 gm/dl (11.8-15.2) 11/30/19 05:42 Hct 45.3 % (35.5-45.6) 11/30/19 05:42 MCV 94 fl (84-94) 11/30/19 05:42 MCH 32 pg (28-32) 11/30/19 05:42 MCHC 34 % (32-34) 11/30/19 05:42 RDW 13.6 % (13.2-15.2) 11/30/19 05:42 Plt Count 287 K/mm3 (140-440) 11/30/19 05:42 Lymph % (Auto) 49.2 % (13.4-35.0) H 11/30/19 05:42 [place] % (Auto) 9.7 % (0.0-7.3) H 11/30/19 05:42 Eos % (Auto) 1.3 % (0.0-4.3) 11/30/19 05:42 Baso % (Auto) 0.9 % (0.0-1.8) 11/30/19 05:42 Lymph # 3.0 K/mm3 (1.2-5.4) 11/30/19 05:42 [place] # 0.6 K/mm3 (0.0-0.8) 11/30/19 05:42 Eos # 0.1 K/mm3 (0.0-0.4) 11/30/19 05:42 Baso # 0.1 K/mm3 (0.0-0.1) 11/30/19 05:42 Seg Neutrophils % 38.9 % (40.0-70.0) L 11/30/19 05:42 Seg Neutrophils # 2.4 K/mm3 (1.8-7.7) 11/30/19 05:42 PT 13.0 Sec. (12.2-14.9) 11/24/19 04:51 INR 0.97 (0.87-1.13) 11/24/19 04:51 APTT 25.6 Sec. (24.2-36.6) 11/22/19 21:19 Thrombin Time 16.5 Sec. (15.1-19.6) 11/22/19 21:19 Sodium 137 mmol/L (137-145) 11/30/19 05:42 Potassium 4.4 mmol/L (3.6-5.0) 11/30/19 05:42 Chloride 98.4 mmol/L (98-107) 11/30/19 05:42 Carbon Dioxide 28 mmol/L (22-30) 11/30/19 05:42 Anion Gap 15 mmol/L 11/30/19 05:42 BUN 9 mg/dL (9-20) 11/30/19 05:42 Creatinine 1.0 mg/dL (0.8-1.3) 11/30/19 05:42 Estimated GFR > 60 ml/min 11/30/19 05:42 BUN/Creatinine Ratio 9 % 11/30/19 05:42 Glucose 110 mg/dL (75-100) H 11/30/19 05:42 POC Glucose 92 (70-105) 11/30/19 17:28 Calcium 9.6 mg/dL (8.4-10.2) 11/30/19 05:42 Troponin T < 0.010 ng/mL (0.00-0.029) 11/22/19 21:19 Triglycerides 112 mg/dL (2-149) 11/24/19 04:51 Cholesterol 165 mg/dL (50-199) 11/24/19 04:51 LDL Cholesterol Direct 115 mg/dL (50-130) 11/24/19 04:51 HDL Cholesterol 40 mg/dL (40-59) 11/24/19 04:51 Cholesterol/HDL Ratio 4.12 % 11/24/19 04:51 - Diagnostic Impressions Diagnostic Impressions: Echocardiogram 11/23/19 01:33 Transthoracic Echocardiogram Indication: Stroke BP: 117/80 HR: 59 Conclusions *The left ventricular size is moderate to severely dilated. *Mild to moderate concentric left ventricular hypertrophy is observed. *Global left ventricular systolic function is severely decreased. *The estimated ejection fraction is 25-30%. *The left atrium is mildly dilated. *There is mild mitral regurgitation. *There is trace tricuspid regurgitation. *A patent foramen ovale is not demonstrated by agitated saline contrast. Findings Left Ventricle: The left ventricular size is moderate to severely dilated. Mild to moderate concentric left ventricular hypertrophy is observed. Global left ventricular systolic function is severely decreased. The estimated ejection fraction is 25-30%. Left Atrium: The left atrium is mildly dilated. Right Ventricle: The right ventricular cavity size is normal. Right Atrium: The right atrial cavity size is normal. A patent foramen ovale is not demonstrated by agitated saline contrast. Aortic Valve: The aortic valve is trileaflet. The aortic valve leaflets are moderately thickened. There is no evidence of aortic regurgitation. There is no evidence of aortic stenosis. Mitral Valve: The mitral valve leaflets are mildly thickened. There is mild mitral regurgitation. There is no evidence of mitral stenosis. Tricuspid Valve: There is trace tricuspid regurgitation. No pulmonary hypertension is noted. Pulmonic Valve: There is trace pulmonic regurgitation. Pericardium: There is no pericardial effusion. Aorta: There is no dilatation of the ascending aorta. There is no dilatation of the aortic root. Venous: The inferior vena cava appears normal in size. Contrast: Intravenous agitated saline contrast was used to assess intracardiac shunting. Measurements Chambers 2D Name Value Normal Range IVSd (2D) 0.84 cm (0.6 - 1.1) LVPWd (2D) 0.72 cm (0.6 - 1.1) LVIDd (2D) 5.18 cm (3.7 - 5.6) LVIDs (2D) 4.28 cm (2 - 3.8) LV FS (2D) 17.42 % - EF Teichholz (2D) 36.07 % - Ao root diameter (2D) 3 cm (2 - 3.7) Volumes/Mass Name Value Normal Range LA ESV SP 4CH (A/L) 40.41 ml - LA ESV SP 2CH (A/L) 49.7 ml - LA ESV BP (A/L) 46.36 ml - LA ESV BP (A/L) index 21.77 ml/m2 - LA ESV SP 4CH (MOD) 37.38 ml - LA ESV SP 2CH (MOD) 46.48 ml - LA ESV BP (MOD) 43.09 ml - LA ESV BP (MOD) index 20.23 ml/m2 - LV EDV SP 4CH (MOD) 165.74 ml - LV ESV SP 4CH (MOD) 106.68 ml - EF SP 4CH (MOD) 35.63 % - LV EDV SP 2CH (MOD) 175.78 ml - LV ESV SP 2CH (MOD) 119.93 ml - EF SP 2CH (MOD) 31.77 % - LV EDV BP 174.71 ml - LV ESV BP 114.64 ml - BP EF (MOD) 34.38 % - Diastolic/Systolic Function Name Value Normal Range MV E-wave Vmax 0.5 m/sec - MV deceleration time 236.5 msec - MV A-wave Vmax 0.69 m/sec - MV E:A ratio 0.72 ratio - Aortic Valve Name Value Normal Range AV Vmax 0.81 m/sec - AV VTI 15.84 cm - AV peak gradient 2.61 mmHg - AV mean gradient 1.42 mmHg - LVOT diameter 2.14 cm - LVOT Vmax 0.71 m/sec - LVOT VTI 14.04 cm - LVOT peak gradient 2 mmHg - LVOT mean gradient 1.12 mmHg - SV LVOT 50.55 ml - ISAIAS (continuity Vmax) 3.15 cm2 - ISAIAS (continuity VTI) 3.19 cm2 - Ascending Ao 2.98 cm - Mitral Valve Name Value Normal Range MV Vmax 0.6 m/sec - MV VTI 19.86 cm - MV peak gradient 1.46 mmHg - MV mean gradient 0.56 mmHg - MV PHT 58.46 msec - MR Vmax 3.91 m/sec - MVA (PHT) 3.76 cm2 - MVA (continuity VTI) 2.54 cm2 - Tricuspid Valve Name Value Normal Range TR Vmax 2.07 m/sec - TR peak gradient 17 mmHg - RAP 3 mmHg - RVSP 20 mmHg - IVC diameter 0.98 cm (1.2 - 2.3) Pulmonic Valve/Qp:Qs Name Value Normal Range PV Vmax 0.73 m/sec - PV VTI 13.32 cm - PV peak gradient 2.15 mmHg - PV mean gradient 1.2 mmHg - RVOT Vmax 0.66 m/sec - RVOT VTI 11.66 cm - RVOT peak gradient 1.77 mmHg - Mejia/IV: Voiding Method Toilet IV Catheter Type [Right INT / Saline Lock Forearm] IV Catheter Type [Left Peripheral IV Antecubital] Active Medications - Current Medications Current Medications: Generic Name Dose Route Start Last Admin Trade Name Freq PRN Reason Stop Dose Admin Acetaminophen 650 mg 11/23/19 01:28 12/03/19 11:06 Tylenol PO 650 mg Q4H PRN Administration Pain, Mild (1-3) Aspirin 81 mg 12/03/19 10:00 12/05/19 10:36 Halfprin Ec PO 81 mg QDAY YELENA Administration Atorvastatin Calcium 40 mg 11/23/19 22:00 12/05/19 21:22 Lipitor PO 40 mg QHS YELENA Administration Bisacodyl 10 mg 11/23/19 01:28 Dulcolax MO QDAY PRN Constipation Carvedilol 3.125 mg 11/26/19 22:00 12/05/19 21:22 Coreg PO 3.125 mg BID YELENA Administration Clopidogrel Bisulfate 75 mg 12/03/19 10:00 12/05/19 10:36 Plavix PO 75 mg QDAY YELENA Administration Heparin Sodium (Porcine) 5,000 unit 11/23/19 08:00 12/06/19 06:16 Heparin SUB-Q 5,000 unit Q8HR YELENA Administration Lisinopril 2.5 mg 11/27/19 10:00 12/05/19 10:36 Zestril PO 2.5 mg QDAY YELENA Administration Magnesium Hydroxide 30 ml 11/23/19 01:28 Milk Of Magnesia PO Q4H PRN Constipation Metoclopramide HCl 10 mg 11/23/19 01:28 Reglan PO Q6H PRN Nausea And Vomiting Morphine Sulfate 2 mg 11/23/19 01:28 Morphine IV Q4H PRN Pain, Moderate (4-6) Ondansetron HCl 4 mg 11/23/19 01:28 Zofran IV Q8H PRN Nausea And Vomiting Promethazine HCl 25 mg 11/23/19 01:28 Phenergan MO Q6H PRN Nausea And Vomiting Sodium Chloride 10 ml 11/23/19 10:00 12/05/19 21:22 Sodium Chloride Flush Syringe 10 Ml IV 10 ml BID YELEAN Administration Sodium Chloride 10 ml 11/23/19 01:28 Sodium Chloride Flush Syringe 10 Ml IV PRN PRN LINE FLUSH Spironolactone 25 mg 11/30/19 10:00 12/05/19 10:36 Aldactone PO 25 mg QDAY YELENA Administration Nutrition/Malnutrition Assess - Dietary Evaluation Nutrition/Malnutrition Findings: Nutrition Notes Start: 11/23/19 09:15 Freq: Status: Active Protocol: Document 12/02/19 14:03 MALIK (Rec: 12/02/19 14:07 MALIK [email or web address]) Nutrition Notes Initial or Follow up Reassessment Current Diagnosis Stroke Other Pertinent Diagnosis Dilated cardiomyopathy Current Diet Cardiac mech soft Labs/Tests no current available Pertinent Medications reviewed Height 6 ft Weight 77.1 kg [place] Body Weight (kg) 80.90 BMI 23.0 Weight Status Appropriate Subjective/Other Information Spoke to pt via phone at 12:59 . He says he is tolerating PO intake; denies need for ONS at this time. He consumed 67% of meals yesterday. Burn Absent Trauma Absent Current % PO Fair (50-74%) #1 Nutrition Diagnosis Inadequate oral intake As Evidenced by Signs and Symptoms pt consuming >50% of meals Diagnosis Progress(for reassessment Improved documentation) Is patient on ventilator? No Is Patient Ambulatory and/or Out of Bed No REE-(Breathitt-St. Jeor-confined to bed) [phone] Calculation Used for Recommendations Panda Cosby Additional Notes Pro needs 0.8-1g/k-77g/ day Fluid needs 1ml/kcal Nutrition Intervention Change Diet Order: Continue current diet order Goal #1 PO intakes to meet at least 75 % energy and pro needs Follow-Up By: 12/07/19 Additional Comments F/U: intakes, wt
[2019-12-06] MEDS: ASPIRIN EC 81 MG TAB PO SCH (09:16)
[2019-12-06] MEDS: SPIRONOLACTONE 25 MG TAB PO SCH (09:16)
[2019-12-06] MEDS: CLOPIDOGREL 75 MG TAB PO SCH (09:16)
[2019-12-06] MEDS: carvediloL 3.125 MG TAB PO SCH ×2 (09:17→22:00)
[2019-12-06] MEDS: LISINOPRIL 5 MG TAB PO SCH (09:17)
--- NOTE | 2019-12-06 12:13 | Progress Note ---
Assessment and Plan Dilated Cardiomyopathy, uncertain duration Presumed ischemic as MPI consistent with large prior infarct with no significant ischemia Echo: LVEF 25-30%. Bubble study is negative. pt unable to provide hx due to confusion there are no tachyarrhythmias seen on telemetry thus far. Acute CVA (alexandreaaason for presentation) Recommendations: Continue optimal medical therapy for ischemic dilated cardiomyopathy and underlying coronary artery disease as tolerated. As outpatient, he may benefit from a 30-day event monitor. Subjective Date of service: 12/06/19 Principal diagnosis: Stroke Interval history: No interval cardiac changes. Objective Vital Signs Temp Pulse Pulse Resp BP Pulse Ox 12/06/19 11:47 98.1 F 12/06/19 11:46 61 95/63 99 12/06/19 10:00 55 L 12/06/19 09:21 102/45 12/06/19 09:17 64 108/76 12/06/19 09:16 64 108/76 12/06/19 08:58 79 16 12/06/19 03:56 98.5 F 63 18 102/57 97 12/06/19 00:25 98.5 F 64 18 97/55 100 12/05/19 22:00 68 18 12/05/19 20:26 99.7 F H 63 18 94/61 96 12/05/19 17:33 98.1 F 62 20 108/67 98 12/05/19 14:00 68 12/05/19 13:37 97.7 F 65 20 97 - Physical Examination General: No Apparent Distress HEENT: Positive: PERRL Neck: Positive: trachea midline Cardiac: Positive: Reg Rate and Rhythm Lungs: Positive: Decreased Breath Sounds Neuro: Positive: Grossly Intact Extremities: Absent: edema
--- NOTE | 2019-12-06 16:50 | Progress Note ---
Assessment and Plan Assessment and plan: Hospital course [id number]--[place] male presenting to the emergency room today with a complaint of expressive aphasia and right-sided weakness. Patient was brought into the emergency room by EMS. He was said to have had a change in mental status and right-sided weakness witnessed by bystanders who indicated that symptoms may have started about 1800 today. Patient unable to give a very good history corresponds by nodding his head when asked questions. CT scan of the head was compatible with CVA.Tele neurologist was consulted. Initial recommendation was to transfer to another facility however final decision as taken by the neurologists and neurosurgeons was to monitor patient in this facility as patient does not need any urgent intervention. 11/28/2019. Await MRI and MARTIN. Continue Toprol and lisinopril. Awaiting placement. 11/29/2019. Await MRI and MARTIN. Will discuss with case management obtaining consent for MRI. Apparently, patient was unable to give consent when attempted on Friday. MARTIN per cardiology recommendations. Placement per PT recommendations. 11/29. Needs MARTIN. Mental health to evaluate. Tried some numbers he gave me today but no response. He may need a 2PC if he has no capacity. 11/30. Discussed with cardiology - his TTE was clear and did not show any clot so there is no need for a MARTIN. WIll update neurology. Still not able to get MRI brain as no family member has been contacted. 12/01. Neurology following. Added plavix 75 mg daily. He will be on aspirin 81 mg daily as well. Since we are not able to get an MRI brain, will order a repeat CT head. 12/02. CT head 12/01 shows evolving infarct. Cardiology performed a stress test today. Results still pending. 12/03. Has no complaints today. Cardiology following. 12/04. No change in condition. DC planning 12/05. Needs placement. CM working on it. Assessment and Plan Left MCA CVA Carotid ultrasound reveals 50% stenosis bilaterally. MRI brain ordered but not able to fill the form due his mental status. No family has been reached as he is not able to produce contact numbers. Discussed with neurology. Repeat CT head shows infarct Advised adding plavix 75 mg daily and switch aspirin to 81 mg daily. Continue statins. Discussed with cardiology - no MARTIN indicated as TTE showed no clot. Dilated cardiomyopathy. Echocardiogram revealed left ventricular size moderate to severely dilated. Mild to moderate concentric left ventricular hypertrophy. Global left ventricular systolic function severely decreased with EF of 25%. Cardiology following; continue Toprol-XL and low-dose lisinopril. Stress test performed 12/02- no reversible ischemia Disposition - He will need placement but there is no family member contacted yet as he does not recall. CM/GEOVANNY on the case. Awaiting placement History Interval history: See assessment and plan Hospitalist Physical - Constitutional Vitals: Temp Pulse Resp BP Pulse Ox 98.1 F 61 16 95/63 99 12/06/19 11:47 12/06/19 11:46 12/06/19 08:58 12/06/19 11:46 12/06/19 11:46 General appearance: Present: no acute distress - EENT Eyes: Present: PERRL - Neck Neck: Present: supple - Respiratory Respiratory effort: normal - Cardiovascular Heart Sounds: Present: S1 & S2 - Extremities Extremities: No edema - Abdominal General gastrointestinal: soft, non-tender, non-distended - Neurologic Neurologic: CNII-XII intact HEART Score - HEART Score Troponin: Troponin T < 0.010 ng/mL (0.00-0.029) 11/22/19 21:19 Results - Labs CBC & Chem 7: 11/30/19 05:42 11/30/19 05:42 Labs: Laboratory Last Values WBC 6.2 K/mm3 (4.5-11.0) 11/30/19 05:42 RBC 4.81 M/mm3 (3.65-5.03) 11/30/19 05:42 Hgb 15.2 gm/dl (11.8-15.2) 11/30/19 05:42 Hct 45.3 % (35.5-45.6) 11/30/19 05:42 MCV 94 fl (84-94) 11/30/19 05:42 MCH 32 pg (28-32) 11/30/19 05:42 MCHC 34 % (32-34) 11/30/19 05:42 RDW 13.6 % (13.2-15.2) 11/30/19 05:42 Plt Count 287 K/mm3 (140-440) 11/30/19 05:42 Lymph % (Auto) 49.2 % (13.4-35.0) H 11/30/19 05:42 Armstrong % (Auto) 9.7 % (0.0-7.3) H 11/30/19 05:42 Eos % (Auto) 1.3 % (0.0-4.3) 11/30/19 05:42 Baso % (Auto) 0.9 % (0.0-1.8) 11/30/19 05:42 Lymph # 3.0 K/mm3 (1.2-5.4) 11/30/19 05:42 Armstrong # 0.6 K/mm3 (0.0-0.8) 11/30/19 05:42 Eos # 0.1 K/mm3 (0.0-0.4) 11/30/19 05:42 Baso # 0.1 K/mm3 (0.0-0.1) 11/30/19 05:42 Seg Neutrophils % 38.9 % (40.0-70.0) L 11/30/19 05:42 Seg Neutrophils # 2.4 K/mm3 (1.8-7.7) 11/30/19 05:42 PT 13.0 Sec. (12.2-14.9) 11/24/19 04:51 INR 0.97 (0.87-1.13) 11/24/19 04:51 APTT 25.6 Sec. (24.2-36.6) 11/22/19 21:19 Thrombin Time 16.5 Sec. (15.1-19.6) 11/22/19 21:19 Sodium 137 mmol/L (137-145) 11/30/19 05:42 Potassium 4.4 mmol/L (3.6-5.0) 11/30/19 05:42 Chloride 98.4 mmol/L (98-107) 11/30/19 05:42 Carbon Dioxide 28 mmol/L (22-30) 11/30/19 05:42 Anion Gap 15 mmol/L 11/30/19 05:42 BUN 9 mg/dL (9-20) 11/30/19 05:42 Creatinine 1.0 mg/dL (0.8-1.3) 11/30/19 05:42 Estimated GFR > 60 ml/min 11/30/19 05:42 BUN/Creatinine Ratio 9 % 11/30/19 05:42 Glucose 110 mg/dL (75-100) H 11/30/19 05:42 POC Glucose 92 (70-105) 11/30/19 17:28 Calcium 9.6 mg/dL (8.4-10.2) 11/30/19 05:42 Troponin T < 0.010 ng/mL (0.00-0.029) 11/22/19 21:19 Triglycerides 112 mg/dL (2-149) 11/24/19 04:51 Cholesterol 165 mg/dL (50-199) 11/24/19 04:51 LDL Cholesterol Direct 115 mg/dL (50-130) 11/24/19 04:51 HDL Cholesterol 40 mg/dL (40-59) 11/24/19 04:51 Cholesterol/HDL Ratio 4.12 % 11/24/19 04:51 - Diagnostic Impressions Diagnostic Impressions: Echocardiogram 11/23/19 01:33 Transthoracic Echocardiogram Indication: Stroke BP: 117/80 HR: 59 Conclusions *The left ventricular size is moderate to severely dilated. *Mild to moderate concentric left ventricular hypertrophy is observed. *Global left ventricular systolic function is severely decreased. *The estimated ejection fraction is 25-30%. *The left atrium is mildly dilated. *There is mild mitral regurgitation. *There is trace tricuspid regurgitation. *A patent foramen ovale is not demonstrated by agitated saline contrast. Findings Left Ventricle: The left ventricular size is moderate to severely dilated. Mild to moderate concentric left ventricular hypertrophy is observed. Global left ventricular systolic function is severely decreased. The estimated ejection fraction is 25-30%. Left Atrium: The left atrium is mildly dilated. Right Ventricle: The right ventricular cavity size is normal. Right Atrium: The right atrial cavity size is normal. A patent foramen ovale is not demonstrated by agitated saline contrast. Aortic Valve: The aortic valve is trileaflet. The aortic valve leaflets are moderately thickened. There is no evidence of aortic regurgitation. There is no evidence of aortic stenosis. Mitral Valve: The mitral valve leaflets are mildly thickened. There is mild mitral regurgitation. There is no evidence of mitral stenosis. Tricuspid Valve: There is trace tricuspid regurgitation. No pulmonary hypertension is noted. Pulmonic Valve: There is trace pulmonic regurgitation. Pericardium: There is no pericardial effusion. Aorta: There is no dilatation of the ascending aorta. There is no dilatation of the aortic root. Venous: The inferior vena cava appears normal in size. Contrast: Intravenous agitated saline contrast was used to assess intracardiac shunting. Measurements Chambers 2D Name Value Normal Range IVSd (2D) 0.84 cm (0.6 - 1.1) LVPWd (2D) 0.72 cm (0.6 - 1.1) LVIDd (2D) 5.18 cm (3.7 - 5.6) LVIDs (2D) 4.28 cm (2 - 3.8) LV FS (2D) 17.42 % - EF Teichholz (2D) 36.07 % - Ao root diameter (2D) 3 cm (2 - 3.7) Volumes/Mass Name Value Normal Range LA ESV SP 4CH (A/L) 40.41 ml - LA ESV SP 2CH (A/L) 49.7 ml - LA ESV BP (A/L) 46.36 ml - LA ESV BP (A/L) index 21.77 ml/m2 - LA ESV SP 4CH (MOD) 37.38 ml - LA ESV SP 2CH (MOD) 46.48 ml - LA ESV BP (MOD) 43.09 ml - LA ESV BP (MOD) index 20.23 ml/m2 - LV EDV SP 4CH (MOD) 165.74 ml - LV ESV SP 4CH (MOD) 106.68 ml - EF SP 4CH (MOD) 35.63 % - LV EDV SP 2CH (MOD) 175.78 ml - LV ESV SP 2CH (MOD) 119.93 ml - EF SP 2CH (MOD) 31.77 % - LV EDV BP 174.71 ml - LV ESV BP 114.64 ml - BP EF (MOD) 34.38 % - Diastolic/Systolic Function Name Value Normal Range MV E-wave Vmax 0.5 m/sec - MV deceleration time 236.5 msec - MV A-wave Vmax 0.69 m/sec - MV E:A ratio 0.72 ratio - Aortic Valve Name Value Normal Range AV Vmax 0.81 m/sec - AV VTI 15.84 cm - AV peak gradient 2.61 mmHg - AV mean gradient 1.42 mmHg - LVOT diameter 2.14 cm - LVOT Vmax 0.71 m/sec - LVOT VTI 14.04 cm - LVOT peak gradient 2 mmHg - LVOT mean gradient 1.12 mmHg - SV LVOT 50.55 ml - ISAIAS (continuity Vmax) 3.15 cm2 - ISAIAS (continuity VTI) 3.19 cm2 - Ascending Ao 2.98 cm - Mitral Valve Name Value Normal Range MV Vmax 0.6 m/sec - MV VTI 19.86 cm - MV peak gradient 1.46 mmHg - MV mean gradient 0.56 mmHg - MV PHT 58.46 msec - MR Vmax 3.91 m/sec - MVA (PHT) 3.76 cm2 - MVA (continuity VTI) 2.54 cm2 - Tricuspid Valve Name Value Normal Range TR Vmax 2.07 m/sec - TR peak gradient 17 mmHg - RAP 3 mmHg - RVSP 20 mmHg - IVC diameter 0.98 cm (1.2 - 2.3) Pulmonic Valve/Qp:Qs Name Value Normal Range PV Vmax 0.73 m/sec - PV VTI 13.32 cm - PV peak gradient 2.15 mmHg - PV mean gradient 1.2 mmHg - RVOT Vmax 0.66 m/sec - RVOT VTI 11.66 cm - RVOT peak gradient 1.77 mmHg - Mejia/IV: Voiding Method Toilet IV Catheter Type [Right INT / Saline Lock Forearm] IV Catheter Type [Left Peripheral IV Antecubital] Active Medications - Current Medications Current Medications: Generic Name Dose Route Start Last Admin Trade Name Freq PRN Reason Stop Dose Admin Acetaminophen 650 mg 11/23/19 01:28 12/03/19 11:06 Tylenol PO 650 mg Q4H PRN Administration Pain, Mild (1-3) Aspirin 81 mg 12/03/19 10:00 12/06/19 09:16 Halfprin Ec PO 81 mg QDAY YELENA Administration Atorvastatin Calcium 40 mg 11/23/19 22:00 12/05/19 21:22 Lipitor PO 40 mg QHS YELENA Administration Bisacodyl 10 mg 11/23/19 01:28 Dulcolax [place] QDAY PRN Constipation Carvedilol 3.125 mg 11/26/19 22:00 12/06/19 09:17 Coreg PO 3.125 mg BID YELENA Administration Clopidogrel Bisulfate 75 mg 12/03/19 10:00 12/06/19 09:16 Plavix PO 75 mg QDAY YELENA Administration Heparin Sodium (Porcine) 5,000 unit 11/23/19 08:00 12/06/19 14:46 Heparin SUB-Q 5,000 unit Q8HR YELENA Administration Lisinopril 2.5 mg 11/27/19 10:00 12/06/19 09:17 Zestril PO 2.5 mg QDAY YELENA Administration Magnesium Hydroxide 30 ml 11/23/19 01:28 Milk Of Magnesia PO Q4H PRN Constipation Metoclopramide HCl 10 mg 11/23/19 01:28 Reglan PO Q6H PRN Nausea And Vomiting Morphine Sulfate 2 mg 11/23/19 01:28 Morphine IV Q4H PRN Pain, Moderate (4-6) Ondansetron HCl 4 mg 11/23/19 01:28 Zofran IV Q8H PRN Nausea And Vomiting Promethazine HCl 25 mg 11/23/19 01:28 Phenergan [place] Q6H PRN Nausea And Vomiting Sodium Chloride 10 ml 11/23/19 10:00 12/06/19 09:19 Sodium Chloride Flush Syringe 10 Ml IV 10 ml BID YELENA Administration Sodium Chloride 10 ml 11/23/19 01:28 Sodium Chloride Flush Syringe 10 Ml IV PRN PRN LINE FLUSH Spironolactone 25 mg 11/30/19 10:00 12/06/19 09:16 Aldactone PO 25 mg QDAY YELENA Administration Nutrition/Malnutrition Assess - Dietary Evaluation Nutrition/Malnutrition Findings: Nutrition Notes Start: 11/23/19 09:15 Freq: Status: Active Protocol: Document 12/02/19 14:03 MALIK (Rec: 12/02/19 14:07 MALIK [email or web address] [email or web address]) Nutrition Notes Initial or Follow up Reassessment Current Diagnosis Stroke Other Pertinent Diagnosis Dilated cardiomyopathy Current Diet Cardiac [facility] soft Labs/Tests no current available Pertinent Medications reviewed Height 6 ft Weight 77.1 kg [place] Body Weight (kg) 80.90 BMI 23.0 Weight Status Appropriate Subjective/Other Information Spoke to pt via phone at 12:59 . He says he is tolerating PO intake; denies need for ONS at this time. He consumed 67% of meals yesterday. Burn Absent Trauma Absent Current % PO Fair (50-74%) #1 Nutrition Diagnosis Inadequate oral intake As Evidenced by Signs and Symptoms pt consuming >50% of meals Diagnosis Progress(for reassessment Improved documentation) Is patient on ventilator? No Is Patient Ambulatory and/or Out of Bed No REE-([facility]-confined to bed) 1958.444 Calculation Used for Recommendations [facility] Additional Notes Pro needs 0.8-1g/k-77g/ day Fluid needs 1ml/kcal Nutrition Intervention Change Diet Order: Continue current diet order Goal #1 PO intakes to meet at least 75 % energy and pro needs Follow-Up By: 12/07/19 Additional Comments F/U: intakes, wt
[2019-12-07] MEDS: HEPARIN 5,000 UNIT/1 ML VIAL SUB-Q SCH ×3 (06:18→21:59)
--- NOTE | 2019-12-07 09:59 | Progress Note ---
Assessment and Plan Dilated Cardiomyopathy, uncertain duration Presumed ischemic as MPI consistent with large prior inferolateral infarct with no significant reversible ischemia Echo: LVEF 25-30%. Bubble study is negative. pt unable to provide hx due to confusion there are no tachyarrhythmias seen on telemetry thus far. Acute CVA (reason for presentation) Recommendations: Continue optimal medical therapy for ischemic dilated cardiomyopathy and underlying, asymptomatic coronary artery disease as tolerated. As outpatient, he may benefit from a 30-day event monitor. Otherwise, conservative cardiac management. Subjective Date of service: 12/07/19 Principal diagnosis: Stroke Interval history: Patient is resting in bed comfortably. He has no cardiac complaints. Objective Vital Signs Temp Pulse Pulse Resp BP Pulse Ox 12/07/19 07:37 98.3 F 64 18 95/63 91 12/07/19 03:46 98.4 F 56 L 18 89/44 97 12/06/19 23:27 98.0 F 61 16 112/72 98 12/06/19 22:00 56 L 74 18 12/06/19 19:31 98.7 F 64 18 96/55 96 12/06/19 16:18 98.7 F 62 18 102/59 97 12/06/19 11:47 98.1 F 12/06/19 11:46 61 95/63 99 12/06/19 10:00 55 L - Physical Examination General: No Apparent Distress HEENT: Positive: PERRL Neck: Positive: trachea midline Cardiac: Positive: Reg Rate and Rhythm Lungs: Positive: Decreased Breath Sounds Neuro: Positive: Grossly Intact Extremities: Absent: edema
[2019-12-07] MEDS: ASPIRIN EC 81 MG TAB PO SCH (10:35)
[2019-12-07] MEDS: CLOPIDOGREL 75 MG TAB PO SCH (10:35)
[2019-12-07] MEDS: LISINOPRIL 5 MG TAB PO SCH (10:42)
[2019-12-07] MEDS: carvediloL 3.125 MG TAB PO SCH ×2 (10:42→22:03)
[2019-12-07] MEDS: SPIRONOLACTONE 25 MG TAB PO SCH ×3 (16:35→22:05)
--- NOTE | 2019-12-07 21:10 | Progress Note ---
Assessment and Plan - Patient Problems (1) CVA (cerebral vascular accident) Current Visit: Yes Status: Acute Plan to address problem: CVA protocol: Antiplatelet therapy, CT scan brain reviewed, physical therapy, Occupational Therapy, speech therapy. Statin therapy (2) Dilated cardiomyopathy Current Visit: Yes Status: Acute Plan to address problem: Cardiology consulted. Patient medically optimized. (3) DVT prophylaxis Current Visit: Yes Status: Acute Plan to address problem: SCD to bilateral lower extremities while in bed History Interval history: 59 YO Male HD #14 with CVA who was medically optimized at the time of my evaluation. Patient states that "I am working on getting a place to stay". Patient denies fever, chills, chest pain, palpitation, productive cough, recent ill contacts. Patient resting comfortably in bed. Patient denies any new a.m. complaints. Patient is neurologically intact and exhibits decision-making capacity. Hospitalist Physical - Constitutional Vitals: Temp Pulse Resp BP Pulse Ox 98.8 F 70 16 97/56 94 12/07/19 19:01 12/07/19 20:55 12/07/19 19:01 12/07/19 20:55 12/07/19 19:01 General appearance: Present: no acute distress - EENT Eyes: Present: PERRL, EOM intact ENT: hearing intact - Neck Neck: Present: supple - Respiratory Respiratory effort: normal Respiratory: bilateral: CTA - Cardiovascular Rhythm: regular Heart Sounds: Present: S1 & S2 - Extremities Extremities: no ischemia Peripheral Pulses: within normal limits - Abdominal General gastrointestinal: soft, non-tender, non-distended - Integumentary Integumentary: Present: clear, dry - Psychiatric Psychiatric: appropriate mood/affect, intact judgment & insight, memory intact, cooperative - Neurologic Neurologic: CNII-XII intact HEART Score - HEART Score Troponin: Troponin T < 0.010 ng/mL (0.00-0.029) 11/22/19 21:19 Results - Labs CBC & Chem 7: 11/30/19 05:42 11/30/19 05:42 Labs: Laboratory Last Values WBC 6.2 K/mm3 (4.5-11.0) 11/30/19 05:42 RBC 4.81 M/mm3 (3.65-5.03) 11/30/19 05:42 Hgb 15.2 gm/dl (11.8-15.2) 11/30/19 05:42 Hct 45.3 % (35.5-45.6) 11/30/19 05:42 MCV 94 fl (84-94) 11/30/19 05:42 MCH 32 pg (28-32) 11/30/19 05:42 MCHC 34 % (32-34) 11/30/19 05:42 RDW 13.6 % (13.2-15.2) 11/30/19 05:42 Plt Count 287 K/mm3 (140-440) 11/30/19 05:42 Lymph % (Auto) 49.2 % (13.4-35.0) H 11/30/19 05:42 [place] % (Auto) 9.7 % (0.0-7.3) H 11/30/19 05:42 Eos % (Auto) 1.3 % (0.0-4.3) 11/30/19 05:42 Baso % (Auto) 0.9 % (0.0-1.8) 11/30/19 05:42 Lymph # 3.0 K/mm3 (1.2-5.4) 11/30/19 05:42 [place] # 0.6 K/mm3 (0.0-0.8) 11/30/19 05:42 Eos # 0.1 K/mm3 (0.0-0.4) 11/30/19 05:42 Baso # 0.1 K/mm3 (0.0-0.1) 11/30/19 05:42 Seg Neutrophils % 38.9 % (40.0-70.0) L 11/30/19 05:42 Seg Neutrophils # 2.4 K/mm3 (1.8-7.7) 11/30/19 05:42 PT 13.0 Sec. (12.2-14.9) 11/24/19 04:51 INR 0.97 (0.87-1.13) 11/24/19 04:51 APTT 25.6 Sec. (24.2-36.6) 11/22/19 21:19 Thrombin Time 16.5 Sec. (15.1-19.6) 11/22/19 21:19 Sodium 137 mmol/L (137-145) 11/30/19 05:42 Potassium 4.4 mmol/L (3.6-5.0) 11/30/19 05:42 Chloride 98.4 mmol/L (98-107) 11/30/19 05:42 Carbon Dioxide 28 mmol/L (22-30) 11/30/19 05:42 Anion Gap 15 mmol/L 11/30/19 05:42 BUN 9 mg/dL (9-20) 11/30/19 05:42 Creatinine 1.0 mg/dL (0.8-1.3) 11/30/19 05:42 Estimated GFR > 60 ml/min 11/30/19 05:42 BUN/Creatinine Ratio 9 % 11/30/19 05:42 Glucose 110 mg/dL (75-100) H 11/30/19 05:42 POC Glucose 97 (70-105) 12/07/19 07:55 Calcium 9.6 mg/dL (8.4-10.2) 11/30/19 05:42 Troponin T < 0.010 ng/mL (0.00-0.029) 11/22/19 21:19 Triglycerides 112 mg/dL (2-149) 11/24/19 04:51 Cholesterol 165 mg/dL (50-199) 11/24/19 04:51 LDL Cholesterol Direct 115 mg/dL (50-130) 11/24/19 04:51 HDL Cholesterol 40 mg/dL (40-59) 11/24/19 04:51 Cholesterol/HDL Ratio 4.12 % 11/24/19 04:51 - Diagnostic Impressions Diagnostic Impressions: Echocardiogram 11/23/19 01:33 Transthoracic Echocardiogram Indication: Stroke BP: 117/80 HR: 59 Conclusions *The left ventricular size is moderate to severely dilated. *Mild to moderate concentric left ventricular hypertrophy is observed. *Global left ventricular systolic function is severely decreased. *The estimated ejection fraction is 25-30%. *The left atrium is mildly dilated. *There is mild mitral regurgitation. *There is trace tricuspid regurgitation. *A patent foramen ovale is not demonstrated by agitated saline contrast. Findings Left Ventricle: The left ventricular size is moderate to severely dilated. Mild to moderate concentric left ventricular hypertrophy is observed. Global left ventricular systolic function is severely decreased. The estimated ejection fraction is 25-30%. Left Atrium: The left atrium is mildly dilated. Right Ventricle: The right ventricular cavity size is normal. Right Atrium: The right atrial cavity size is normal. A patent foramen ovale is not demonstrated by agitated saline contrast. Aortic Valve: The aortic valve is trileaflet. The aortic valve leaflets are moderately thickened. There is no evidence of aortic regurgitation. There is no evidence of aortic stenosis. Mitral Valve: The mitral valve leaflets are mildly thickened. There is mild mitral regurgitation. There is no evidence of mitral stenosis. Tricuspid Valve: There is trace tricuspid regurgitation. No pulmonary hypertension is noted. Pulmonic Valve: There is trace pulmonic regurgitation. Pericardium: There is no pericardial effusion. Aorta: There is no dilatation of the ascending aorta. There is no dilatation of the aortic root. Venous: The inferior vena cava appears normal in size. Contrast: Intravenous agitated saline contrast was used to assess intracardiac shunting. Measurements Chambers 2D Name Value Normal Range IVSd (2D) 0.84 cm (0.6 - 1.1) LVPWd (2D) 0.72 cm (0.6 - 1.1) LVIDd (2D) 5.18 cm (3.7 - 5.6) LVIDs (2D) 4.28 cm (2 - 3.8) LV FS (2D) 17.42 % - EF Teichholz (2D) 36.07 % - Ao root diameter (2D) 3 cm (2 - 3.7) Volumes/Mass Name Value Normal Range LA ESV SP 4CH (A/L) 40.41 ml - LA ESV SP 2CH (A/L) 49.7 ml - LA ESV BP (A/L) 46.36 ml - LA ESV BP (A/L) index 21.77 ml/m2 - LA ESV SP 4CH (MOD) 37.38 ml - LA ESV SP 2CH (MOD) 46.48 ml - LA ESV BP (MOD) 43.09 ml - LA ESV BP (MOD) index 20.23 ml/m2 - LV EDV SP 4CH (MOD) 165.74 ml - LV ESV SP 4CH (MOD) 106.68 ml - EF SP 4CH (MOD) 35.63 % - LV EDV SP 2CH (MOD) 175.78 ml - LV ESV SP 2CH (MOD) 119.93 ml - EF SP 2CH (MOD) 31.77 % - LV EDV BP 174.71 ml - LV ESV BP 114.64 ml - BP EF (MOD) 34.38 % - Diastolic/Systolic Function Name Value Normal Range MV E-wave Vmax 0.5 m/sec - MV deceleration time 236.5 msec - MV A-wave Vmax 0.69 m/sec - MV E:A ratio 0.72 ratio - Aortic Valve Name Value Normal Range AV Vmax 0.81 m/sec - AV VTI 15.84 cm - AV peak gradient 2.61 mmHg - AV mean gradient 1.42 mmHg - LVOT diameter 2.14 cm - LVOT Vmax 0.71 m/sec - LVOT VTI 14.04 cm - LVOT peak gradient 2 mmHg - LVOT mean gradient 1.12 mmHg - SV LVOT 50.55 ml - ISAIAS (continuity Vmax) 3.15 cm2 - ISAIAS (continuity VTI) 3.19 cm2 - Ascending Ao 2.98 cm - Mitral Valve Name Value Normal Range MV Vmax 0.6 m/sec - MV VTI 19.86 cm - MV peak gradient 1.46 mmHg - MV mean gradient 0.56 mmHg - MV PHT 58.46 msec - MR Vmax 3.91 m/sec - MVA (PHT) 3.76 cm2 - MVA (continuity VTI) 2.54 cm2 - Tricuspid Valve Name Value Normal Range TR Vmax 2.07 m/sec - TR peak gradient 17 mmHg - RAP 3 mmHg - RVSP 20 mmHg - IVC diameter 0.98 cm (1.2 - 2.3) Pulmonic Valve/Qp:Qs Name Value Normal Range PV Vmax 0.73 m/sec - PV VTI 13.32 cm - PV peak gradient 2.15 mmHg - PV mean gradient 1.2 mmHg - RVOT Vmax 0.66 m/sec - RVOT VTI 11.66 cm - RVOT peak gradient 1.77 mmHg - Mejia/IV: Voiding Method Toilet IV Catheter Type [Right INT / Saline Lock Forearm] IV Catheter Type [Left Peripheral IV Antecubital] Active Medications - Current Medications Current Medications: Generic Name Dose Route Start Last Admin Trade Name Freq PRN Reason Stop Dose Admin Acetaminophen 650 mg 11/23/19 01:28 12/03/19 11:06 Tylenol PO 650 mg Q4H PRN Administration Pain, Mild (1-3) Aspirin 81 mg 12/03/19 10:00 12/07/19 10:35 Halfprin Ec PO 81 mg QDAY [facility] Administration Atorvastatin Calcium 40 mg 11/23/19 22:00 12/06/19 21:59 Lipitor PO 40 mg QHS [facility] Administration Bisacodyl 10 mg 11/23/19 01:28 Dulcolax AR QDAY PRN Constipation Carvedilol 3.125 mg 11/26/19 22:00 12/07/19 10:42 Coreg PO 3.125 mg BID YELENA Administration Clopidogrel Bisulfate 75 mg 12/03/19 10:00 12/07/19 10:35 Plavix PO 75 mg QDAY [facility] Administration Heparin Sodium (Porcine) 5,000 unit 11/23/19 08:00 12/07/19 15:47 Heparin SUB-Q 5,000 unit Q8HR [facility] Administration Lisinopril 2.5 mg 11/27/19 10:00 12/07/19 10:42 Zestril PO 2.5 mg QDAY [facility] Administration Magnesium Hydroxide 30 ml 11/23/19 01:28 Milk Of Magnesia PO Q4H PRN Constipation Metoclopramide HCl 10 mg 11/23/19 01:28 Reglan PO Q6H PRN Nausea And Vomiting Morphine Sulfate 2 mg 11/23/19 01:28 Morphine IV Q4H PRN Pain, Moderate (4-6) Ondansetron HCl 4 mg 11/23/19 01:28 Zofran IV Q8H PRN Nausea And Vomiting Promethazine HCl 25 mg 11/23/19 01:28 Phenergan AR Q6H PRN Nausea And Vomiting Sodium Chloride 10 ml 11/23/19 10:00 12/07/19 10:36 Sodium Chloride Flush Syringe 10 Ml IV 10 ml BID [facility] Administration Sodium Chloride 10 ml 11/23/19 01:28 Sodium Chloride Flush Syringe 10 Ml IV PRN PRN LINE FLUSH Spironolactone 25 mg 12/07/19 20:00 12/07/19 20:55 Aldactone PO Not Given 1999 [facility] Nutrition/Malnutrition Assess - Dietary Evaluation Nutrition/Malnutrition Findings: Nutrition Notes Start: 11/23/19 09:15 Freq: Status: Active Protocol: Document 12/07/19 14:55 MALIK (Rec: 12/07/19 14:57 MALIK [email or web address]- [email or web address]) Nutrition Notes Initial or Follow up Reassessment Current Diagnosis Stroke Other Pertinent Diagnosis Dilated cardiomyopathy Current Diet Cardiac [facility] soft Labs/Tests reviewed Pertinent Medications reviewed Height 6 ft Weight 76.5 kg [place] Body Weight (kg) 80.90 BMI 22.8 Weight Status Appropriate Subjective/Other Information Spoke with pt via phone at 14: 21. He reports eating 100% of meals. Percent of energy/protein needs met: 100% energy/pro Burn Absent Trauma Absent Current % PO Good (75-100%) #1 Nutrition Diagnosis Inadequate oral intake As Evidenced by Signs and Symptoms pt consuming 100% of meals Diagnosis Progress(for reassessment Resolved documentation) Is patient on ventilator? No Is Patient Ambulatory and/or Out of Bed Yes REE-([place]-ambulatory/OOB) [ 2109.900 NUTR.[id number]] Calculation Used for Recommendations [place] Additional Notes Pro needs 0.8-1g/k-77g/ day Fluid needs 1ml/kcal Nutrition Intervention Revisit per MD consult or patient Sign Off request:
[2019-12-08] MEDS: HEPARIN 5,000 UNIT/1 ML VIAL SUB-Q SCH ×3 (06:09→23:43)
--- NOTE | 2019-12-08 10:06 | Progress Note ---
Assessment and Plan - Patient Problems (1) Dilated cardiomyopathy Current Visit: Yes Status: Acute Plan to address problem: Patient was admitted with a suspected CVA. Further evaluation with an echocardiogram showed a dilated cardiomyopathy, chronicity uncertain. Lexiscan thallium stress test showed a large infarct in the inferior lateral posterior lateral wall, with no [place]roy-infarct ischemia. This suggests an underlying ischemic cardiomyopathy. We will continue optimal medical therapy for asymptomatic dilated cardiomyopathy, coronary artery disease and systolic left ventricular dysfunction. As outpatient, we will plan a 30-day event monitor to evaluate for occult atrial tachyarrhythmias. Subjective Date of service: 12/08/19 Principal diagnosis: Stroke Interval history: Patient is comfortable, no chest pain, no shortness of breath, looks and feels well. Objective Vital Signs Temp Pulse Resp BP BP Pulse Ox 12/08/19 07:39 98.3 F 67 18 99/72 98 12/08/19 03:43 98.5 F 64 18 94/45 99 12/07/19 22:42 98.7 F 69 18 97/55 97 12/07/19 22:08 104/62 12/07/19 22:05 67 104/62 12/07/19 22:03 67 104/62 12/07/19 22:00 71 12/07/19 19:01 98.8 F 70 16 97/56 94 12/07/19 15:42 98.6 F 73 18 93/55 75 L 12/07/19 10:38 66 100/62 - Physical Examination General: No Apparent Distress HEENT: Positive: PERRL Neck: Positive: trachea midline Cardiac: Positive: Reg Rate and Rhythm Lungs: Positive: Decreased Breath Sounds Neuro: Positive: Grossly Intact Abdomen: Positive: Soft Skin: Positive: Clear Extremities: Absent: edema
[2019-12-08] MEDS: CLOPIDOGREL 75 MG TAB PO SCH (10:11)
[2019-12-08] MEDS: ASPIRIN EC 81 MG TAB PO SCH (10:11)
[2019-12-08] MEDS: carvediloL 3.125 MG TAB PO SCH ×2 (10:11→23:41)
[2019-12-08] MEDS: LISINOPRIL 5 MG TAB PO SCH (10:11)
--- NOTE | 2019-12-08 21:49 | Progress Note ---
Assessment and Plan - Patient Problems (1) CVA (cerebral vascular accident) Current Visit: Yes Status: Acute Plan to address problem: CVA protocol: Antiplatelet therapy, CT scan brain reviewed, physical therapy, Occupational Therapy, speech therapy. Statin therapy (2) Dilated cardiomyopathy Current Visit: Yes Status: Acute Plan to address problem: Cardiology consulted. Patient medically optimized. (3) DVT prophylaxis Current Visit: Yes Status: Acute Plan to address problem: SCD to bilateral lower extremities while in bed History Interval history: 59 YO Male HD #15 with CVA who was medically optimized at the time of my evaluation. Patient states that "I am working on getting a place to stay". Patient denies fever, chills, chest pain, palpitation, productive cough, recent ill contacts. Patient resting comfortably in bed. Patient denies any new a.m. complaints. Patient is neurologically intact and exhibits decision-making capacity. Patient tolerating diet and has no acute distress. Discharge plann ing. Hospitalist Physical - Constitutional Vitals: Temp Pulse Resp BP Pulse Ox 98.7 F 65 16 100/54 97 12/08/19 19:41 12/08/19 19:41 12/08/19 19:41 12/08/19 19:41 12/08/19 19:41 General appearance: Present: no acute distress - EENT Eyes: Present: PERRL, EOM intact ENT: hearing intact - Neck Neck: Present: supple - Respiratory Respiratory effort: normal Respiratory: bilateral: CTA - Cardiovascular Rhythm: regular Heart Sounds: Present: S1 & S2 - Extremities Extremities: no ischemia Peripheral Pulses: within normal limits - Abdominal General gastrointestinal: soft, non-tender, non-distended - Integumentary Integumentary: Present: clear, warm, dry - Psychiatric Psychiatric: appropriate mood/affect, cooperative - Neurologic Neurologic: CNII-XII intact HEART Score - HEART Score Troponin: Troponin T < 0.010 ng/mL (0.00-0.029) 11/22/19 21:19 Results - Labs CBC & Chem 7: 11/30/19 05:42 11/30/19 05:42 Labs: Laboratory Last Values WBC 6.2 K/mm3 (4.5-11.0) 11/30/19 05:42 RBC 4.81 M/mm3 (3.65-5.03) 11/30/19 05:42 Hgb 15.2 gm/dl (11.8-15.2) 11/30/19 05:42 Hct 45.3 % (35.5-45.6) 11/30/19 05:42 MCV 94 fl (84-94) 11/30/19 05:42 MCH 32 pg (28-32) 11/30/19 05:42 MCHC 34 % (32-34) 11/30/19 05:42 RDW 13.6 % (13.2-15.2) 11/30/19 05:42 Plt Count 287 K/mm3 (140-440) 11/30/19 05:42 Lymph % (Auto) 49.2 % (13.4-35.0) H 11/30/19 05:42 [place] % (Auto) 9.7 % (0.0-7.3) H 11/30/19 05:42 Eos % (Auto) 1.3 % (0.0-4.3) 11/30/19 05:42 Baso % (Auto) 0.9 % (0.0-1.8) 11/30/19 05:42 Lymph # 3.0 K/mm3 (1.2-5.4) 11/30/19 05:42 [place] # 0.6 K/mm3 (0.0-0.8) 11/30/19 05:42 Eos # 0.1 K/mm3 (0.0-0.4) 11/30/19 05:42 Baso # 0.1 K/mm3 (0.0-0.1) 11/30/19 05:42 Seg Neutrophils % 38.9 % (40.0-70.0) L 11/30/19 05:42 Seg Neutrophils # 2.4 K/mm3 (1.8-7.7) 11/30/19 05:42 PT 13.0 Sec. (12.2-14.9) 11/24/19 04:51 INR 0.97 (0.87-1.13) 11/24/19 04:51 APTT 25.6 Sec. (24.2-36.6) 11/22/19 21:19 Thrombin Time 16.5 Sec. (15.1-19.6) 11/22/19 21:19 Sodium 137 mmol/L (137-145) 11/30/19 05:42 Potassium 4.4 mmol/L (3.6-5.0) 11/30/19 05:42 Chloride 98.4 mmol/L (98-107) 11/30/19 05:42 Carbon Dioxide 28 mmol/L (22-30) 11/30/19 05:42 Anion Gap 15 mmol/L 11/30/19 05:42 BUN 9 mg/dL (9-20) 11/30/19 05:42 Creatinine 1.0 mg/dL (0.8-1.3) 11/30/19 05:42 Estimated GFR > 60 ml/min 11/30/19 05:42 BUN/Creatinine Ratio 9 % 11/30/19 05:42 Glucose 110 mg/dL (75-100) H 11/30/19 05:42 POC Glucose 97 (70-105) 12/07/19 07:55 Calcium 9.6 mg/dL (8.4-10.2) 11/30/19 05:42 Troponin T < 0.010 ng/mL (0.00-0.029) 11/22/19 21:19 Triglycerides 112 mg/dL (2-149) 11/24/19 04:51 Cholesterol 165 mg/dL (50-199) 11/24/19 04:51 LDL Cholesterol Direct 115 mg/dL (50-130) 11/24/19 04:51 HDL Cholesterol 40 mg/dL (40-59) 11/24/19 04:51 Cholesterol/HDL Ratio 4.12 % 11/24/19 04:51 - Diagnostic Impressions Diagnostic Impressions: Echocardiogram 11/23/19 01:33 Transthoracic Echocardiogram Indication: Stroke BP: 117/80 HR: 59 Conclusions *The left ventricular size is moderate to severely dilated. *Mild to moderate concentric left ventricular hypertrophy is observed. *Global left ventricular systolic function is severely decreased. *The estimated ejection fraction is 25-30%. *The left atrium is mildly dilated. *There is mild mitral regurgitation. *There is trace tricuspid regurgitation. *A patent foramen ovale is not demonstrated by agitated saline contrast. Findings Left Ventricle: The left ventricular size is moderate to severely dilated. Mild to moderate concentric left ventricular hypertrophy is observed. Global left ventricular systolic function is severely decreased. The estimated ejection fraction is 25-30%. Left Atrium: The left atrium is mildly dilated. Right Ventricle: The right ventricular cavity size is normal. Right Atrium: The right atrial cavity size is normal. A patent foramen ovale is not demonstrated by agitated saline contrast. Aortic Valve: The aortic valve is trileaflet. The aortic valve leaflets are moderately thickened. There is no evidence of aortic regurgitation. There is no evidence of aortic stenosis. Mitral Valve: The mitral valve leaflets are mildly thickened. There is mild mitral regurgitation. There is no evidence of mitral stenosis. Tricuspid Valve: There is trace tricuspid regurgitation. No pulmonary hypertension is noted. Pulmonic Valve: There is trace pulmonic regurgitation. Pericardium: There is no pericardial effusion. Aorta: There is no dilatation of the ascending aorta. There is no dilatation of the aortic root. Venous: The inferior vena cava appears normal in size. Contrast: Intravenous agitated saline contrast was used to assess intracardiac shunting. Measurements Chambers 2D Name Value Normal Range IVSd (2D) 0.84 cm (0.6 - 1.1) LVPWd (2D) 0.72 cm (0.6 - 1.1) LVIDd (2D) 5.18 cm (3.7 - 5.6) LVIDs (2D) 4.28 cm (2 - 3.8) LV FS (2D) 17.42 % - EF Teichholz (2D) 36.07 % - Ao root diameter (2D) 3 cm (2 - 3.7) Volumes/Mass Name Value Normal Range LA ESV SP 4CH (A/L) 40.41 ml - LA ESV SP 2CH (A/L) 49.7 ml - LA ESV BP (A/L) 46.36 ml - LA ESV BP (A/L) index 21.77 ml/m2 - LA ESV SP 4CH (MOD) 37.38 ml - LA ESV SP 2CH (MOD) 46.48 ml - LA ESV BP (MOD) 43.09 ml - LA ESV BP (MOD) index 20.23 ml/m2 - LV EDV SP 4CH (MOD) 165.74 ml - LV ESV SP 4CH (MOD) 106.68 ml - EF SP 4CH (MOD) 35.63 % - LV EDV SP 2CH (MOD) 175.78 ml - LV ESV SP 2CH (MOD) 119.93 ml - EF SP 2CH (MOD) 31.77 % - LV EDV BP 174.71 ml - LV ESV BP 114.64 ml - BP EF (MOD) 34.38 % - Diastolic/Systolic Function Name Value Normal Range MV E-wave Vmax 0.5 m/sec - MV deceleration time 236.5 msec - MV A-wave Vmax 0.69 m/sec - MV E:A ratio 0.72 ratio - Aortic Valve Name Value Normal Range AV Vmax 0.81 m/sec - AV VTI 15.84 cm - AV peak gradient 2.61 mmHg - AV mean gradient 1.42 mmHg - LVOT diameter 2.14 cm - LVOT Vmax 0.71 m/sec - LVOT VTI 14.04 cm - LVOT peak gradient 2 mmHg - LVOT mean gradient 1.12 mmHg - SV LVOT 50.55 ml - ISAIAS (continuity Vmax) 3.15 cm2 - ISAIAS (continuity VTI) 3.19 cm2 - Ascending Ao 2.98 cm - Mitral Valve Name Value Normal Range MV Vmax 0.6 m/sec - MV VTI 19.86 cm - MV peak gradient 1.46 mmHg - MV mean gradient 0.56 mmHg - MV PHT 58.46 msec - MR Vmax 3.91 m/sec - MVA (PHT) 3.76 cm2 - MVA (continuity VTI) 2.54 cm2 - Tricuspid Valve Name Value Normal Range TR Vmax 2.07 m/sec - TR peak gradient 17 mmHg - RAP 3 mmHg - RVSP 20 mmHg - IVC diameter 0.98 cm (1.2 - 2.3) Pulmonic Valve/Qp:Qs Name Value Normal Range PV Vmax 0.73 m/sec - PV VTI 13.32 cm - PV peak gradient 2.15 mmHg - PV mean gradient 1.2 mmHg - RVOT Vmax 0.66 m/sec - RVOT VTI 11.66 cm - RVOT peak gradient 1.77 mmHg - Mejia/IV: Voiding Method Toilet IV Catheter Type [Right INT / Saline Lock Forearm] IV Catheter Type [Left Peripheral IV Antecubital] Active Medications - Current Medications Current Medications: Generic Name Dose Route Start Last Admin Trade Name Freq PRN Reason Stop Dose Admin Acetaminophen 650 mg 11/23/19 01:28 12/03/19 11:06 Tylenol PO 650 mg Q4H PRN Administration Pain, Mild (1-3) Aspirin 81 mg 12/03/19 10:00 12/08/19 10:11 Halfprin Ec PO 81 mg QDAY [facility] Administration Atorvastatin Calcium 40 mg 11/23/19 22:00 12/07/19 21:59 Lipitor PO 40 mg QHS YELENA Administration Bisacodyl 10 mg 11/23/19 01:28 Dulcolax [place] QDAY PRN Constipation Carvedilol 3.125 mg 11/26/19 22:00 12/08/19 10:11 Coreg PO 3.125 mg BID YELENA Administration Clopidogrel Bisulfate 75 mg 12/03/19 10:00 12/08/19 10:11 Plavix PO 75 mg QDAY [facility] Administration Heparin Sodium (Porcine) 5,000 unit 11/23/19 08:00 12/08/19 17:03 Heparin SUB-Q Not Given Q8HR [facility] Lisinopril 2.5 mg 11/27/19 10:00 12/08/19 10:11 Zestril PO 2.5 mg QDAY [facility] Administration Magnesium Hydroxide 30 ml 11/23/19 01:28 Milk Of Magnesia PO Q4H PRN Constipation Metoclopramide HCl 10 mg 11/23/19 01:28 Reglan PO Q6H PRN Nausea And Vomiting Morphine Sulfate 2 mg 11/23/19 01:28 Morphine IV Q4H PRN Pain, Moderate (4-6) Ondansetron HCl 4 mg 11/23/19 01:28 Zofran IV Q8H PRN Nausea And Vomiting Promethazine HCl 25 mg 11/23/19 01:28 Phenergan [place] Q6H PRN Nausea And Vomiting Sodium Chloride 10 ml 11/23/19 10:00 12/08/19 10:11 Sodium Chloride Flush Syringe 10 Ml IV 10 ml BID YELENA Administration Sodium Chloride 10 ml 11/23/19 01:28 Sodium Chloride Flush Syringe 10 Ml IV PRN PRN LINE FLUSH Spironolactone 25 mg 12/07/19 20:00 12/07/19 22:05 Aldactone PO 25 mg 2000 YELENA Administration Nutrition/Malnutrition Assess - Dietary Evaluation Nutrition/Malnutrition Findings: Nutrition Notes Start: 11/23/19 09:15 Freq: Status: Active Protocol: Document 12/07/19 14:55 MALIK (Rec: 12/07/19 14:57 MALIK [email or web address]- [email or web address]) Nutrition Notes Initial or Follow up Reassessment Current Diagnosis Stroke Other Pertinent Diagnosis Dilated cardiomyopathy Current Diet Cardiac [facility] soft Labs/Tests reviewed Pertinent Medications reviewed Height 6 ft Weight 76.5 kg [place] Body Weight (kg) 80.90 BMI 22.8 Weight Status Appropriate Subjective/Other Information Spoke with pt via phone at 14: 21. He reports eating 100% of meals. Percent of energy/protein needs met: 100% energy/pro Burn Absent Trauma Absent Current % PO Good (75-100%) #1 Nutrition Diagnosis Inadequate oral intake As Evidenced by Signs and Symptoms pt consuming 100% of meals Diagnosis Progress(for reassessment Resolved documentation) Is patient on ventilator? No Is Patient Ambulatory and/or Out of Bed Yes REE-([place]-ambulatory/OOB) [ 2109.900 [id number]] Calculation Used for Recommendations [place] Additional Notes Pro needs 0.8-1g/k-77g/ day Fluid needs 1ml/kcal Nutrition Intervention Revisit per MD consult or patient Sign Off request:
[2019-12-08] MEDS: SPIRONOLACTONE 25 MG TAB PO SCH (23:40)
[2019-12-09] MEDS ORDERED: SODIUM CHLORIDE 0.9% 250ML 250 ML IV ONE (03:00)
[2019-12-09] MEDS: HEPARIN 5,000 UNIT/1 ML VIAL SUB-Q SCH ×3 (07:14→21:45)
[2019-12-09] MEDS ORDERED: SODIUM CHLORIDE 0.9% 500 ML 500 ML IV ONE (09:27)
[2019-12-09] MEDS: ASPIRIN EC 81 MG TAB PO SCH (09:51)
--- NOTE | 2019-12-09 10:39 | Progress Note ---
Assessment and Plan Dilated Cardiomyopathy, uncertain duration Presumed ischemic as MPI consistent with large prior inferolateral infarct with no significant reversible ischemia Echo: LVEF 25-30%. Bubble study is negative. pt unable to provide hx due to confusion there are no tachyarrhythmias seen on telemetry thus far. Acute CVA (reason for presentation) on plavix and aspirin Recommendations: Afterload reducing agents were discontinued due to low blood pressure readings. Continue low dose beta blockers, aspirin and statin therapy for underlying coronary artery disease. As outpatient, he may benefit from a 30-day event monitor. Otherwise, conservative cardiac management. Subjective Date of service: 12/09/19 Principal diagnosis: Stroke Interval history: Patient is resting in bed comfortably. He has no cardiac complaints. Objective Vital Signs Temp Pulse Resp BP Pulse Ox 12/09/19 09:00 97.9 F 72 16 85/44 99 12/09/19 08:09 63 12/09/19 03:59 97.7 F 63 16 100/45 99 12/08/19 23:41 70 86/61 12/08/19 23:40 70 89/61 12/08/19 23:39 97.7 F 70 18 89/61 99 12/08/19 22:00 70 12/08/19 19:41 98.7 F 65 16 100/54 97 12/08/19 17:23 98.3 F 70 16 94/40 99 - Physical Examination General: No Apparent Distress HEENT: Positive: PERRL Neck: Positive: trachea midline Cardiac: Positive: Reg Rate and Rhythm Neuro: Positive: Grossly Intact Extremities: Absent: edema
--- NOTE | 2019-12-09 13:42 | Discharge Summary ---
Providers - Providers Date of Admission: 11/22/19 23:29 Attending physician: ROSA BATISTA 11/23/19 Consult to Physician [CONS] Routine Comment: Consulting Provider: ROBB PRAKASH Physician Instructions: Reason For Exam: CVA 11/24/19 12:35 Speech Therapy Evaluation and Treat [CONS] Routine Reason For Exam: CONSULT FOR SWALLOWING EVALUATION 11/26/19 11:02 Consult to Physician [CONS] Routine Comment: Consulting Provider: NATALIE RGANADOS Physician Instructions: Reason For Exam: dilated CM 12/07/19 11:24 Physical Therapy Evaluation and Treat [CONS] Routine Comment: Reason For Exam: debility Primary care physician: ADMINISTRATIVE [employer]ER Hospitalization Condition: Fair Disposition: DC-30 STILL A PATIENT - Discharge Diagnoses (1) CVA (cerebral vascular accident) Status: Acute (2) Dilated cardiomyopathy Status: Acute (3) DVT prophylaxis Status: Acute Exam - Constitutional Vitals: Temp Pulse Resp BP Pulse Ox 98.0 F 55 L 20 107/59 97 12/09/19 11:39 12/09/19 11:39 12/09/19 11:39 12/09/19 11:39 12/09/19 11:39 Plan Follow up with: PRIMARY CARE, [Primary Care Provider] - 7 Days Prescriptions: Spironolactone [Aldactone] 25 mg PO QDAY #30 tablet Aspirin [Aspirin BABY CHEW TAB] 81 mg PO QDAY #30 tab.chew carvediloL [Coreg] 3.125 mg PO DAILY #30 tablet Clopidogrel [Plavix] 75 mg PO QDAY #30 tablet Simvastatin 40 mg PO QHS #30 tablet Lisinopril [Zestril TAB] 2.5 mg PO QDAY #30 tab
[2019-12-09] MEDS: carvediloL 3.125 MG TAB PO SCH (21:45)
[2019-12-10] MEDS: HEPARIN 5,000 UNIT/1 ML VIAL SUB-Q SCH ×2 (06:50→17:17)
[2019-12-10] MEDS: ASPIRIN EC 81 MG TAB PO SCH (09:13)
[2019-12-10] MEDS: carvediloL 3.125 MG TAB PO SCH (09:14)
--- NOTE | 2019-12-10 09:47 | Progress Note ---
Assessment and Plan Dilated Cardiomyopathy, uncertain duration Presumed ischemic as MPI consistent with large prior inferolateral infarct with no significant reversible ischemia Echo: LVEF 25-30%. Bubble study is negative. pt unable to provide hx due to confusion there are no tachyarrhythmias seen on telemetry thus far. ACEi held due to low BP readings Acute CVA (reason for presentation) on plavix and aspirin Recommendations: Continue low dose beta blockers, aspirin and statin therapy for ischemic cardiomyopathy and underlying coronary artery disease. As outpatient, he may benefit from a 30-day event monitor. Otherwise, conservative cardiac management. Subjective Date of service: 12/10/19 Principal diagnosis: Stroke Interval history: Patient is resting in bed comfortably. No interval cardiac events. Objective Vital Signs Temp Pulse Resp BP Pulse Ox 12/10/19 09:14 63 98/65 12/10/19 07:44 98.3 F 63 19 98/65 97 12/10/19 03:40 98.0 F 65 18 100/45 100 12/10/19 00:04 98.0 F 67 18 96/49 96 12/09/19 22:00 63 12/09/19 21:00 96 12/09/19 19:56 98.0 F 67 18 101/65 98 12/09/19 15:35 68 96 12/09/19 15:34 98.5 F 66 18 94/50 90 12/09/19 11:39 98.0 F 55 L 20 107/59 97 - Physical Examination General: No Apparent Distress HEENT: Positive: PERRL Neck: Positive: trachea midline Cardiac: Positive: Reg Rate and Rhythm Lungs: Positive: Decreased Breath Sounds Neuro: Positive: Grossly Intact Extremities: Absent: edema
[2019-12-10] MEDS ORDERED: CLOPIDOGREL 75 MG TAB PO SCH (10:00)
[2019-12-10 16:04] VITALS: BP 118/75
== END 2019-12-10 19:10 | disposition home or self-care (01) | DRG 65 ==
LOC: ED 20:45 → CC1 23:29 → 4A 11-23 23:26
PROVIDERS: ADMIT Internal Medicine Geriatric Medicine; ATTEND Internal Medicine
DX: I63.9 Cerebral infarction, unspecified (principal); I42.0 Dilated cardiomyopathy; G81.91 Hemiplegia, unspecified affecting right dominant side; I65.22 Occlusion and stenosis of left carotid artery
CPT/HCPCS: 36415; 70450; 70496; 70498; 78452; 80048; 80061; 82962; 84484; 85025; 85610; 85670; 85730; 93005; 93017; 93306; 93880; 94760; G0378; A9270-GY; A9502; J1644; J2785; J7040; J7050; Q9967